=== PATIENT | female | born 1935 | race Caucasian/White ===

== ENCOUNTER 2016-06-27 10:47 | Inpatient (IN) | payer MEDICARE, OTHER ==
[~2016-06-27] VITALS: Ht 147.3 cm; Wt 53.6 kg
[2016-06-27] VITALS (207 sets, daily range): BP systolic 101–147; BP diastolic 58–84; PULSE 78–90; TEMP 97.9–100.4; O2SAT 94–100
[~2016-06-27 10:47] MED LIST: 00186-0370-20 IH; 00186-0372-20 IH; ALBUTEROL SULFAT3 M3 IH; ALBUTEROL0.83 MG/ML IH; ALDACTONE 25MG25 M1 PO; AMBIEN 10MG10 MG PO; AMBIEN 5MG TABLE5 MG PO; AMOXICILLIN 50500 MG PO; ASMANEX TW0.22 MG/A1 IH; AVELOX 400MG T400 MG PO; BACTRIM DS 8001 TAB PO; CALCIUM + D 6001 TA1 PO; CEFTIN 250250 MG/TAB PO; CEFTIN500 MG PO; CELEBREX 200MG200 MG PO; CEPHALEXIN500 M1 PO; CETIRIZINE PO; CLEOCIN HCL300 MG PO; CLINDAMYCIN300 MG PO; CORDARONE200 MG/TAB PO; COZAAR 25MG25 MG/TAB PO; DEXILANT PO; DIFLUCAN100 MG PO; DIFLUCAN150 MG PO; DILTIAZEM30 MG PO; DIOVAN160 M1 PO; DIOVAN80 M1 PO; DORYX100 PO; DOXYCYCLINE 10100 MG PO; DULCOLAX S10 MG/SUPP RC; FORTAMET500 MG PO; FOSAMAX 70MG TA70 MG PO; FUROSEMIDE40 MG PO; GLIPIZIDE5 MG PO; GLUCOPHAGE1000 MG PO; GLUCOPHAGE500 MG/TAB PO; GLUCOTROL 5M5 MG/TAB PO; GLUCOTROL10 MG PO; HCTZ; HCTZ 25MG TAB25 MG PO; HCTZ 25MG25 MG PO; ISORDIL 5MG TABL5 MG PO; JANUVIA 100MG100 MG PO; JANUVIA50 MG PO; K-TAB20; K-TAB20 PO; KAPIDEX60 MG PO; KEPPRA 500MG500 MG PO; KLONOPIN 0.5MG0.5 MG PO; KLOR-CON M2020 MEQ PO; LASIX 20MG TABL20 MG PO; LASIX 40MG TABL40 MG PO; LEVAQUIN 750MG750 M1 PO; LEVOTHYROXINE0.05 M1 PO; LIPITOR 10MG10 MG PO; LORTAB 2.5/5001 TAB PO; LORTAB 5/500 501 TAB PO; MACRODANTIN100 PO; MELATONIN3 M1; METFORMIN500 MG PO; MICRO-K 1010 MEQ PO; MIRALAX 17GM PK1 PKT PO; MIRALAX PA17 GM/Dose PO; MIRALAX119G PO; MIRALAX17 GM/DOSE PO; MIRAPEX 1MG PO; MIRAPEX PO; MIRAPEX1 MG PO; MORPHINE10 MG PO; MULTAQ400 MG PO; MULTIPLE VITAMI1 TAB PO; MVI; NITROSTAT0.4 MG/TAB SL; NYSTATIN CREAM15 GM TP; OMNICEF 300MG300 MG PO; PACERONE100 MG PO; PACERONE200 MG PO; PEPCID 20MG TAB20 MG PO; PLAVIX 75MG TAB75 MG PO; POTASSIUM CHLO10 ME2 PO; PREDNISONE10 MG PO; PREDNISONE20 MG PO; PREMARIN 0.60.625 M1 VG; PROTONIX 40MG T40 MG PO; PROTONIX20 MG PO; PROVENTIL0.09 MG/A1 IH; RT ADVAIR 228 DISKUS IH; RT ALBUTER2.5 MG/0.5 IH; SIMVASTATIN20 MG PO; SINEMET 10/101 UDTAB PO; SINGULAIR 110 MG/TAB PO; SINGULAIR10 MG PO; STALEVO; STALEVO 100 251 TAB PO; STALEVO PO; STOOL SOFTENER100 MG PO; SYNTHROID0.05 MG PO; SYNTHROID0.075 MG PO; SYNTHROID0.075 MG/T PO; TEMAZEPAM15 MG PO; TESSALON P100 MG/CAP PO; VENTOLIN0.09 MG IH; ZITHROMAX 250M250 MG PO; ZITHROMAX TRI-500 MG PO; ZOCOR 20MG20 MG PO; ZOCOR 40MG40 MG PO; ZOCOR20 MG PO; ZOFRAN 4MG T4 MG/TAB PO; ZOFRAN ODT8 MG PO; ZOFRAN4 M1 PO; ZOLPIDEM10 MG PO; ZYRTEC 10MG10 MG PO; ZYRTEC10 MG PO; [UNRECOGNIZED DRUG - OTHER] PO; eye drops
[2016-06-27] MEDS ORDERED: RT ADVAIR 228 DISKUS IH (12:02)
[2016-06-27 14:01] LABS: BASO # 0.1 (0.0-0.2); BASO % 0.7 % (0.0-2.0); EOS # 4.2 (0.0-0.7); GRAN # 9.8 (1.4-6.5); GRAN % 58.1 % (42.2-75.2); LYMPH # 1.8 (1.2-3.4); LYMPH % 10.8 % (20.0-51.0); MEAN CELL VOLUME 92 fl (80.0-100.0); MEAN CORPUSCULAR HGB CONC 32 g/dl (33.0-37.0); MEAN PLATELET VOLUME 10.2 fl (7.4-10.4); MONO # 0.9 (0.1-0.6); MONO % 5.3 % (1.7-9.3); PLATELET COUNT 158 K/mm3 (130-400); RED BLOOD COUNT 3.97 M/mm3 (4.10-5.30); REDCELL DISTRIBUTION WIDTH-CV 14.6 % (11.5-14.5); WHITE BLOOD COUNT 16.9 K/mm3 (4.8-10.8)
[2016-06-27 14:11] LABS: EOS % 24.9 % (0-4.0); HEMATOCRIT 36.5 % (37.0-47.0); HEMOGLOBIN 11.8 g/dl (12.5-16.0); MEAN CORPUSCULAR HEMOGLOBIN 30 pg (27.0-31.0)
[2016-06-27 14:21] LABS: ADJUSTED CALCIUM 9.6 mg/dL (8.4-10.2); ALBUMIN 4.1 gm/dL (3.5-5.0); BILIRUBIN,TOTAL 0.9 mg/dL (0.0-1.0); CALCIUM 9.7 mg/dL (8.4-10.2); CREATININE, serum 0.64 mg/dL (0.52-1.25); POTASSIUM 3.7 mmol/L (3.4-5.0); TOTAL PROTEIN 8.2 gm/dL (6.4-8.2)
[2016-06-27 15:11] LABS: ALLEN TEST NO; ARTERIAL BLD GAS O2 SATURATION 94.1 % (92-100); ARTERIAL BLD GAS TCO2 CT 36.9; ARTERIAL BLOOD GAS BASE EXCESS 7.4 (-2-2); ARTERIAL BLOOD GAS PHT 7.36 C (7.35-7.45); ARTERIAL BLOOD GAS PO2 74.6 mmHg (80-100); ARTERIAL BLOOD GAS PO2T 74.6 (80-100); ARTERIAL BLOOD GAS pH 7.36 (7.35-7.45); ATS? YES; OXYHEMOGLOBIN 93.3 %
[2016-06-28] VITALS (296 sets, daily range): BP systolic 104–137; BP diastolic 56–81; PULSE 73–91; TEMP 97.7–99.3; O2SAT 88–100
[2016-06-28 05:59] LABS: MEAN CELL VOLUME 92 fl (80.0-100.0); MEAN CORPUSCULAR HGB CONC 33 g/dl (33.0-37.0); MEAN PLATELET VOLUME 10.3 fl (7.4-10.4); PLATELET COUNT 150 K/mm3 (130-400); REDCELL DISTRIBUTION WIDTH-CV 14.5 % (11.5-14.5); WHITE BLOOD COUNT 9.7 K/mm3 (4.8-10.8)
[2016-06-28 06:13] LABS: ADD PATHOLOGY DIFF REVIEW NO; HEMATOCRIT 32.2 % (37.0-47.0); HEMOGLOBIN 10.5 g/dl (12.5-16.0); MEAN CORPUSCULAR HEMOGLOBIN 30 pg (27.0-31.0)
[2016-06-28 06:24] LABS: ADJUSTED CALCIUM 9.6 mg/dL (8.4-10.2); ALBUMIN 3.6 gm/dL (3.5-5.0); BILIRUBIN,TOTAL 0.5 mg/dL (0.0-1.0); CALCIUM 9.3 mg/dL (8.4-10.2); CREATININE, serum 0.71 mg/dL (0.52-1.25); POTASSIUM 3.9 mmol/L (3.4-5.0); TOTAL PROTEIN 7.3 gm/dL (6.4-8.2)
[2016-06-28 12:00] LABS: BAND 7 % (0-10); NEUTROPHILS 82 % (42.0-75.2); PLATELET ESTIMATE NORMAL (NORMAL); TOTAL CELLS COUNTED 100
[2016-06-29 01:04] VITALS: BP 128/78; PULSE 95; TEMP 98.3
[2016-06-29 04:30] VITALS: BP 110/57; PULSE 78; TEMP 97.5
[2016-06-29 08:20] VITALS: BP 134/71; PULSE 88; TEMP 98.4
[2016-06-29 12:05] VITALS: BP 138/69; PULSE 99; TEMP 98
[2016-06-29 12:41] LABS: ARTERIAL BLD GAS O2 SATURATION 93.7 % (92-100); ARTERIAL BLD GAS TCO2 CT 33.2; ARTERIAL BLOOD GAS BASE EXCESS 6.4 (-2-2); ARTERIAL BLOOD GAS HCO3 31.7 meq/L (22-26); ARTERIAL BLOOD GAS PHT 7.43 C (7.35-7.45); ARTERIAL BLOOD GAS PO2 71.6 mmHg (80-100); ARTERIAL BLOOD GAS PO2T 71.6 (80-100); ARTERIAL BLOOD GAS pH 7.43 (7.35-7.45); OXYHEMOGLOBIN 92.8 %
[2016-06-29 12:43] LABS: ALLEN TEST NO; ATS? YES
[2016-06-29 13:17] LABS: BASO % 0.1 % (0.0-2.0); GRAN # 9.9 (1.4-6.5); GRAN % 94.2 % (42.2-75.2); LYMPH # 0.4 (1.2-3.4); LYMPH % 3.5 % (20.0-51.0); MEAN CELL VOLUME 94 fl (80.0-100.0); MEAN CORPUSCULAR HGB CONC 32 g/dl (33.0-37.0); MEAN PLATELET VOLUME 10.5 fl (7.4-10.4); MONO # 0.2 (0.1-0.6); MONO % 1.6 % (1.7-9.3); PLATELET COUNT 182 K/mm3 (130-400); RED BLOOD COUNT 3.71 M/mm3 (4.10-5.30); REDCELL DISTRIBUTION WIDTH-CV 14.5 % (11.5-14.5); WHITE BLOOD COUNT 10.5 K/mm3 (4.8-10.8)
[2016-06-29 13:20] LABS: HEMATOCRIT 34.7 % (37.0-47.0); MEAN CORPUSCULAR HEMOGLOBIN 30 pg (27.0-31.0)
[2016-06-29 13:50] LABS: CALCIUM 9.7 mg/dL (8.4-10.2); CREATININE, serum 0.59 mg/dL (0.52-1.25); POTASSIUM 3.4 mmol/L (3.4-5.0)
[2016-06-29 17:07] VITALS: BP 109/55; PULSE 81; TEMP 98.2
[2016-06-29 20:23] VITALS: BP 113/64; PULSE 78; TEMP 97.6
[2016-06-30] VITALS (11 sets, daily range): BP systolic 112–152; BP diastolic 55–78; PULSE 70–81; TEMP 97.4–98.1
[2016-07-01 04:06] VITALS: BP 123/73; PULSE 73; TEMP 79.6
[2016-07-01 07:23] LABS: HEMATOCRIT 32.8 % (37.0-47.0); HEMOGLOBIN 10.3 g/dl (12.5-16.0); MEAN CELL VOLUME 94 fl (80.0-100.0); MEAN CORPUSCULAR HEMOGLOBIN 29 pg (27.0-31.0); MEAN CORPUSCULAR HGB CONC 31 g/dl (33.0-37.0); MEAN PLATELET VOLUME 10.5 fl (7.4-10.4); PLATELET COUNT 176 K/mm3 (130-400); REDCELL DISTRIBUTION WIDTH-CV 14.5 % (11.5-14.5); WHITE BLOOD COUNT 5.8 K/mm3 (4.8-10.8)
[2016-07-01 07:40] LABS: ADJUSTED CALCIUM 9.9 mg/dL (8.4-10.2); ALBUMIN 3.2 gm/dL (3.5-5.0); BILIRUBIN,TOTAL 0.4 mg/dL (0.0-1.0); CALCIUM 9.3 mg/dL (8.4-10.2); CREATININE, serum 0.59 mg/dL (0.52-1.25); POTASSIUM 4.4 mmol/L (3.4-5.0); TOTAL PROTEIN 6.5 gm/dL (6.4-8.2)
[2016-07-01 07:42] VITALS: BP 138/69; PULSE 78; TEMP 97.9
[2016-07-01 12:00] VITALS: BP 137/65; PULSE 86; TEMP 97.4
[2016-07-01 16:54] VITALS: BP 135/65; PULSE 85; TEMP 97.3
[2016-07-01 19:39] VITALS: BP 140/70; PULSE 82; TEMP 98
[2016-07-01 23:02] VITALS: BP 123/63; PULSE 77; TEMP 97.7
[2016-07-02 03:34] VITALS: BP 122/67; PULSE 73; TEMP 98.7
[2016-07-02 07:23] LABS: MEAN CELL VOLUME 93 fl (80.0-100.0); MEAN CORPUSCULAR HGB CONC 32 g/dl (33.0-37.0); MEAN PLATELET VOLUME 10.4 fl (7.4-10.4); PLATELET COUNT 189 K/mm3 (130-400); RED BLOOD COUNT 3.47 M/mm3 (4.10-5.30); REDCELL DISTRIBUTION WIDTH-CV 14.4 % (11.5-14.5); WHITE BLOOD COUNT 6.4 K/mm3 (4.8-10.8)
[2016-07-02 07:29] LABS: HEMATOCRIT 32.4 % (37.0-47.0); HEMOGLOBIN 10.3 g/dl (12.5-16.0); MEAN CORPUSCULAR HEMOGLOBIN 30 pg (27.0-31.0)
[2016-07-02 07:30] LABS: ADD PATHOLOGY DIFF REVIEW NO
[2016-07-02 07:49] LABS: ADJUSTED CALCIUM 9.7 mg/dL (8.4-10.2); ALBUMIN 3.1 gm/dL (3.5-5.0); BILIRUBIN,TOTAL 0.5 mg/dL (0.0-1.0); CREATININE, serum 0.52 mg/dL (0.52-1.25); POTASSIUM 3.9 mmol/L (3.4-5.0); TOTAL PROTEIN 6.4 gm/dL (6.4-8.2)
[2016-07-02 08:00] VITALS: BP 161/84; PULSE 86; TEMP 97.9
[2016-07-02 08:44] LABS: BAND 2 % (0-10); MYELOCYTE 1 % (0-0); NEUTROPHILS 75 % (42.0-75.2); TOTAL CELLS COUNTED 100
[2016-07-02 11:22] VITALS: BP 140/59; PULSE 86
[2016-07-02] MEDS ORDERED: LEVAQUIN 5500 MG/TA1 PO (13:36)
[2016-07-02] MEDS ORDERED: PREDNISONE20 MG PO (13:39)
[2016-07-02] MEDS ORDERED: PULMICORT R1 MG/2 ML IH ×2 (13:53→14:07)
== END 2016-07-02 17:33 | disposition home health service (06) | DRG 871 ==
LOC: MEDICAL 10:47 → IMCU 16:42 → MEDICAL 06-28 18:30
PROVIDERS: Internal Medicine; Internal Medicine Pulmonary Disease; Nurse Practitioner Family
PROC: 0BC78ZZ Extirpation of Matter from Left Main Bronchus, Via Natural or Artificial Opening Endoscopic (ICD-10-PCS; 2016-06-30)
PROC: 0BC38ZZ Extirpation of Matter from Right Main Bronchus, Via Natural or Artificial Opening Endoscopic (ICD-10-PCS; principal; 2016-06-30 09:00)
DX: A41.9 Sepsis, unspecified organism (principal); J15.6 Pneumonia due to other Gram-negative bacteria; J96.22 Acute and chronic respiratory failure with hypercapnia; J96.21 Acute and chronic respiratory failure with hypoxia; J44.1 Chronic obstructive pulmonary disease with (acute) exacerbation; I50.30 Unspecified diastolic (congestive) heart failure; T17.590A Other foreign object in bronchus causing asphyxiation, initial encounter; G47.33 Obstructive sleep apnea (adult) (pediatric); I48.0 Paroxysmal atrial fibrillation; G20 Parkinson's disease; E03.9 Hypothyroidism, unspecified; G40.909 Epilepsy, unspecified, not intractable, without status epilepticus; K22.2 Esophageal obstruction; Z95.5 Presence of coronary angioplasty implant and graft; Z95.0 Presence of cardiac pacemaker; I11.0 Hypertensive heart disease with heart failure; E11.65 Type 2 diabetes mellitus with hyperglycemia; Z79.84 Long term (current) use of oral hypoglycemic drugs; Z77.22 Contact with and (suspected) exposure to environmental tobacco smoke (acute) (chronic)
CPT/HCPCS: 99223-AI; 99232-AI; 99233-AI; 99239; J0456; J0696; J1650; J1815; J2185; J2405; J2704; J2920; J2930; J7050; J7512; Q9967

== ENCOUNTER 2016-07-08 13:58 | Emergency (ER) | payer MEDICARE, OTHER ==
[2008-08-13 20:09] VITALS: BP 122/80
[~2016-07-08] VITALS: Ht 144.8 cm; Wt 54.5 kg
[~2016-07-08 13:58] MED LIST changes: +LEVAQUIN 5500 MG/TA1 PO; +PULMICORT R1 MG/2 ML IH
[2016-07-08 14:01] VITALS: TEMP 97.4
[2016-07-08] MEDS ORDERED: NORCO 325 MG-51 TAB PO (16:25)
[2016-07-08 17:58] VITALS: BP 153/95; PULSE 89
== END 2016-07-08 18:00 | disposition home or self-care (01) ==
LOC: COL.ER 13:58
DX: S30.0XXA Contusion of lower back and pelvis, initial encounter (principal); W01.198A Fall on same level from slipping, tripping and stumbling with subsequent striking against other object, initial encounter; Y92.239 Unspecified place in hospital as the place of occurrence of the external cause; I10 Essential (primary) hypertension; J44.9 Chronic obstructive pulmonary disease, unspecified

== ENCOUNTER → 2016-11-07 | Outpatient (CLI) | payer MEDICARE, OTHER ==
[~2016-11-07] MED LIST changes: +ALMACONE 360 M360 ML PO; +GLUCOPHAGE850 MG/TAB PO; +IMODIUM 2MG CAPS2 MG PO; +LASIX 80MG TABL80 MG PO; +MILK OF MA400 MG/52; +NORCO 325 MG-51 TAB PO; +PROAIR HFA0.09 MG/AC IH; +RT ADVAIR HFA 2312 G IH; +SINEMET 25/101 UDTAB PO; +TYLENOL 325MG325 MG PO; +TYLENOL SU650 MG/SUP RC
== END ==
LOC: MC.RAD 10:31
DX: D24.2 Benign neoplasm of left breast (principal); Z90.11 Acquired absence of right breast and nipple; Z85.3 Personal history of malignant neoplasm of breast

== ENCOUNTER 2016-11-21 20:28 | Inpatient (IN) | payer MEDICARE, OTHER ==
[2016-11-21] VITALS (17 sets, daily range): BP systolic 147; BP diastolic 81; PULSE 78; TEMP 98.5; O2SAT 95–97
[~2016-11-21] VITALS: Ht 144.8 cm; Wt 58.1 kg
[~2016-11-21 20:28] MED LIST changes: -ALMACONE 360 M360 ML PO; -GLUCOPHAGE850 MG/TAB PO; -IMODIUM 2MG CAPS2 MG PO; -LASIX 80MG TABL80 MG PO; -MILK OF MA400 MG/52; -PROAIR HFA0.09 MG/AC IH; -RT ADVAIR HFA 2312 G IH; -SINEMET 25/101 UDTAB PO; -TYLENOL 325MG325 MG PO; -TYLENOL SU650 MG/SUP RC
[2016-11-21 21:09] LABS: HEMATOCRIT 37.8 % (37.0-47.0); HEMOGLOBIN 12.5 g/dl (12.5-16.0); MEAN CELL VOLUME 92 fl (80.0-100.0); MEAN CORPUSCULAR HEMOGLOBIN 30 pg (27.0-31.0); MEAN CORPUSCULAR HGB CONC 33 g/dl (33.0-37.0); PLATELET COUNT 179 K/mm3 (130-400); RED BLOOD COUNT 4.13 M/mm3 (4.10-5.30); REDCELL DISTRIBUTION WIDTH-CV 13.5 % (11.5-14.5); WHITE BLOOD COUNT 18.7 K/mm3 (4.8-10.8)
[2016-11-21 21:12] LABS: ADD PATHOLOGY DIFF REVIEW NO
[2016-11-21 21:15] LABS: PROTHROMBIN TIME 11.3 SECONDS (9.7-12.8)
[2016-11-21 21:22] LABS: ADJUSTED CALCIUM 8.9 mg/dL (8.4-10.2); ALBUMIN 4.3 gm/dL (3.5-5.0); BILIRUBIN,TOTAL 0.6 mg/dL (0.0-1.0); C-REACTIVE PROTEIN 2.6 mg/dL (0.0-0.9); CALCIUM 9.1 mg/dL (8.4-10.2); CREATININE, serum 0.95 mg/dL (0.52-1.25); POTASSIUM 3.1 mmol/L (3.4-5.0); TOTAL PROTEIN 8.3 gm/dL (6.4-8.2)
[2016-11-21 21:23] LABS: BAND 7 % (0-10); BASOPHIL 1 % (0-2); EOSINOPHIL 46 % (0-4); NEUTROPHILS 32 % (42.0-75.2); TOTAL CELLS COUNTED 100
[2016-11-21 21:24] LABS: PLATELET ESTIMATE NORMAL (NORMAL)
[2016-11-21 21:32] LABS: TROPONIN-I 0.517 ng/mL (0.000-0.034)
[2016-11-21 22:23] LABS: PH 5 (5-8); SQUAMOUS EPITHELIAL None Seen /hpf; URINE APPEARANCE Clear; URINE BACTERIA None Seen /hpf; URINE BILIRUBIN Negative (NEGATIVE); URINE BLOOD Negative (NEGATIVE); URINE COLOR Yellow; URINE GLUCOSE Negative (NEGATIVE); URINE KETONE Negative (NEGATIVE); URINE RBC 0-2 /hpf; URINE UROBILINOGEN Negative (NEGATIVE); URINE WBC 0-2 /hpf
[2016-11-21] MEDS ORDERED: GLUCOPHAGE850 MG/TAB PO (22:49)
[2016-11-21] MEDS ORDERED: STALEVO PO (22:51)
[2016-11-21] MEDS ORDERED: PACERONE100 MG PO (22:54)
[2016-11-21] MEDS ORDERED: ZOCOR 40MG40 MG PO (22:55)
[2016-11-21] MEDS ORDERED: PROAIR HFA0.09 MG/AC IH (22:58)
[2016-11-21] MEDS ORDERED: ALBUTEROL0.83 MG/ML IH (23:48)
[2016-11-22] VITALS (623 sets, daily range): BP systolic 110–127; BP diastolic 59–73; PULSE 67–83; TEMP 97.5–98.2; O2SAT 92–100
[2016-11-22] MEDS ORDERED: LASIX 40MG TABL40 MG PO (00:27)
[2016-11-22 00:52] LABS: MAGNESIUM 1.1 mg/dL (1.6-2.3)
[2016-11-22 04:05] LABS: BASO # 0.1 (0.0-0.2); BASO % 0.7 % (0.0-2.0); EOS # 0.6 (0.0-0.7); EOS % 7.8 % (0-4.0); GRAN # 6.2 (1.4-6.5); GRAN % 81.7 % (42.2-75.2); HEMATOCRIT 33.5 % (37.0-47.0); HEMOGLOBIN 11.3 g/dl (12.5-16.0); LYMPH # 0.6 (1.2-3.4); LYMPH % 8.2 % (20.0-51.0); MEAN CELL VOLUME 90 fl (80.0-100.0); MEAN CORPUSCULAR HEMOGLOBIN 30 pg (27.0-31.0); MEAN CORPUSCULAR HGB CONC 34 g/dl (33.0-37.0); MONO # 0.1 (0.1-0.6); MONO % 1.1 % (1.7-9.3); PLATELET COUNT 158 K/mm3 (130-400); RED BLOOD COUNT 3.72 M/mm3 (4.10-5.30); REDCELL DISTRIBUTION WIDTH-CV 13.2 % (11.5-14.5); WHITE BLOOD COUNT 7.6 K/mm3 (4.8-10.8)
[2016-11-22 04:09] LABS: CALCIUM 8.1 mg/dL (8.4-10.2); CREATININE, serum 0.72 mg/dL (0.52-1.25); POTASSIUM 3.6 mmol/L (3.4-5.0)
[2016-11-23 00:27] VITALS: BP 106/53; PULSE 82; TEMP 97.1
[2016-11-23 04:59] VITALS: BP 133/69; PULSE 87; TEMP 97.3
[2016-11-23 07:46] VITALS: BP 111/49; PULSE 87; TEMP 97.3
[2016-11-23 12:10] VITALS: BP 109/48; PULSE 82; TEMP 98.4
[2016-11-23 15:32] VITALS: BP 125/72; PULSE 92; TEMP 98.5
[2016-11-23 21:45] VITALS: BP 122/62; PULSE 83; TEMP 97.8
[2016-11-24] VITALS (7 sets, daily range): BP systolic 116–151; BP diastolic 61–86; PULSE 76–88; TEMP 97.5–98.5
[2016-11-24 10:16] LABS: BASO % 0.1 % (0.0-2.0); EOS # 0.2 (0.0-0.7); EOS % 1.8 % (0-4.0); GRAN # 8.5 (1.4-6.5); GRAN % 81.4 % (42.2-75.2); HEMATOCRIT 33.1 % (37.0-47.0); HEMOGLOBIN 10.9 g/dl (12.5-16.0); LYMPH # 1.2 (1.2-3.4); LYMPH % 11.3 % (20.0-51.0); MEAN CELL VOLUME 91 fl (80.0-100.0); MEAN CORPUSCULAR HEMOGLOBIN 30 pg (27.0-31.0); MEAN CORPUSCULAR HGB CONC 33 g/dl (33.0-37.0); MEAN PLATELET VOLUME 10.2 fl (7.4-10.4); MONO # 0.5 (0.1-0.6); MONO % 4.4 % (1.7-9.3); PLATELET COUNT 193 K/mm3 (130-400); RED BLOOD COUNT 3.65 M/mm3 (4.10-5.30); REDCELL DISTRIBUTION WIDTH-CV 13.6 % (11.5-14.5); WHITE BLOOD COUNT 10.4 K/mm3 (4.8-10.8)
[2016-11-24 10:20] LABS: CALCIUM 7.6 mg/dL (8.4-10.2); CREATININE, serum 0.87 mg/dL (0.52-1.25); POTASSIUM 3.4 mmol/L (3.4-5.0)
[2016-11-25 04:09] VITALS: BP 127/68; PULSE 73; TEMP 97.7
[2016-11-25 06:55] LABS: CALCIUM 7.6 mg/dL (8.4-10.2); CREATININE, serum 0.85 mg/dL (0.52-1.25); POTASSIUM 3.6 mmol/L (3.4-5.0)
[2016-11-25 08:35] VITALS: BP 125/68; PULSE 80; TEMP 98.7
[2016-11-25] MEDS ORDERED: LASIX 80MG TABL80 MG PO (10:11)
[2016-11-25] MEDS ORDERED: PROTONIX 40MG T40 MG PO (10:12)
== END 2016-11-25 13:23 | disposition home or self-care (01) | DRG 190 ==
LOC: COL.ER 20:28 → ICU 22:23 → MEDICAL 11-22 16:13
PROVIDERS: Emergency Medicine; Internal Medicine; Internal Medicine Cardiovascular Disease; Nurse Practitioner Family
DX: J44.1 Chronic obstructive pulmonary disease with (acute) exacerbation (principal); I21.4 Non-ST elevation (NSTEMI) myocardial infarction; I50.33 Acute on chronic diastolic (congestive) heart failure; E43 Unspecified severe protein-calorie malnutrition; I11.0 Hypertensive heart disease with heart failure; G47.33 Obstructive sleep apnea (adult) (pediatric); Z66 Do not resuscitate; J44.0 Chronic obstructive pulmonary disease with (acute) lower respiratory infection; G20 Parkinson's disease; J20.9 Acute bronchitis, unspecified; E11.65 Type 2 diabetes mellitus with hyperglycemia; I48.0 Paroxysmal atrial fibrillation; E87.6 Hypokalemia; I25.10 Atherosclerotic heart disease of native coronary artery without angina pectoris; I44.0 Atrioventricular block, first degree; K22.2 Esophageal obstruction; G40.909 Epilepsy, unspecified, not intractable, without status epilepticus; Z95.0 Presence of cardiac pacemaker; Z95.5 Presence of coronary angioplasty implant and graft; Z85.3 Personal history of malignant neoplasm of breast; Z68.26 Body mass index [BMI] 26.0-26.9, adult
CPT/HCPCS: 99223-AI; 99232-AI; 99233-AI; 99239; C9113; J1815; J1940; J2543; J2930; J3480; J7030; J7050; J7512; Q9967

== ENCOUNTER 2016-11-29 12:38 | Inpatient (IN) | payer MEDICARE, OTHER ==
[~2016-11-29] VITALS: Ht 144.8 cm; Wt 54.7 kg
[~2016-11-29 12:38] MED LIST changes: +GLUCOPHAGE850 MG/TAB PO; +LASIX 80MG TABL80 MG PO; +PROAIR HFA0.09 MG/AC IH
[2016-11-29 12:53] VITALS: BP 113/66; PULSE 84
[2016-11-29 13:10] LABS: BASO # 0.1 (0.0-0.2); BASO % 0.4 % (0.0-2.0); EOS # 1.6 (0.0-0.7); GRAN # 11.5 (1.4-6.5); GRAN % 72.8 % (42.2-75.2); HEMATOCRIT 38.2 % (37.0-47.0); HEMOGLOBIN 12.6 g/dl (12.5-16.0); LYMPH # 1.5 (1.2-3.4); LYMPH % 9.6 % (20.0-51.0); MEAN CELL VOLUME 90 fl (80.0-100.0); MEAN CORPUSCULAR HEMOGLOBIN 30 pg (27.0-31.0); MEAN CORPUSCULAR HGB CONC 33 g/dl (33.0-37.0); MEAN PLATELET VOLUME 9.8 fl (7.4-10.4); MONO % 6.6 % (1.7-9.3); PLATELET COUNT 195 K/mm3 (130-400); RED BLOOD COUNT 4.24 M/mm3 (4.10-5.30); REDCELL DISTRIBUTION WIDTH-CV 13.4 % (11.5-14.5); WHITE BLOOD COUNT 15.8 K/mm3 (4.8-10.8)
[2016-11-29 13:23] LABS: ADJUSTED CALCIUM 9.3 mg/dL (8.4-10.2); ALANINE AMINOTRANSFERASE 13 U/L (9-52); ALBUMIN 4.2 gm/dL (3.5-5.0); ALKALINE PHOSPHATASE 84 U/L (50-136); ANION GAP 10 mmol/L (7-16); BILIRUBIN,TOTAL 1.2 mg/dL (0.0-1.0); BLOOD UREA NITROGEN 36 mg/dL (7-17); CALCIUM 9.5 mg/dL (8.4-10.2); CARBON DIOXIDE 35 mmol/L (22-30); CHLORIDE 93 mmol/L (98-107); CREATINE KINASE < 20 U/L (30-135); CREATININE, serum 1.01 mg/dL (0.52-1.25); GLUCOSE 118 mg/dL (74-106); POTASSIUM 3.9 mmol/L (3.4-5.0); SODIUM 138 mmol/L (137-145); TOTAL PROTEIN 7.9 gm/dL (6.4-8.2)
[2016-11-29 13:30] LABS: PH 8 (5-8); SQUAMOUS EPITHELIAL None Seen /hpf; URINE APPEARANCE Clear; URINE BACTERIA None Seen /hpf; URINE BILIRUBIN Negative (NEGATIVE); URINE BLOOD Negative (NEGATIVE); URINE COLOR Yellow; URINE GLUCOSE Negative (NEGATIVE); URINE KETONE Negative (NEGATIVE); URINE RBC 0-2 /hpf; URINE UROBILINOGEN Negative (NEGATIVE); URINE WBC 0-2 /hpf
[2016-11-29 13:33] LABS: TROPONIN-I 0.048 ng/mL (0.000-0.034)
[2016-11-29 16:51] LABS: ERYTHROCYTE SEDIMENTATION RATE 47 mm/hr (0-30)
[2016-11-29 17:51] VITALS: BP 98/56; PULSE 80; TEMP 97.7
[2016-11-29 17:59] LABS: B-TYPE NATRIURETIC PEPTIDE 629 pg/mL (0-450)
[2016-11-29 20:32] VITALS: BP 110/54; PULSE 80; TEMP 97.9
[2016-11-30 00:38] VITALS: BP 108/51; PULSE 82; TEMP 97.6
[2016-11-30 04:35] VITALS: BP 114/51; PULSE 83; TEMP 97.6
[2016-11-30 07:22] LABS: BASO # 0.1 (0.0-0.2); BASO % 0.4 % (0.0-2.0); EOS # 2.3 (0.0-0.7); GRAN # 6.7 (1.4-6.5); GRAN % 55.6 % (42.2-75.2); LYMPH % 16.2 % (20.0-51.0); MEAN CELL VOLUME 92 fl (80.0-100.0); MEAN CORPUSCULAR HGB CONC 33 g/dl (33.0-37.0); MEAN PLATELET VOLUME 10.6 fl (7.4-10.4); MONO % 8.4 % (1.7-9.3); PLATELET COUNT 167 K/mm3 (130-400); RED BLOOD COUNT 3.59 M/mm3 (4.10-5.30); REDCELL DISTRIBUTION WIDTH-CV 13.5 % (11.5-14.5); WHITE BLOOD COUNT 12.1 K/mm3 (4.8-10.8)
[2016-11-30 07:27] VITALS: BP 115/54; PULSE 82; TEMP 97.9
[2016-11-30 07:32] LABS: HEMATOCRIT 32.9 % (37.0-47.0); HEMOGLOBIN 10.7 g/dl (12.5-16.0); MEAN CORPUSCULAR HEMOGLOBIN 30 pg (27.0-31.0)
[2016-11-30 07:39] LABS: CREATININE, serum 0.88 mg/dL (0.52-1.25); POTASSIUM 3.4 mmol/L (3.4-5.0)
[2016-11-30 11:35] VITALS: BP 110/46; PULSE 87; TEMP 98
[2016-11-30 15:29] VITALS: BP 130/53; PULSE 95; TEMP 98.5
[2016-11-30 20:21] VITALS: BP 131/62; PULSE 81; TEMP 98
[2016-12-01] VITALS (7 sets, daily range): BP systolic 104–137; BP diastolic 54–64; PULSE 72–87; TEMP 97.3–99.3
[2016-12-01] MEDS ORDERED: RT ADVAIR HFA 2312 G IH (07:42)
[2016-12-02 03:51] VITALS: BP 107/56; PULSE 82; TEMP 98.2
[2016-12-02] MEDS ORDERED: SINEMET 25/101 UDTAB PO (08:08)
[2016-12-02 08:52] VITALS: BP 118/56; PULSE 72; TEMP 98.7
[2016-12-02 09:02] LABS: BASO # 0.1 (0.0-0.2); BASO % 0.6 % (0.0-2.0); EOS # 2.4 (0.0-0.7); EOS % 19.6 % (0-4.0); GRAN # 7.1 (1.4-6.5); GRAN % 57.2 % (42.2-75.2); LYMPH # 1.9 (1.2-3.4); LYMPH % 15.4 % (20.0-51.0); MEAN CELL VOLUME 92 fl (80.0-100.0); MEAN CORPUSCULAR HGB CONC 33 g/dl (33.0-37.0); MEAN PLATELET VOLUME 10.8 fl (7.4-10.4); MONO # 0.8 (0.1-0.6); MONO % 6.6 % (1.7-9.3); PLATELET COUNT 215 K/mm3 (130-400); RED BLOOD COUNT 3.78 M/mm3 (4.10-5.30); REDCELL DISTRIBUTION WIDTH-CV 13.5 % (11.5-14.5); WHITE BLOOD COUNT 12.3 K/mm3 (4.8-10.8)
[2016-12-02 09:03] LABS: HEMATOCRIT 34.8 % (37.0-47.0); HEMOGLOBIN 11.4 g/dl (12.5-16.0); MEAN CORPUSCULAR HEMOGLOBIN 30 pg (27.0-31.0)
[2016-12-02 10:52] LABS: ANION GAP 10 mmol/L (7-16); BLOOD UREA NITROGEN 25 mg/dL (7-17); CALCIUM 9.2 mg/dL (8.4-10.2); CARBON DIOXIDE 32 mmol/L (22-30); CHLORIDE 93 mmol/L (98-107); CREATININE, serum 0.78 mg/dL (0.52-1.25); GLUCOSE 148 mg/dL (74-106); POTASSIUM 3.7 mmol/L (3.4-5.0); SODIUM 135 mmol/L (137-145); TROPONIN-I < 0.012 ng/mL (0.000-0.034)
[2016-12-02 11:30] VITALS: BP 128/70; PULSE 88; TEMP 97.3
[2016-12-02] MEDS ORDERED: KLONOPIN 0.5MG0.5 MG PO (14:20)
[2016-12-02 15:04] VITALS: BP 128/70; PULSE 88; TEMP 97.3
== END 2016-12-02 15:35 | DRG 57 ==
LOC: COL.ER 12:38 → MEDICAL 16:01
PROVIDERS: Emergency Medicine; Nurse Practitioner Family
DX: G20 Parkinson's disease (principal); I50.32 Chronic diastolic (congestive) heart failure; Z66 Do not resuscitate; I25.10 Atherosclerotic heart disease of native coronary artery without angina pectoris; Z95.5 Presence of coronary angioplasty implant and graft; I11.0 Hypertensive heart disease with heart failure; E11.42 Type 2 diabetes mellitus with diabetic polyneuropathy; I48.0 Paroxysmal atrial fibrillation; Z95.0 Presence of cardiac pacemaker; J44.9 Chronic obstructive pulmonary disease, unspecified; Z85.3 Personal history of malignant neoplasm of breast; R56.9 Unspecified convulsions; I08.3 Combined rheumatic disorders of mitral, aortic and tricuspid valves
CPT/HCPCS: OP; 99223-AI; 99233-AI; 99239; J1650; J7030; Q9967

== ENCOUNTER 2017-01-15 18:28 | Emergency (ER) | payer MEDICARE, OTHER ==
[2008-08-13 20:09] VITALS: BP 122/80
[~2017-01-15] VITALS: Ht 144.8 cm; Wt 56.8 kg
[~2017-01-15 18:28] MED LIST changes: +RT ADVAIR HFA 2312 G IH; +SINEMET 25/101 UDTAB PO
[2017-01-15 18:31] VITALS: BP 170/95; TEMP 98
[2017-01-15] MEDS ORDERED: MILK OF MA400 MG/52 (19:31)
[2017-01-15] MEDS ORDERED: ALMACONE 360 M360 ML PO (19:31)
[2017-01-15] MEDS ORDERED: TYLENOL SU650 MG/SUP RC (19:32)
[2017-01-15] MEDS ORDERED: DULCOLAX S10 MG/SUPP RC (19:32)
[2017-01-15] MEDS ORDERED: TYLENOL 325MG325 MG PO (19:33)
[2017-01-15] MEDS ORDERED: IMODIUM 2MG CAPS2 MG PO (19:33)
[2017-01-15] MEDS ORDERED: MIRAPEX 1MG PO (19:34)
[2017-01-15 19:47] LABS: MEAN CELL VOLUME 90 fl (80.0-100.0); MEAN CORPUSCULAR HGB CONC 33 g/dl (33.0-37.0); MEAN PLATELET VOLUME 10.5 fl (7.4-10.4); PLATELET COUNT 165 K/mm3 (130-400); RED BLOOD COUNT 3.85 M/mm3 (4.10-5.30); REDCELL DISTRIBUTION WIDTH-CV 14.6 % (11.5-14.5); WHITE BLOOD COUNT 12.8 K/mm3 (4.8-10.8)
[2017-01-15 19:56] LABS: ANION GAP 14 mmol/L (7-16); BLOOD UREA NITROGEN 27 mg/dL (7-17); CALCIUM 9.6 mg/dL (8.4-10.2); CARBON DIOXIDE 26 mmol/L (22-30); CHLORIDE 99 mmol/L (98-107); CREATININE, serum 1.11 mg/dL (0.52-1.25); GLUCOSE 116 mg/dL (74-106); HEMATOCRIT 34.7 % (37.0-47.0); HEMOGLOBIN 11.4 g/dl (12.5-16.0); MEAN CORPUSCULAR HEMOGLOBIN 30 pg (27.0-31.0); POTASSIUM 4.2 mmol/L (3.4-5.0); SODIUM 139 mmol/L (137-145)
[2017-01-15 19:57] LABS: ADD PATHOLOGY DIFF REVIEW NO
[2017-01-15 20:08] LABS: B-TYPE NATRIURETIC PEPTIDE 369 pg/mL (0-450)
[2017-01-15 20:09] LABS: TROPONIN-I < 0.012 ng/mL (0.000-0.034)
[2017-01-15] MEDS ORDERED: LEVAQUIN 750MG750 M1 PO (20:58)
[2017-01-15] MEDS ORDERED: PREDNISONE20 MG PO (20:58)
[2017-01-15 21:12] VITALS: PULSE 88
[2017-01-15 21:24] LABS: BAND 4 % (0-10); BASOPHIL 2 % (0-2); EOSINOPHIL 32 % (0-4); NEUTROPHILS 49 % (42.0-75.2); PLATELET ESTIMATE NORMAL (NORMAL); TOTAL CELLS COUNTED 100
== END 2017-01-15 21:12 | disposition home or self-care (01) ==
LOC: COL.ER 18:28
PROVIDERS: Emergency Medicine
DX: J44.1 Chronic obstructive pulmonary disease with (acute) exacerbation (principal); E11.9 Type 2 diabetes mellitus without complications; I11.0 Hypertensive heart disease with heart failure; I50.9 Heart failure, unspecified; Z79.02 Long term (current) use of antithrombotics/antiplatelets; G20 Parkinson's disease; Z79.84 Long term (current) use of oral hypoglycemic drugs; Z95.0 Presence of cardiac pacemaker; Z98.51 Tubal ligation status; Z90.89 Acquired absence of other organs
CPT/HCPCS: J7512

== ENCOUNTER 2017-01-20 18:16 | Observation (INO) | payer MEDICARE, OTHER ==
[~2017-01-20] VITALS: Ht 144.8 cm; Wt 56.6 kg
[~2017-01-20 18:16] MED LIST changes: +ALMACONE 360 M360 ML PO; +IMODIUM 2MG CAPS2 MG PO; +MILK OF MA400 MG/52; +TYLENOL 325MG325 MG PO; +TYLENOL SU650 MG/SUP RC
[2017-01-20 18:55] LABS: BASO # 0.1 (0.0-0.2); BASO % 0.8 % (0.0-2.0); EOS # 0.6 (0.0-0.7); EOS % 6.1 % (0-4.0); GRAN # 5.2 (1.4-6.5); GRAN % 58.3 % (42.2-75.2); HEMOGLOBIN 12.3 g/dl (12.5-16.0); LYMPH # 2.4 (1.2-3.4); LYMPH % 26.2 % (20.0-51.0); MEAN CELL VOLUME 89 fl (80.0-100.0); MEAN CORPUSCULAR HEMOGLOBIN 30 pg (27.0-31.0); MEAN CORPUSCULAR HGB CONC 33 g/dl (33.0-37.0); MEAN PLATELET VOLUME 10.3 fl (7.4-10.4); MONO # 0.7 (0.1-0.6); MONO % 8.2 % (1.7-9.3); PLATELET COUNT 212 K/mm3 (130-400); RED BLOOD COUNT 4.14 M/mm3 (4.10-5.30); REDCELL DISTRIBUTION WIDTH-CV 14.6 % (11.5-14.5)
[2017-01-20 19:05] LABS: ALANINE AMINOTRANSFERASE 22 U/L (9-52); ALBUMIN 4.5 gm/dL (3.5-5.0); ALKALINE PHOSPHATASE 95 U/L (50-136); ANION GAP 16 mmol/L (7-16); BILIRUBIN,TOTAL 0.7 mg/dL (0.0-1.0); BLOOD UREA NITROGEN 49 mg/dL (7-17); CALCIUM 9.4 mg/dL (8.4-10.2); CARBON DIOXIDE 32 mmol/L (22-30); CHLORIDE 94 mmol/L (98-107); CREATININE, serum 1.42 mg/dL (0.52-1.25); GLUCOSE 141 mg/dL (74-106); INR 1.1 (0.8-3.0); PROTHROMBIN TIME 12.7 SECONDS (9.7-12.8); SODIUM 142 mmol/L (137-145); TOTAL PROTEIN 8.4 gm/dL (6.4-8.2)
[2017-01-20 19:07] LABS: PARTIAL THROMBOPLASTIN TIME 26.2 SECONDS (26.0-37.0)
[2017-01-20 19:17] LABS: B-TYPE NATRIURETIC PEPTIDE 411 pg/mL (0-450)
[2017-01-20 19:18] LABS: TROPONIN-I < 0.012 ng/mL (0.000-0.034)
[2017-01-20] MEDS ORDERED: TYLENOL SU650 MG/SUP RC (20:22)
[2017-01-20 20:23] LABS: ARTERIAL BLD GAS O2 SATURATION 93.7 % (92-100); ARTERIAL BLD GAS TCO2 CT 32.7; ARTERIAL BLOOD GAS BASE EXCESS 7.3 (-2-2); ARTERIAL BLOOD GAS HCO3 31.4 meq/L (22-26); ARTERIAL BLOOD GAS PO2 67.7 mmHg (80-100); ARTERIAL BLOOD GAS pH 7.49 (7.35-7.45); OXYHEMOGLOBIN 92.8 %
[2017-01-20 20:24] LABS: ALLEN TEST YES; ALLENS TEST RESULT PASS; ATS? YES
[2017-01-20 21:39] VITALS: BP 113/81; PULSE 84; TEMP 98.6
[2017-01-20 23:19] VITALS: BP 115/58; PULSE 79; TEMP 97.6
[2017-01-21 02:09] LABS: PH 5 (5-8); SQUAMOUS EPITHELIAL None Seen /hpf; URINE APPEARANCE Clear; URINE BACTERIA None Seen /hpf; URINE BILIRUBIN Negative (NEGATIVE); URINE BLOOD Negative (NEGATIVE); URINE COLOR Yellow; URINE GLUCOSE Negative (NEGATIVE); URINE KETONE Negative (NEGATIVE); URINE RBC 0-2 /hpf; URINE UROBILINOGEN Negative (NEGATIVE); URINE WBC 0-2 /hpf
[2017-01-21 02:22] LABS: INFLUENZA B NEGATIVE
[2017-01-21 03:23] VITALS: BP 100/55; PULSE 80; TEMP 97.4
[2017-01-21 07:45] VITALS: BP 98/52; PULSE 85; TEMP 97.3
[2017-01-21 09:13] LABS: MEAN CELL VOLUME 90 fl (80.0-100.0); MEAN CORPUSCULAR HGB CONC 33 g/dl (33.0-37.0); MEAN PLATELET VOLUME 10.5 fl (7.4-10.4); PLATELET COUNT 188 K/mm3 (130-400); RED BLOOD COUNT 3.57 M/mm3 (4.10-5.30); REDCELL DISTRIBUTION WIDTH-CV 14.7 % (11.5-14.5); WHITE BLOOD COUNT 4.9 K/mm3 (4.8-10.8)
[2017-01-21 09:15] LABS: ADD PATHOLOGY DIFF REVIEW NO; HEMOGLOBIN 10.6 g/dl (12.5-16.0); MEAN CORPUSCULAR HEMOGLOBIN 30 pg (27.0-31.0)
[2017-01-21 09:17] LABS: ADJUSTED CALCIUM 8.5 mg/dL (8.4-10.2); ALBUMIN 3.7 gm/dL (3.5-5.0); BILIRUBIN,TOTAL 0.6 mg/dL (0.0-1.0); CALCIUM 8.3 mg/dL (8.4-10.2); CREATININE, serum 1.11 mg/dL (0.52-1.25); TOTAL PROTEIN 6.9 gm/dL (6.4-8.2)
[2017-01-21 10:24] LABS: BAND 12 % (0-10); EOSINOPHIL 1 % (0-4); NEUTROPHILS 82 % (42.0-75.2); PLATELET ESTIMATE NORMAL (NORMAL); TOTAL CELLS COUNTED 100
[2017-01-21 11:06] VITALS: BP 127/67; PULSE 82; TEMP 97.5
[2017-01-21 17:17] VITALS: BP 128/60; PULSE 88; TEMP 97.7
[2017-01-21 19:12] VITALS: BP 116/59; PULSE 94; TEMP 97.9
[2017-01-21 23:17] VITALS: BP 147/109; PULSE 88; TEMP 97.8
[2017-01-22 03:43] VITALS: BP 120/60; PULSE 88; TEMP 97.9
[2017-01-22 07:15] VITALS: BP 128/69; PULSE 85; TEMP 98
[2017-01-22 09:24] LABS: MEAN CELL VOLUME 91 fl (80.0-100.0); MEAN CORPUSCULAR HGB CONC 33 g/dl (33.0-37.0); MEAN PLATELET VOLUME 10.8 fl (7.4-10.4); PLATELET COUNT 216 K/mm3 (130-400); RED BLOOD COUNT 3.75 M/mm3 (4.10-5.30); REDCELL DISTRIBUTION WIDTH-CV 14.7 % (11.5-14.5); WHITE BLOOD COUNT 9.9 K/mm3 (4.8-10.8)
[2017-01-22 09:25] LABS: ADD PATHOLOGY DIFF REVIEW NO; HEMATOCRIT 34.1 % (37.0-47.0); HEMOGLOBIN 11.1 g/dl (12.5-16.0); MEAN CORPUSCULAR HEMOGLOBIN 30 pg (27.0-31.0)
[2017-01-22 09:39] LABS: CALCIUM 8.8 mg/dL (8.4-10.2); CREATININE, serum 1.07 mg/dL (0.52-1.25); POTASSIUM 3.3 mmol/L (3.4-5.0)
[2017-01-22 09:47] LABS: BAND 11 % (0-10); NEUTROPHILS 86 % (42.0-75.2); PLATELET ESTIMATE NORMAL (NORMAL); TOTAL CELLS COUNTED 100
[2017-01-22 11:15] VITALS: BP 119/68; PULSE 84; TEMP 97.9
[2017-01-22] MEDS ORDERED: ZITHROMAX500 M2 PO (13:09)
[2017-01-22] MEDS ORDERED: DOXYCYCLINE 10100 MG PO (13:10)
[2017-01-22] MEDS ORDERED: ALDACTONE50 MG PO (13:12)
[2017-01-22] MEDS ORDERED: MUCINEX1200 MG PO (13:13)
[2017-01-22] MEDS ORDERED: PREDNISONE10 MG PO (13:22)
[2017-01-23] MEDS ORDERED: SOLU-MEDRO125 MG/21 IV (03:25)
[2017-01-23] MEDS ORDERED: K LYTE 25 MEQ25 MEQ PO (03:41)
[2017-01-23] MEDS ORDERED: ZITHROMAX500 MG/VIA IV (03:49)
[2017-01-23] MEDS ORDERED: NOVOLOG 100U100 U/M1 SQ (03:55)
[2017-01-23] MEDS ORDERED: HEPARIN SOD5000 U/ML SQ (03:58)
[2017-01-23] MEDS ORDERED: IPRATROPIUM BROM3 M1 IH (04:17)
== END 2017-01-22 15:30 ==
LOC: COL.ER 18:16 → MEDICAL 20:07
PROVIDERS: Emergency Medicine; Internal Medicine; Nurse Practitioner; Physician Assistant
DX: I25.10 Atherosclerotic heart disease of native coronary artery without angina pectoris (principal); I11.0 Hypertensive heart disease with heart failure; I50.9 Heart failure, unspecified; G20 Parkinson's disease; E03.9 Hypothyroidism, unspecified; E11.9 Type 2 diabetes mellitus without complications; I48.0 Paroxysmal atrial fibrillation; J44.9 Chronic obstructive pulmonary disease, unspecified; R56.9 Unspecified convulsions; G47.33 Obstructive sleep apnea (adult) (pediatric); Z85.3 Personal history of malignant neoplasm of breast; E44.0 Moderate protein-calorie malnutrition; E87.6 Hypokalemia; E87.8 Other disorders of electrolyte and fluid balance, not elsewhere classified; Z95.0 Presence of cardiac pacemaker; Z79.84 Long term (current) use of oral hypoglycemic drugs; Z90.11 Acquired absence of right breast and nipple; Z79.01 Long term (current) use of anticoagulants; Z82.49 Family history of ischemic heart disease and other diseases of the circulatory system; Z80.42 Family history of malignant neoplasm of prostate; Z80.3 Family history of malignant neoplasm of breast; Z80.1 Family history of malignant neoplasm of trachea, bronchus and lung; Z82.5 Family history of asthma and other chronic lower respiratory diseases
CPT/HCPCS: G0378; G8978-GP; G8979-GP; G8987-GO; G8988-GO; J0456; J0696; J1644; J1815; J2543; J2930; J3370; J7030; J7040; J7050; J7512

== ENCOUNTER 2017-01-22 15:03 | Inpatient (IN) | payer MEDICARE, OTHER ==
[~2017-01-22] VITALS: Ht 144.8 cm; Wt 55.7 kg
[~2017-01-22 15:03] MED LIST changes: +ALDACTONE50 MG PO; +MUCINEX1200 MG PO; +ZITHROMAX500 M2 PO
[2017-01-22 15:29] VITALS: BP 127/64; PULSE 92; TEMP 98
[2017-01-23] MEDS ORDERED: SOLU-MEDRO125 MG/21 IV (03:25)
[2017-01-23] MEDS ORDERED: K LYTE 25 MEQ25 MEQ PO (03:41)
[2017-01-23] MEDS ORDERED: ZITHROMAX500 MG/VIA IV (03:49)
[2017-01-23 03:50] VITALS: BP 117/62; PULSE 83; TEMP 98.2
[2017-01-23] MEDS ORDERED: NOVOLOG 100U100 U/M1 SQ (03:55)
[2017-01-23] MEDS ORDERED: HEPARIN SOD5000 U/ML SQ (03:58)
[2017-01-23] MEDS ORDERED: IPRATROPIUM BROM3 M1 IH (04:17)
[2017-01-23 06:34] VITALS: BP 117/62; PULSE 83; TEMP 98.2
[2017-01-23 17:24] VITALS: BP 103/56; PULSE 89; TEMP 97.4
[2017-01-23 17:49] VITALS: BP 117/80
[2017-01-24 06:13] VITALS: BP 137/70; PULSE 95; TEMP 97.8
[2017-01-24 10:19] LABS: MAGNESIUM 1.1 mg/dL (1.6-2.3); POTASSIUM 4.4 mmol/L (3.4-5.0)
[2017-01-24 18:14] VITALS: BP 133/69; PULSE 101; TEMP 98.6
[2017-01-25 07:05] VITALS: BP 136/69; PULSE 83; TEMP 98.4
[2017-01-25 17:09] VITALS: BP 119/77; PULSE 90; TEMP 98.4
[2017-01-26 06:04] VITALS: BP 127/75; PULSE 79; TEMP 98.2
[2017-01-26 15:55] VITALS: BP 116/74; PULSE 100; TEMP 97.6
[2017-01-27 05:47] VITALS: BP 116/69; PULSE 87; TEMP 98.1
[2017-01-27 18:31] VITALS: BP 121/7; PULSE 97; TEMP 97.5
[2017-01-28 04:19] VITALS: BP 125/66; PULSE 88; TEMP 97.5
[2017-01-28 16:10] VITALS: BP 131/73; PULSE 97; TEMP 97.6
[2017-01-29 06:24] VITALS: BP 117/67; PULSE 70; TEMP 97.6
[2017-01-29 08:41] LABS: CALCIUM 9.6 mg/dL (8.4-10.2); CREATININE, serum 0.99 mg/dL (0.52-1.25); MAGNESIUM 1.2 mg/dL (1.6-2.3); POTASSIUM 4.6 mmol/L (3.4-5.0)
[2017-01-29 16:46] VITALS: BP 141/73; PULSE 90; TEMP 97.3
[2017-01-30 06:40] VITALS: BP 138/72; PULSE 82; TEMP 97.7
[2017-01-30 17:39] VITALS: BP 109/61; PULSE 92; TEMP 98
[2017-01-31 06:28] LABS: CALCIUM 9.5 mg/dL (8.4-10.2); CREATININE, serum 0.95 mg/dL (0.52-1.25); MAGNESIUM 1.5 mg/dL (1.6-2.3); POTASSIUM 4.4 mmol/L (3.4-5.0)
[2017-01-31 06:50] VITALS: BP 116/62; PULSE 92; TEMP 98.1
[2017-01-31] MEDS ORDERED: K-TAB20 PO (11:07)
[2017-01-31] MEDS ORDERED: MAG-OX 400400 MG/TAB PO (11:34)
[2017-01-31] MEDS ORDERED: ZOFRAN 4MG T4 MG/TAB PO (11:34)
[2017-01-31 15:18] VITALS: BP 91/67; PULSE 100; TEMP 97.8
[2017-02-01 05:10] VITALS: BP 104/53; PULSE 94; TEMP 98.3
== END 2017-02-01 12:50 | disposition home health service (06) | DRG 948 ==
PROVIDERS: Internal Medicine
DX: R53.81 Other malaise (principal); J44.1 Chronic obstructive pulmonary disease with (acute) exacerbation; N17.9 Acute kidney failure, unspecified; I50.32 Chronic diastolic (congestive) heart failure; E44.0 Moderate protein-calorie malnutrition; E87.6 Hypokalemia; G20 Parkinson's disease; I48.0 Paroxysmal atrial fibrillation; E11.9 Type 2 diabetes mellitus without complications; I11.0 Hypertensive heart disease with heart failure; E83.42 Hypomagnesemia
CPT/HCPCS: 99222-AI; 99232-AI; 99233-AI; 99239; J1650; J1815; J3475; J7512

== ENCOUNTER 2017-04-20 13:35 | Inpatient (IN) | payer MEDICARE ==
[~2017-04-20] VITALS: Ht 144.8 cm; Wt 54.2 kg
[~2017-04-20 13:35] MED LIST changes: +HEPARIN SOD5000 U/ML SQ; +IPRATROPIUM BROM3 M1 IH; +K LYTE 25 MEQ25 MEQ PO; +MAG-OX 400400 MG/TAB PO; +NOVOLOG 100U100 U/M1 SQ; +SOLU-MEDRO125 MG/21 IV; +ZITHROMAX500 MG/VIA IV
[2017-04-20 14:29] LABS: BASO # 0.1 (0.0-0.2); BASO % 0.6 % (0.0-2.0); EOS % 0.2 % (0-4.0); LYMPH % 5.8 % (20.0-51.0); MEAN CELL VOLUME 94 fl (80.0-100.0); MEAN CORPUSCULAR HGB CONC 33 g/dl (33.0-37.0); MEAN PLATELET VOLUME 10.2 fl (7.4-10.4); MONO # 0.7 (0.1-0.6); MONO % 3.9 % (1.7-9.3); PLATELET COUNT 223 K/mm3 (130-400); RED BLOOD COUNT 3.63 M/mm3 (4.10-5.30); REDCELL DISTRIBUTION WIDTH-CV 14.2 % (11.5-14.5)
[2017-04-20 14:32] LABS: HEMATOCRIT 34.1 % (37.0-47.0); HEMOGLOBIN 11.1 g/dl (12.5-16.0); MEAN CORPUSCULAR HEMOGLOBIN 31 pg (27.0-31.0)
[2017-04-20 14:45] LABS: ALANINE AMINOTRANSFERASE 18 U/L (9-52); ALBUMIN 4.6 gm/dL (3.5-5.0); ALKALINE PHOSPHATASE 92 U/L (50-136); ANION GAP 10 mmol/L (7-16); AST,SGOT 43 U/L (15-37); BILIRUBIN,TOTAL 0.7 mg/dL (0.0-1.0); BLOOD UREA NITROGEN 43 mg/dL (7-17); C-REACTIVE PROTEIN 4.6 mg/dL (0.0-0.9); CALCIUM 10.2 mg/dL (8.4-10.2); CARBON DIOXIDE 28 mmol/L (22-30); CHLORIDE 97 mmol/L (98-107); CREATININE, serum 1.49 mg/dL (0.52-1.25); GLUCOSE 144 mg/dL (74-106); POTASSIUM 4.2 mmol/L (3.4-5.0); SODIUM 135 mmol/L (137-145)
[2017-04-20] MEDS ORDERED: BRILINTA60 MG PO (14:50)
[2017-04-20 14:54] LABS: TROPONIN-I < 0.012 ng/mL (0.000-0.034)
[2017-04-20 14:55] LABS: INR 1.1 (0.8-3.0); PROTHROMBIN TIME 12.3 SECONDS (9.7-12.8)
[2017-04-20 14:58] LABS: PARTIAL THROMBOPLASTIN TIME 28.1 SECONDS (26.0-37.0)
[2017-04-20 15:06] LABS: COLLECTION METHOD CATHETER
[2017-04-20 15:13] LABS: MUCOUS Present /lpf; PH 7 (5-8); SQUAMOUS EPITHELIAL 0-2 /hpf; URINE APPEARANCE Clear; URINE BACTERIA None Seen /hpf; URINE BILIRUBIN Negative (NEGATIVE); URINE BLOOD Negative (NEGATIVE); URINE COLOR Amber; URINE GLUCOSE Negative (NEGATIVE); URINE KETONE Trace (NEGATIVE); URINE LEUKOCYTE ESTERASE 2+ (NEGATIVE); URINE NITRATE Negative (NEGATIVE); URINE PROTEIN(semi-quant) Negative (NEGATIVE); URINE RBC 0-2 /hpf; URINE UROBILINOGEN Negative (NEGATIVE)
[2017-04-20 17:00] VITALS: BP 103/58; PULSE 73; TEMP 97
[2017-04-20 17:16] LABS: ARTERIAL BLD GAS O2 SATURATION 94.9 % (92-100); ARTERIAL BLD GAS TCO2 CT 29.1; ARTERIAL BLOOD GAS BASE EXCESS 3.9 (-2-2); ARTERIAL BLOOD GAS HCO3 27.9 meq/L (22-26); ARTERIAL BLOOD GAS PCO2 39.6 mmHg (35-45); ARTERIAL BLOOD GAS PO2 78.2 mmHg (80-100); ARTERIAL BLOOD GAS pH 7.47 (7.35-7.45)
[2017-04-20 20:06] VITALS: BP 94/53; PULSE 67; TEMP 98.4
[2017-04-20 20:50] VITALS: BP 81/41; PULSE 90
[2017-04-20 20:55] VITALS: BP 81/51; PULSE 76
[2017-04-20 21:59] VITALS: BP 154/62; PULSE 75
[2017-04-20 23:59] VITALS: O2SAT 96
[2017-04-21] VITALS (1144 sets, daily range): BP systolic 108–155; BP diastolic 55–72; PULSE 67–86; TEMP 96.4–99; O2SAT 92–100
[2017-04-21 05:20] LABS: ARTERIAL BLD GAS O2 SATURATION 96.7 % (92-100); ARTERIAL BLD GAS TCO2 CT 24.3; ARTERIAL BLOOD GAS BASE EXCESS -1.3 (-2-2); ARTERIAL BLOOD GAS HCO3 23.1 meq/L (22-26); ARTERIAL BLOOD GAS PCO2 37.4 mmHg (35-45); ARTERIAL BLOOD GAS PO2 95.8 mmHg (80-100); ARTERIAL BLOOD GAS pH 7.41 (7.35-7.45)
[2017-04-21 05:55] LABS: BASO % 0.2 % (0.0-2.0); EOS % 0.1 % (0-4.0); GRAN # 13.9 (1.4-6.5); GRAN % 92.5 % (42.2-75.2); LYMPH # 0.8 (1.2-3.4); MEAN CELL VOLUME 95 fl (80.0-100.0); MEAN CORPUSCULAR HGB CONC 32 g/dl (33.0-37.0); MEAN PLATELET VOLUME 10.2 fl (7.4-10.4); MONO # 0.3 (0.1-0.6); MONO % 1.7 % (1.7-9.3); PLATELET COUNT 206 K/mm3 (130-400); RED BLOOD COUNT 3.03 M/mm3 (4.10-5.30); REDCELL DISTRIBUTION WIDTH-CV 14.5 % (11.5-14.5)
[2017-04-21 06:03] LABS: INR 1.1 (0.8-3.0); PROTHROMBIN TIME 12.4 SECONDS (9.7-12.8)
[2017-04-21 06:09] LABS: ALBUMIN 3.5 gm/dL (3.5-5.0); BILIRUBIN,TOTAL 0.5 mg/dL (0.0-1.0); CALCIUM 8.5 mg/dL (8.4-10.2); CREATININE, serum 0.94 mg/dL (0.52-1.25); MAGNESIUM 2.2 mg/dL (1.6-2.3); POTASSIUM 3.2 mmol/L (3.4-5.0); TOTAL PROTEIN 6.7 gm/dL (6.4-8.2)
[2017-04-21 06:13] LABS: HEMATOCRIT 28.8 % (37.0-47.0); HEMOGLOBIN 9.3 g/dl (12.5-16.0); MEAN CORPUSCULAR HEMOGLOBIN 31 pg (27.0-31.0)
[2017-04-21 07:11] LABS: TSH w REFLEX 1.99 uIU/mL (0.465-4.680)
[2017-04-22] VITALS (565 sets, daily range): BP systolic 108–142; BP diastolic 58–68; PULSE 65–75; TEMP 97–98.4; O2SAT 92–100
[2017-04-22 06:09] LABS: BASO % 0.1 % (0.0-2.0); EOS % 0.2 % (0-4.0); GRAN # 7.2 (1.4-6.5); GRAN % 87.6 % (42.2-75.2); LYMPH # 0.6 (1.2-3.4); LYMPH % 7.3 % (20.0-51.0); MEAN CELL VOLUME 95 fl (80.0-100.0); MEAN CORPUSCULAR HGB CONC 32 g/dl (33.0-37.0); MEAN PLATELET VOLUME 10.5 fl (7.4-10.4); MONO # 0.3 (0.1-0.6); MONO % 4.2 % (1.7-9.3); PLATELET COUNT 150 K/mm3 (130-400); RED BLOOD COUNT 2.53 M/mm3 (4.10-5.30); REDCELL DISTRIBUTION WIDTH-CV 14.5 % (11.5-14.5)
[2017-04-22 06:16] LABS: HEMATOCRIT 24.1 % (37.0-47.0); HEMOGLOBIN 7.7 g/dl (12.5-16.0); INR 1.1 (0.8-3.0); MEAN CORPUSCULAR HEMOGLOBIN 30 pg (27.0-31.0); PROTHROMBIN TIME 12.5 SECONDS (9.7-12.8)
[2017-04-22 06:23] LABS: BILIRUBIN,TOTAL 0.4 mg/dL (0.0-1.0); CALCIUM 8.8 mg/dL (8.4-10.2); CREATININE, serum 0.82 mg/dL (0.52-1.25); POTASSIUM 3.8 mmol/L (3.4-5.0); TOTAL PROTEIN 5.9 gm/dL (6.4-8.2)
[2017-04-22 06:29] LABS: PHOSPHOROUS 1.9 mg/dL (2.5-4.5)
[2017-04-23 00:13] VITALS: BP 108/50; PULSE 71; TEMP 97.8
[2017-04-23 03:42] VITALS: BP 116/55; PULSE 73; TEMP 98.1
[2017-04-23 07:19] LABS: GRAN # 5.9 (1.4-6.5); GRAN % 83.8 % (42.2-75.2); LYMPH # 0.7 (1.2-3.4); LYMPH % 10.3 % (20.0-51.0); MEAN CELL VOLUME 93 fl (80.0-100.0); MEAN CORPUSCULAR HGB CONC 33 g/dl (33.0-37.0); MEAN PLATELET VOLUME 10.8 fl (7.4-10.4); MONO # 0.3 (0.1-0.6); MONO % 4.9 % (1.7-9.3); PLATELET COUNT 184 K/mm3 (130-400); RED BLOOD COUNT 2.74 M/mm3 (4.10-5.30); REDCELL DISTRIBUTION WIDTH-CV 14.6 % (11.5-14.5)
[2017-04-23 07:22] LABS: INR 1.1 (0.8-3.0)
[2017-04-23 07:23] LABS: HEMATOCRIT 25.6 % (37.0-47.0); HEMOGLOBIN 8.4 g/dl (12.5-16.0); MEAN CORPUSCULAR HEMOGLOBIN 31 pg (27.0-31.0)
[2017-04-23 07:36] LABS: ALBUMIN 3.2 gm/dL (3.5-5.0); BILIRUBIN,TOTAL 0.4 mg/dL (0.0-1.0); CALCIUM 8.7 mg/dL (8.4-10.2); CREATININE, serum 0.83 mg/dL (0.52-1.25); MAGNESIUM 1.8 mg/dL (1.6-2.3); PHOSPHOROUS 3.4 mg/dL (2.5-4.5); TOTAL PROTEIN 6.1 gm/dL (6.4-8.2)
[2017-04-23 07:37] VITALS: BP 120/55; PULSE 80; TEMP 97.6
[2017-04-23 07:48] LABS: POTASSIUM 2.5 mmol/L (3.4-5.0)
[2017-04-23 11:28] VITALS: BP 124/68; PULSE 79; TEMP 97.6
[2017-04-23 16:27] VITALS: BP 141/72; PULSE 78; TEMP 97.6
[2017-04-23 20:45] VITALS: BP 116/75; PULSE 74; TEMP 98
[2017-04-24 00:08] VITALS: BP 121/80; PULSE 98; TEMP 97.9
[2017-04-24 05:01] VITALS: BP 136/74; PULSE 74; TEMP 97.6
[2017-04-24 07:28] LABS: BASO % 0.4 % (0.0-2.0); GRAN % 80.3 % (42.2-75.2); LYMPH # 0.6 (1.2-3.4); LYMPH % 11.3 % (20.0-51.0); MEAN CELL VOLUME 93 fl (80.0-100.0); MEAN CORPUSCULAR HGB CONC 33 g/dl (33.0-37.0); MEAN PLATELET VOLUME 10.5 fl (7.4-10.4); MONO # 0.3 (0.1-0.6); MONO % 6.6 % (1.7-9.3); PLATELET COUNT 212 K/mm3 (130-400); RED BLOOD COUNT 2.94 M/mm3 (4.10-5.30); REDCELL DISTRIBUTION WIDTH-CV 14.6 % (11.5-14.5)
[2017-04-24 07:39] LABS: CALCIUM 8.8 mg/dL (8.4-10.2); CREATININE, serum 0.8 mg/dL (0.52-1.25); MAGNESIUM 1.9 mg/dL (1.6-2.3)
[2017-04-24 07:48] LABS: HEMATOCRIT 27.3 % (37.0-47.0); MEAN CORPUSCULAR HEMOGLOBIN 31 pg (27.0-31.0)
[2017-04-24 07:56] LABS: POTASSIUM 2.8 mmol/L (3.4-5.0)
[2017-04-24 08:24] VITALS: BP 110/55; PULSE 77; TEMP 97.6
[2017-04-24 11:55] VITALS: BP 125/58; PULSE 74; TEMP 97.6
[2017-04-24 16:07] VITALS: BP 136/63; PULSE 88; TEMP 98
[2017-04-24 20:24] VITALS: BP 136/65; PULSE 89; TEMP 98.4
[2017-04-25 00:18] VITALS: BP 102/49; PULSE 82; TEMP 98.3
[2017-04-25 04:15] VITALS: BP 103/51; PULSE 75; TEMP 97.6
[2017-04-25 06:52] LABS: CALCIUM 8.7 mg/dL (8.4-10.2); CREATININE, serum 1.04 mg/dL (0.52-1.25); MAGNESIUM 2.1 mg/dL (1.6-2.3)
[2017-04-25 08:14] VITALS: BP 103/51; PULSE 74; TEMP 97.8
[2017-04-25 11:23] VITALS: BP 100/53; PULSE 84; TEMP 97.6
[2017-04-25] MEDS ORDERED: BACTRIM DS 8001 TAB PO (11:40)
[2017-04-25] MEDS ORDERED: LASIX 80MG TABL80 MG PO (11:41)
== END 2017-04-25 15:26 | disposition home health service (06) | DRG 871 ==
LOC: COL.ER 13:35 → ICU 15:47 → MEDICAL 04-22 12:35
PROVIDERS: Emergency Medicine; Internal Medicine; Physician Assistant
DX: A41.89 Other specified sepsis (principal); R65.21 Severe sepsis with septic shock; N17.9 Acute kidney failure, unspecified; N39.0 Urinary tract infection, site not specified; I50.32 Chronic diastolic (congestive) heart failure; Z66 Do not resuscitate; E87.1 Hypo-osmolality and hyponatremia; J98.11 Atelectasis; I11.0 Hypertensive heart disease with heart failure; J44.9 Chronic obstructive pulmonary disease, unspecified; I48.0 Paroxysmal atrial fibrillation; G20 Parkinson's disease; E11.9 Type 2 diabetes mellitus without complications; Z95.0 Presence of cardiac pacemaker; Z85.3 Personal history of malignant neoplasm of breast; I25.10 Atherosclerotic heart disease of native coronary artery without angina pectoris; B96.89 Other specified bacterial agents as the cause of diseases classified elsewhere; E87.6 Hypokalemia
CPT/HCPCS: 99223; 99231-AI; 99232-AI; 99233-AI; 99239; A4315; A9284; C1751; J0696; J1644; J1720; J1815; J1940; J2543; J3475; J3480; J7030; J7050; J7060

== ENCOUNTER 2017-06-27 08:07 | Emergency (ER) | payer MEDICARE, OTHER ==
[2008-08-13 20:09] VITALS: BP 122/80
[~2017-06-27] VITALS: Ht 144.8 cm; Wt 59.1 kg
[~2017-06-27 08:07] MED LIST changes: +BRILINTA60 MG PO
[2017-06-27 08:08] VITALS: TEMP 97.7
[2017-06-27 08:48] LABS: BASO # 0.1 (0.0-0.2); BASO % 1.4 % (0.0-2.0); EOS # 1.3 (0.0-0.7); EOS % 18.6 % (0-4.0); GRAN # 3.9 (1.4-6.5); GRAN % 53.6 % (42.2-75.2); LYMPH # 1.4 (1.2-3.4); LYMPH % 19.6 % (20.0-51.0); MEAN CELL VOLUME 97 fl (80.0-100.0); MEAN CORPUSCULAR HGB CONC 32 g/dl (33.0-37.0); MEAN PLATELET VOLUME 10.5 fl (7.4-10.4); MONO # 0.5 (0.1-0.6); MONO % 6.7 % (1.7-9.3); PLATELET COUNT 200 K/mm3 (130-400); RED BLOOD COUNT 3.01 M/mm3 (4.10-5.30); REDCELL DISTRIBUTION WIDTH-CV 14.1 % (11.5-14.5)
[2017-06-27 08:55] LABS: ALBUMIN 4.2 gm/dL (3.5-5.0); BILIRUBIN,TOTAL 0.3 mg/dL (0.0-1.0); CALCIUM 9.2 mg/dL (8.4-10.2); CREATININE, serum 0.96 mg/dL (0.52-1.25); HEMATOCRIT 29.1 % (37.0-47.0); HEMOGLOBIN 9.4 g/dl (12.5-16.0); MEAN CORPUSCULAR HEMOGLOBIN 31 pg (27.0-31.0); POTASSIUM 3.9 mmol/L (3.4-5.0); TOTAL PROTEIN 7.4 gm/dL (6.4-8.2)
[2017-06-27 08:55] LABS: COLLECTION METHOD CATHETER
[2017-06-27 09:04] LABS: PH 7 (5-8); SQUAMOUS EPITHELIAL 0-2 /hpf; URINE APPEARANCE Clear; URINE BACTERIA None Seen /hpf; URINE BILIRUBIN Negative (NEGATIVE); URINE BLOOD Negative (NEGATIVE); URINE COLOR Amber; URINE GLUCOSE Negative (NEGATIVE); URINE KETONE Trace (NEGATIVE); URINE LEUKOCYTE ESTERASE Negative (NEGATIVE); URINE NITRATE Negative (NEGATIVE); URINE PROTEIN(semi-quant) 1+ (NEGATIVE); URINE RBC 0-2 /hpf; URINE UROBILINOGEN Negative (NEGATIVE)
[2017-06-27 09:31] VITALS: BP 117/66; PULSE 71
== END 2017-06-27 09:32 | disposition home or self-care (01) ==
LOC: COL.ER 08:07
PROVIDERS: Physician Assistant
DX: S40.011A Contusion of right shoulder, initial encounter (principal); I25.10 Atherosclerotic heart disease of native coronary artery without angina pectoris; E11.9 Type 2 diabetes mellitus without complications; J44.9 Chronic obstructive pulmonary disease, unspecified; E03.9 Hypothyroidism, unspecified; G20 Parkinson's disease; Z79.02 Long term (current) use of antithrombotics/antiplatelets; Z79.51 Long term (current) use of inhaled steroids; Z79.84 Long term (current) use of oral hypoglycemic drugs; W01.0XXA Fall on same level from slipping, tripping and stumbling without subsequent striking against object, initial encounter; Y92.009 Unspecified place in unspecified non-institutional (private) residence as the place of occurrence of the external cause

== ENCOUNTER 2017-08-22 09:34 | Day surgery (SDC) | payer MEDICARE, OTHER ==
[2008-08-13 20:09] VITALS: BP 122/80
[~2017-08-22] VITALS: Ht 144.8 cm; Wt 53.6 kg
[~2017-08-22 09:34] MED LIST changes: +FERROUSAL325 MG PO
[2017-08-22 11:01] VITALS: BP 115/59; PULSE 60
[2017-08-22 12:10] VITALS: BP 122/73; PULSE 61; TEMP 96.9
[2017-08-22 12:25] VITALS: BP 108/62; PULSE 67
[2017-08-22 12:40] VITALS: BP 132/77; PULSE 62
== END 2017-08-22 12:57 | disposition home or self-care (01) ==
LOC: SDCO 09:34
DX: Z86.010 Personal history of colon polyps (principal); K63.5 Polyp of colon; K22.2 Esophageal obstruction; K22.0 Achalasia of cardia; K44.9 Diaphragmatic hernia without obstruction or gangrene; R13.10 Dysphagia, unspecified; K21.9 Gastro-esophageal reflux disease without esophagitis; Z88.8 Allergy status to other drugs, medicaments and biological substances; Z79.84 Long term (current) use of oral hypoglycemic drugs; E11.9 Type 2 diabetes mellitus without complications; I10 Essential (primary) hypertension; Z85.3 Personal history of malignant neoplasm of breast; Z90.11 Acquired absence of right breast and nipple
CPT/HCPCS: C1726; J0585; J2250; J3010; J7030

== ENCOUNTER 2017-09-01 08:49 | Observation (INO) | payer MEDICARE, OTHER ==
[2017-09-01] VITALS (605 sets, daily range): BP systolic 114–130; BP diastolic 62–72; PULSE 65–94; TEMP 97.5–97.8; O2SAT 55–100
[~2017-09-01] VITALS: Ht 144.8 cm; Wt 55.8 kg
[2017-09-01] MEDS ORDERED: LASIX 40MG TABL40 MG PO (09:13)
[2017-09-01 09:52] LABS: BASO # 0.1 (0.0-0.2); BASO % 1.5 % (0.0-2.0); EOS # 0.6 (0.0-0.7); EOS % 9.6 % (0-4.0); GRAN # 3.5 (1.4-6.5); GRAN % 57.6 % (42.2-75.2); LYMPH # 1.4 (1.2-3.4); LYMPH % 23.4 % (20.0-51.0); MEAN CELL VOLUME 96 fl (80.0-100.0); MEAN CORPUSCULAR HGB CONC 33 g/dl (33.0-37.0); MEAN PLATELET VOLUME 9.6 fl (7.4-10.4); MONO # 0.5 (0.1-0.6); MONO % 7.7 % (1.7-9.3); PLATELET COUNT 189 K/mm3 (130-400); RED BLOOD COUNT 3.07 M/mm3 (4.10-5.30)
[2017-09-01 09:53] LABS: HEMATOCRIT 29.5 % (37.0-47.0); HEMOGLOBIN 9.7 g/dl (12.5-16.0); MEAN CORPUSCULAR HEMOGLOBIN 32 pg (27.0-31.0)
[2017-09-01 10:06] LABS: ALANINE AMINOTRANSFERASE 14 U/L (9-52); ALBUMIN 4.1 gm/dL (3.5-5.0); ALKALINE PHOSPHATASE 79 U/L (50-136); ANION GAP 11 mmol/L (7-16); AST,SGOT 43 U/L (15-37); BILIRUBIN,TOTAL 0.3 mg/dL (0.0-1.0); BLOOD UREA NITROGEN 26 mg/dL (7-17); CALCIUM 10.1 mg/dL (8.4-10.2); CARBON DIOXIDE 31 mmol/L (22-30); CHLORIDE 101 mmol/L (98-107); CREATININE, serum 0.91 mg/dL (0.52-1.25); GLUCOSE 100 mg/dL (74-106); POTASSIUM 3.8 mmol/L (3.4-5.0); SODIUM 143 mmol/L (137-145); TOTAL PROTEIN 8.2 gm/dL (6.4-8.2)
[2017-09-01 10:07] LABS: C-REACTIVE PROTEIN < 0.5 mg/dL (0.0-0.9)
[2017-09-01 10:15] LABS: TROPONIN-I < 0.012 ng/mL (0.000-0.034)
[2017-09-01 11:13] LABS: COLLECTION METHOD CATHETER
[2017-09-01 11:23] LABS: PH 7 (5-8); SQUAMOUS EPITHELIAL None Seen /hpf; URINE APPEARANCE Clear; URINE BACTERIA None Seen /hpf; URINE BILIRUBIN Negative (NEGATIVE); URINE BLOOD Negative (NEGATIVE); URINE COLOR Yellow; URINE GLUCOSE Negative (NEGATIVE); URINE KETONE Negative (NEGATIVE); URINE LEUKOCYTE ESTERASE Negative (NEGATIVE); URINE NITRATE Negative (NEGATIVE); URINE PROTEIN(semi-quant) Negative (NEGATIVE); URINE RBC 0-2 /hpf; URINE UROBILINOGEN Negative (NEGATIVE)
[2017-09-02] VITALS (985 sets, daily range): BP systolic 106–133; BP diastolic 57–84; PULSE 65–84; TEMP 97.5–98; O2SAT 81–100
[2017-09-02 06:00] LABS: BASO # 0.1 (0.0-0.2); BASO % 0.9 % (0.0-2.0); EOS # 0.7 (0.0-0.7); EOS % 13.7 % (0-4.0); GRAN # 2.4 (1.4-6.5); LYMPH # 1.6 (1.2-3.4); LYMPH % 29.9 % (20.0-51.0); MEAN CELL VOLUME 96 fl (80.0-100.0); MEAN CORPUSCULAR HGB CONC 32 g/dl (33.0-37.0); MEAN PLATELET VOLUME 10.1 fl (7.4-10.4); MONO # 0.6 (0.1-0.6); MONO % 10.3 % (1.7-9.3); PLATELET COUNT 164 K/mm3 (130-400); RED BLOOD COUNT 2.67 M/mm3 (4.10-5.30); REDCELL DISTRIBUTION WIDTH-CV 14.1 % (11.5-14.5)
[2017-09-02 06:07] LABS: HEMATOCRIT 25.6 % (37.0-47.0); HEMOGLOBIN 8.3 g/dl (12.5-16.0); MEAN CORPUSCULAR HEMOGLOBIN 31 pg (27.0-31.0)
[2017-09-02 06:20] LABS: CALCIUM 8.2 mg/dL (8.4-10.2); CREATININE, serum 0.89 mg/dL (0.52-1.25); POTASSIUM 3.7 mmol/L (3.4-5.0)
[2017-09-02 16:31] LABS: FOLATE (FOLIC ACID) 11.7 ng/mL (7.0-31.4)
[2017-09-03 00:09] VITALS: BP 104/48; PULSE 63; TEMP 97.6
[2017-09-03 04:12] VITALS: BP 104/56; PULSE 73; TEMP 98
[2017-09-03 06:40] LABS: BASO # 0.1 (0.0-0.2); BASO % 1.2 % (0.0-2.0); EOS # 0.7 (0.0-0.7); EOS % 12.4 % (0-4.0); GRAN # 2.6 (1.4-6.5); GRAN % 46.2 % (42.2-75.2); LYMPH # 1.8 (1.2-3.4); LYMPH % 31.3 % (20.0-51.0); MEAN CELL VOLUME 93 fl (80.0-100.0); MEAN CORPUSCULAR HGB CONC 34 g/dl (33.0-37.0); MEAN PLATELET VOLUME 10.3 fl (7.4-10.4); MONO # 0.5 (0.1-0.6); MONO % 8.7 % (1.7-9.3); PLATELET COUNT 161 K/mm3 (130-400); RED BLOOD COUNT 2.72 M/mm3 (4.10-5.30); REDCELL DISTRIBUTION WIDTH-CV 13.9 % (11.5-14.5)
[2017-09-03 06:42] LABS: HEMATOCRIT 25.4 % (37.0-47.0); HEMOGLOBIN 8.5 g/dl (12.5-16.0); MEAN CORPUSCULAR HEMOGLOBIN 31 pg (27.0-31.0)
[2017-09-03 06:47] LABS: CALCIUM 8.6 mg/dL (8.4-10.2); CREATININE, serum 0.7 mg/dL (0.52-1.25); POTASSIUM 3.7 mmol/L (3.4-5.0)
[2017-09-03 07:25] VITALS: BP 137/62; PULSE 73; TEMP 97.6
[2017-09-03 12:48] VITALS: BP 119/48; PULSE 81; TEMP 98
[2017-09-03] MEDS ORDERED: B-121000 MCG PO (13:02)
== END 2017-09-03 14:20 | disposition home health service (06) ==
LOC: COL.ER 08:49 → ICU 11:49 → MEDICAL 11:49 → ICU 11:49 → MEDICAL 09-02 18:33
PROVIDERS: Emergency Medicine; Internal Medicine
DX: R53.1 Weakness (principal); E87.2 Acidosis; E11.9 Type 2 diabetes mellitus without complications; J44.9 Chronic obstructive pulmonary disease, unspecified; I11.0 Hypertensive heart disease with heart failure; I50.9 Heart failure, unspecified; D64.9 Anemia, unspecified; I25.10 Atherosclerotic heart disease of native coronary artery without angina pectoris; I48.91 Unspecified atrial fibrillation; G20 Parkinson's disease; E03.9 Hypothyroidism, unspecified; G47.33 Obstructive sleep apnea (adult) (pediatric); G61.0 Guillain-Barre syndrome; Z79.84 Long term (current) use of oral hypoglycemic drugs; Z79.02 Long term (current) use of antithrombotics/antiplatelets; Z95.5 Presence of coronary angioplasty implant and graft; Z95.0 Presence of cardiac pacemaker; Z90.11 Acquired absence of right breast and nipple; Z85.3 Personal history of malignant neoplasm of breast; Z82.49 Family history of ischemic heart disease and other diseases of the circulatory system; Z80.3 Family history of malignant neoplasm of breast; Z80.1 Family history of malignant neoplasm of trachea, bronchus and lung; Z80.42 Family history of malignant neoplasm of prostate
CPT/HCPCS: 99223-AI; 99232-AI; G0378; G8978-GP; G8979-GP; G8987-GO; G8988-GO; J1650; J1956; J2543; J7030

== ENCOUNTER 2017-10-20 00:36 | Inpatient (IN) | payer MEDICARE, OTHER ==
[2017-10-20] VITALS (10 sets, daily range): BP systolic 94–126; BP diastolic 43–72; PULSE 75–88; TEMP 97.4–98.6
[~2017-10-20] VITALS: Ht 144.8 cm; Wt 53.1 kg
[~2017-10-20 00:36] MED LIST changes: +B-121000 MCG PO; +PROTONIX40 MG/Pack PO; +VITAMIND3 5000 PO
[2017-10-20 01:22] LABS: BASO % 0.5 % (0.0-2.0); EOS # 0.1 (0.0-0.7); EOS % 1.9 % (0-4.0); GRAN # 4.4 (1.4-6.5); GRAN % 67.9 % (42.2-75.2); HEMATOCRIT 23.8 % (37.0-47.0); HEMOGLOBIN 7.9 g/dl (12.5-16.0); LYMPH # 1.4 (1.2-3.4); LYMPH % 21.6 % (20.0-51.0); MEAN CELL VOLUME 93 fl (80.0-100.0); MEAN CORPUSCULAR HEMOGLOBIN 31 pg (27.0-31.0); MEAN CORPUSCULAR HGB CONC 33 g/dl (33.0-37.0); MEAN PLATELET VOLUME 9.4 fl (7.4-10.4); MONO # 0.5 (0.1-0.6); MONO % 7.9 % (1.7-9.3); PLATELET COUNT 225 K/mm3 (130-400); RED BLOOD COUNT 2.57 M/mm3 (4.10-5.30); REDCELL DISTRIBUTION WIDTH-CV 15.7 % (11.5-14.5)
[2017-10-20 01:33] LABS: ALANINE AMINOTRANSFERASE 13 U/L (9-52); ALBUMIN 3.4 gm/dL (3.5-5.0); ALKALINE PHOSPHATASE 95 U/L (50-136); ANION GAP 11 mmol/L (7-16); AST,SGOT 38 U/L (15-37); BILIRUBIN,TOTAL 0.3 mg/dL (0.0-1.0); BLOOD UREA NITROGEN 26 mg/dL (7-17); CALCIUM 9.5 mg/dL (8.4-10.2); CARBON DIOXIDE 30 mmol/L (22-30); CHLORIDE 87 mmol/L (98-107); GLUCOSE 70 mg/dL (74-106); POTASSIUM 4.1 mmol/L (3.4-5.0); SODIUM 128 mmol/L (137-145); TOTAL PROTEIN 6.8 gm/dL (6.4-8.2)
[2017-10-20 01:44] LABS: TROPONIN-I < 0.012 ng/mL (0.000-0.034)
[2017-10-20] MEDS ORDERED: LASIX 40MG TABL40 MG PO (02:26)
[2017-10-20] MEDS ORDERED: K-TAB20 PO (02:29)
[2017-10-20] MEDS ORDERED: SYSTANE BALANCE10 M1 OU (02:38)
[2017-10-20] MEDS ORDERED: MELAT3MGTAB PO (02:42)
[2017-10-20] MEDS ORDERED: FERROUS SU220 MG/5 M PO (02:43)
[2017-10-20] MEDS ORDERED: CORDARONE200 MG/TAB PO (02:44)
[2017-10-20] MEDS ORDERED: TYLENOL SU650 MG/SUP RC (05:32)
[2017-10-20] MEDS ORDERED: DULCOLAX S10 MG/SUPP RC (05:37)
[2017-10-20] MEDS ORDERED: GLUCOPHAGE500 MG/TAB PO (05:49)
[2017-10-20] MEDS ORDERED: PROTONIX 40MG T40 MG PO (05:52)
[2017-10-20] MEDS ORDERED: KLOR-CON20 MEQ PO (05:54)
[2017-10-20] MEDS ORDERED: STALEVO PO (05:59)
[2017-10-20] MEDS ORDERED: TYLENOL 325MG325 MG PO (06:02)
[2017-10-20] MEDS ORDERED: ZOFRAN ODT4 MG PO (06:03)
[2017-10-20] MEDS ORDERED: IMODIUM A-D2 MG PO (06:04)
[2017-10-20] MEDS ORDERED: ALMACONE 360 M360 ML PO (06:05)
[2017-10-20 07:12] LABS: BASO % 0.3 % (0.0-2.0); EOS # 0.1 (0.0-0.7); EOS % 2.2 % (0-4.0); GRAN # 4.6 (1.4-6.5); LYMPH # 1.3 (1.2-3.4); LYMPH % 19.8 % (20.0-51.0); MEAN CELL VOLUME 95 fl (80.0-100.0); MEAN CORPUSCULAR HGB CONC 33 g/dl (33.0-37.0); MEAN PLATELET VOLUME 9.4 fl (7.4-10.4); MONO # 0.4 (0.1-0.6); MONO % 6.2 % (1.7-9.3); PLATELET COUNT 205 K/mm3 (130-400); RED BLOOD COUNT 2.32 M/mm3 (4.10-5.30); REDCELL DISTRIBUTION WIDTH-CV 15.9 % (11.5-14.5)
[2017-10-20 07:20] LABS: BILIRUBIN,TOTAL 0.4 mg/dL (0.0-1.0); CALCIUM 8.5 mg/dL (8.4-10.2); CREATININE, serum 0.73 mg/dL (0.52-1.25); POTASSIUM 3.8 mmol/L (3.4-5.0); TOTAL PROTEIN 6.2 gm/dL (6.4-8.2)
[2017-10-20 07:26] LABS: HEMOGLOBIN 7.2 g/dl (12.5-16.0); MEAN CORPUSCULAR HEMOGLOBIN 31 pg (27.0-31.0)
[2017-10-20 11:26] LABS: COLLECTION METHOD CATHETER
[2017-10-20 11:33] LABS: PH 6 (5-8); SQUAMOUS EPITHELIAL 0-2 /hpf; URINE APPEARANCE Clear; URINE BACTERIA Rare /hpf; URINE BILIRUBIN Negative (NEGATIVE); URINE BLOOD Negative (NEGATIVE); URINE COLOR Yellow; URINE GLUCOSE Negative (NEGATIVE); URINE KETONE Negative (NEGATIVE); URINE LEUKOCYTE ESTERASE Negative (NEGATIVE); URINE NITRATE Negative (NEGATIVE); URINE PROTEIN(semi-quant) Negative (NEGATIVE); URINE RBC 0-2 /hpf; URINE UROBILINOGEN Negative (NEGATIVE)
[2017-10-20 19:29] LABS: CALCIUM 8.8 mg/dL (8.4-10.2); CREATININE, serum 0.64 mg/dL (0.52-1.25)
[2017-10-21] VITALS (11 sets, daily range): BP systolic 113–137; BP diastolic 54–84; PULSE 75–83; TEMP 98.2–98.8
[2017-10-21 10:12] LABS: BASO % 0.6 % (0.0-2.0); EOS # 0.1 (0.0-0.7); EOS % 2.2 % (0-4.0); GRAN # 3.8 (1.4-6.5); GRAN % 70.2 % (42.2-75.2); LYMPH % 18.9 % (20.0-51.0); MEAN CORPUSCULAR HGB CONC 33 g/dl (33.0-37.0); MEAN PLATELET VOLUME 9.3 fl (7.4-10.4); MONO # 0.4 (0.1-0.6); MONO % 7.5 % (1.7-9.3); PLATELET COUNT 219 K/mm3 (130-400); RED BLOOD COUNT 3.64 M/mm3 (4.10-5.30); REDCELL DISTRIBUTION WIDTH-CV 17.2 % (11.5-14.5)
[2017-10-21 10:18] LABS: HEMATOCRIT 32.7 % (37.0-47.0); HEMOGLOBIN 10.9 g/dl (12.5-16.0); MEAN CELL VOLUME 90 fl (80.0-100.0); MEAN CORPUSCULAR HEMOGLOBIN 30 pg (27.0-31.0)
[2017-10-21 10:23] LABS: CALCIUM 9.3 mg/dL (8.4-10.2); CREATININE, serum 0.62 mg/dL (0.52-1.25); MAGNESIUM 1.6 mg/dL (1.6-2.3); PHOSPHOROUS 2.9 mg/dL (2.5-4.5); POTASSIUM 3.9 mmol/L (3.4-5.0)
== END 2017-10-21 15:53 | DRG 641 ==
LOC: COL.ER 00:36 → MEDICAL 04:06
PROVIDERS: Emergency Medicine; Nurse Practitioner Family
DX: E87.1 Hypo-osmolality and hyponatremia (principal); I50.32 Chronic diastolic (congestive) heart failure; Z66 Do not resuscitate; D64.9 Anemia, unspecified; E87.8 Other disorders of electrolyte and fluid balance, not elsewhere classified; I48.0 Paroxysmal atrial fibrillation; I25.10 Atherosclerotic heart disease of native coronary artery without angina pectoris; E11.9 Type 2 diabetes mellitus without complications; J44.9 Chronic obstructive pulmonary disease, unspecified
CPT/HCPCS: 99223-AI; 99239; J1644; J7030; P9016

== ENCOUNTER → 2017-10-29 | Outpatient (REF) ==
[~2017-10-29] MED LIST changes: +FERROUS SU220 MG/5 M PO; +IMODIUM A-D2 MG PO; +KLOR-CON20 MEQ PO; +MELAT3MGTAB PO; +SYSTANE BALANCE10 M1 OU; +ZOFRAN ODT4 MG PO
[2017-10-29 13:27] LABS: MUCOUS Present /lpf; PH 7 (5-8); SQUAMOUS EPITHELIAL None Seen /hpf; URINE APPEARANCE Clear; URINE BACTERIA Rare /hpf; URINE BILIRUBIN Negative (NEGATIVE); URINE BLOOD Negative (NEGATIVE); URINE COLOR Yellow; URINE GLUCOSE Negative (NEGATIVE); URINE KETONE Negative (NEGATIVE); URINE LEUKOCYTE ESTERASE Negative (NEGATIVE); URINE NITRATE Negative (NEGATIVE); URINE PROTEIN(semi-quant) Negative (NEGATIVE); URINE RBC 0-2 /hpf; URINE UROBILINOGEN Negative (NEGATIVE)
[2017-10-29 14:39] LABS: COLLECTION METHOD CLEAN CATCH
== END ==
LOC: ZCOL.LAB 13:17
PROVIDERS: Family Medicine
DX: R35.0 Frequency of micturition (principal)

== ENCOUNTER 2017-12-10 12:37 | Day surgery (SDC) | payer MEDICARE ==
[2008-08-13 20:09] VITALS: BP 122/80
[~2017-12-10] VITALS: Ht 144.8 cm; Wt 48.4 kg
[2017-12-10 14:00] VITALS: BP 145/81; PULSE 62; TEMP 97.2
[2017-12-10] MEDS ORDERED: KEPPRA 500MG500 MG PO (14:10)
[2017-12-10] MEDS ORDERED: PEPCID 20MG TAB20 MG PO (14:12)
[2017-12-10 15:24] VITALS: BP 119/73; PULSE 60; TEMP 97
[2017-12-10 15:40] VITALS: BP 119/71; PULSE 60
[2017-12-10 15:55] VITALS: BP 153/79; PULSE 62
[2017-12-10 19:07] VITALS: BP 129/74; PULSE 60
== END 2017-12-10 16:20 | disposition home or self-care (01) ==
LOC: SDCO 12:37
DX: K22.0 Achalasia of cardia (principal); R13.10 Dysphagia, unspecified; Z90.11 Acquired absence of right breast and nipple; I25.2 Old myocardial infarction; Z95.0 Presence of cardiac pacemaker; I25.10 Atherosclerotic heart disease of native coronary artery without angina pectoris; I13.0 Hypertensive heart and chronic kidney disease with heart failure and stage 1 through stage 4 chronic kidney disease, or unspecified chronic kidney disease; E11.22 Type 2 diabetes mellitus with diabetic chronic kidney disease; N18.9 Chronic kidney disease, unspecified; I50.9 Heart failure, unspecified; J44.9 Chronic obstructive pulmonary disease, unspecified; G47.33 Obstructive sleep apnea (adult) (pediatric); K21.9 Gastro-esophageal reflux disease without esophagitis; M19.90 Unspecified osteoarthritis, unspecified site; D64.9 Anemia, unspecified; Z85.3 Personal history of malignant neoplasm of breast
CPT/HCPCS: J0690; J2704; J7030

== ENCOUNTER 2018-02-04 05:08 | Emergency (ER) | payer MEDICARE ==
[2008-08-13 20:09] VITALS: BP 122/80
[~2018-02-04] VITALS: Ht 144.8 cm; Wt 54.5 kg
[2018-02-04 05:21] VITALS: BP 114/57; TEMP 97.4
[2018-02-04 06:29] LABS: PH 8 (5-8); URINE APPEARANCE Clear; URINE BACTERIA None Seen /hpf; URINE BILIRUBIN Negative (NEGATIVE); URINE BLOOD Negative (NEGATIVE); URINE COLOR Amber; URINE GLUCOSE Negative (NEGATIVE); URINE KETONE Trace (NEGATIVE); URINE LEUKOCYTE ESTERASE 3+ (NEGATIVE); URINE NITRATE Negative (NEGATIVE); URINE PROTEIN(semi-quant) 1+ (NEGATIVE); URINE UROBILINOGEN Negative (NEGATIVE)
[2018-02-04] MEDS ORDERED: CIPRO 500MG TA500 MG PO (06:54)
[2018-02-04 07:15] VITALS: PULSE 71
[2018-02-04 09:30] LABS: COLLECTION METHOD CLEAN CATCH
== END 2018-02-04 07:16 | disposition home or self-care (01) ==
LOC: COL.ER 05:08
PROVIDERS: Emergency Medicine
DX: N39.0 Urinary tract infection, site not specified (principal); J44.9 Chronic obstructive pulmonary disease, unspecified; E11.9 Type 2 diabetes mellitus without complications; I50.9 Heart failure, unspecified; I48.91 Unspecified atrial fibrillation; I25.10 Atherosclerotic heart disease of native coronary artery without angina pectoris; Z90.710 Acquired absence of both cervix and uterus; Z90.49 Acquired absence of other specified parts of digestive tract; Z90.89 Acquired absence of other organs; Z98.51 Tubal ligation status; Z79.02 Long term (current) use of antithrombotics/antiplatelets

== ENCOUNTER 2018-04-07 10:18 | Inpatient (IN) | payer MEDICARE, OTHER ==
[~2018-04-07] VITALS: Ht 144.8 cm; Wt 54.7 kg
[~2018-04-07 10:18] MED LIST changes: +CIPRO 500MG TA500 MG PO
[2018-04-07 11:18] LABS: BASO # 0.1 (0.0-0.2); BASO % 1.3 % (0.0-2.0); EOS # 0.7 (0.0-0.7); EOS % 8.9 % (0-4.0); GRAN # 4.9 (1.4-6.5); GRAN % 62.1 % (42.2-75.2); HEMOGLOBIN 11.7 g/dl (12.5-16.0); LYMPH # 1.4 (1.2-3.4); LYMPH % 17.8 % (20.0-51.0); MEAN CELL VOLUME 105 fl (80.0-100.0); MEAN CORPUSCULAR HEMOGLOBIN 35 pg (27.0-31.0); MEAN CORPUSCULAR HGB CONC 34 g/dl (33.0-37.0); MEAN PLATELET VOLUME 10.2 fl (7.4-10.4); MONO # 0.8 (0.1-0.6); MONO % 9.6 % (1.7-9.3); PLATELET COUNT 175 K/mm3 (130-400); RED BLOOD COUNT 3.33 M/mm3 (4.10-5.30)
[2018-04-07 11:19] LABS: HEMATOCRIT 34.9 % (37.0-47.0)
[2018-04-07 11:25] LABS: INR 1.1 (0.8-3.0); PROTHROMBIN TIME 12.6 SECONDS (9.7-12.8)
[2018-04-07 11:27] LABS: ALANINE AMINOTRANSFERASE 26 U/L (9-52); ALBUMIN 4.1 gm/dL (3.5-5.0); ALKALINE PHOSPHATASE 72 U/L (50-136); ANION GAP 3 mmol/L (7-16); AST,SGOT 56 U/L (15-37); BILIRUBIN,TOTAL 0.5 mg/dL (0.0-1.0); BLOOD UREA NITROGEN 41 mg/dL (7-17); CALCIUM 9.8 mg/dL (8.4-10.2); CARBON DIOXIDE 35 mmol/L (22-30); CHLORIDE 106 mmol/L (98-107); CREATININE, serum 1.03 mg/dL (0.52-1.25); GLUCOSE 98 mg/dL (74-106); POTASSIUM 3.8 mmol/L (3.4-5.0); SODIUM 144 mmol/L (137-145); TOTAL PROTEIN 7.6 gm/dL (6.4-8.2)
[2018-04-07 11:39] LABS: TROPONIN-I < 0.012 ng/mL (0.000-0.034)
[2018-04-07 12:49] LABS: COLLECTION METHOD CATHETER
[2018-04-07 13:07] LABS: MUCOUS Present /lpf; PH 7 (5-8); URINE APPEARANCE Cloudy; URINE BACTERIA Occasional /hpf; URINE BILIRUBIN Negative (NEGATIVE); URINE BLOOD 2+ (NEGATIVE); URINE COLOR Yellow; URINE GLUCOSE Negative (NEGATIVE); URINE KETONE Negative (NEGATIVE); URINE LEUKOCYTE ESTERASE 3+ (NEGATIVE); URINE NITRATE Negative (NEGATIVE); URINE PROTEIN(semi-quant) Negative (NEGATIVE); URINE UROBILINOGEN Negative (NEGATIVE); URINE WBC 20-50 /hpf
[2018-04-07 15:57] VITALS: BP 121/65; PULSE 81; TEMP 98
[2018-04-07 21:13] VITALS: BP 116/49; PULSE 71; TEMP 97.6
[2018-04-08 00:17] VITALS: BP 122/53; PULSE 65; TEMP 98.1
[2018-04-08 03:13] VITALS: BP 129/60; PULSE 65; TEMP 98.2
[2018-04-08 07:31] VITALS: BP 141/66; PULSE 65; TEMP 98
[2018-04-08 11:19] VITALS: BP 127/61; PULSE 66; TEMP 97.3
[2018-04-08 14:39] LABS: BASO # 0.1 (0.0-0.2); BASO % 1.3 % (0.0-2.0); EOS # 0.7 (0.0-0.7); EOS % 9.1 % (0-4.0); GRAN # 4.7 (1.4-6.5); GRAN % 63.1 % (42.2-75.2); HEMOGLOBIN 11.8 g/dl (12.5-16.0); LYMPH # 1.4 (1.2-3.4); LYMPH % 18.6 % (20.0-51.0); MEAN CELL VOLUME 102 fl (80.0-100.0); MEAN CORPUSCULAR HEMOGLOBIN 35 pg (27.0-31.0); MEAN CORPUSCULAR HGB CONC 35 g/dl (33.0-37.0); MEAN PLATELET VOLUME 10.5 fl (7.4-10.4); MONO # 0.6 (0.1-0.6); MONO % 7.6 % (1.7-9.3); PLATELET COUNT 191 K/mm3 (130-400); RED BLOOD COUNT 3.34 M/mm3 (4.10-5.30)
[2018-04-08 14:42] LABS: HEMATOCRIT 34.1 % (37.0-47.0)
[2018-04-08 14:52] LABS: CALCIUM 9.4 mg/dL (8.4-10.2); CREATININE, serum 0.81 mg/dL (0.52-1.25); POTASSIUM 3.4 mmol/L (3.4-5.0)
[2018-04-08 15:22] VITALS: BP 129/55; PULSE 78; TEMP 98.4
[2018-04-08 21:34] VITALS: BP 112/52; PULSE 73; TEMP 97.9
[2018-04-09] VITALS (7 sets, daily range): BP systolic 99–168; BP diastolic 58–88; PULSE 72–94; TEMP 97.3–98.1
[2018-04-09 03:29] LABS: COLLECTION METHOD CATHETER
[2018-04-09 03:34] LABS: PH 6 (5-8); SQUAMOUS EPITHELIAL None Seen /hpf; URINE APPEARANCE Clear; URINE BACTERIA None Seen /hpf; URINE BILIRUBIN Negative (NEGATIVE); URINE BLOOD Negative (NEGATIVE); URINE COLOR Yellow; URINE GLUCOSE Negative (NEGATIVE); URINE KETONE Negative (NEGATIVE); URINE LEUKOCYTE ESTERASE Negative (NEGATIVE); URINE NITRATE Negative (NEGATIVE); URINE PROTEIN(semi-quant) Negative (NEGATIVE); URINE RBC 0-2 /hpf; URINE UROBILINOGEN Negative (NEGATIVE)
[2018-04-09 03:36] LABS: MUCOUS Present /lpf
[2018-04-09 08:20] LABS: BASO # 0.1 (0.0-0.2); BASO % 1.1 % (0.0-2.0); EOS # 0.8 (0.0-0.7); EOS % 9.9 % (0-4.0); GRAN % 61.6 % (42.2-75.2); HEMOGLOBIN 12.1 g/dl (12.5-16.0); LYMPH # 1.6 (1.2-3.4); LYMPH % 19.3 % (20.0-51.0); MEAN CELL VOLUME 100 fl (80.0-100.0); MEAN CORPUSCULAR HEMOGLOBIN 35 pg (27.0-31.0); MEAN CORPUSCULAR HGB CONC 35 g/dl (33.0-37.0); MEAN PLATELET VOLUME 10.3 fl (7.4-10.4); MONO # 0.7 (0.1-0.6); MONO % 7.9 % (1.7-9.3); PLATELET COUNT 172 K/mm3 (130-400); RED BLOOD COUNT 3.49 M/mm3 (4.10-5.30); REDCELL DISTRIBUTION WIDTH-CV 11.7 % (11.5-14.5)
[2018-04-09 08:25] LABS: HEMATOCRIT 34.8 % (37.0-47.0)
[2018-04-09 08:30] LABS: CALCIUM 9.5 mg/dL (8.4-10.2); CREATININE, serum 0.77 mg/dL (0.52-1.25); POTASSIUM 3.6 mmol/L (3.4-5.0)
[2018-04-09 16:16] LABS: ALBUMIN 4.3 gm/dL (3.5-5.0); BILIRUBIN,TOTAL 0.5 mg/dL (0.0-1.0); CALCIUM 9.7 mg/dL (8.4-10.2); CREATININE, serum 0.88 mg/dL (0.52-1.25); MAGNESIUM 2.1 mg/dL (1.6-2.3); PHOSPHOROUS 3.6 mg/dL (2.5-4.5); POTASSIUM 3.7 mmol/L (3.4-5.0); TOTAL PROTEIN 8.1 gm/dL (6.4-8.2)
[2018-04-09 16:23] LABS: PRE ALBUMIN 31.3 mg/dL (17.6-36.0)
[2018-04-09 23:49] LABS: ARTERIAL BLD GAS O2 SATURATION 94.7 % (92-100); ARTERIAL BLD GAS TCO2 CT 29.1; ARTERIAL BLOOD GAS BASE EXCESS 4.5 (-2-2); ARTERIAL BLOOD GAS HCO3 27.9 meq/L (22-26); ARTERIAL BLOOD GAS PCO2 37.5 mmHg (35-45); ARTERIAL BLOOD GAS pH 7.49 (7.35-7.45)
[2018-04-10 03:53] VITALS: BP 118/60; PULSE 91
[2018-04-10 07:54] LABS: BASO # 0.1 (0.0-0.2); BASO % 0.8 % (0.0-2.0); EOS # 0.7 (0.0-0.7); EOS % 9.8 % (0-4.0); GRAN # 4.1 (1.4-6.5); GRAN % 56.8 % (42.2-75.2); LYMPH # 1.7 (1.2-3.4); LYMPH % 24.1 % (20.0-51.0); MEAN CELL VOLUME 101 fl (80.0-100.0); MEAN CORPUSCULAR HGB CONC 35 g/dl (33.0-37.0); MEAN PLATELET VOLUME 10.2 fl (7.4-10.4); MONO # 0.6 (0.1-0.6); MONO % 8.2 % (1.7-9.3); PLATELET COUNT 148 K/mm3 (130-400); RED BLOOD COUNT 2.87 M/mm3 (4.10-5.30); REDCELL DISTRIBUTION WIDTH-CV 11.8 % (11.5-14.5)
[2018-04-10 07:56] LABS: HEMATOCRIT 28.9 % (37.0-47.0); MEAN CORPUSCULAR HEMOGLOBIN 35 pg (27.0-31.0)
[2018-04-10 08:11] LABS: CALCIUM 7.8 mg/dL (8.4-10.2); CREATININE, serum 0.68 mg/dL (0.52-1.25); POTASSIUM 3.1 mmol/L (3.4-5.0)
[2018-04-10 08:35] VITALS: BP 154/75; PULSE 92; TEMP 97.5
[2018-04-10 12:38] VITALS: BP 114/63; PULSE 85; TEMP 97.8
[2018-04-10 17:21] VITALS: BP 124/72; PULSE 91; TEMP 97.4
[2018-04-10 19:30] VITALS: BP 156/86; PULSE 96; TEMP 99
[2018-04-10 23:51] VITALS: BP 147/72; PULSE 96; TEMP 100
[2018-04-11 00:40] LABS: FOLATE (FOLIC ACID) 15.1 ng/mL (7.0-31.4)
[2018-04-11 04:25] VITALS: BP 138/87; PULSE 87; TEMP 98.1
[2018-04-11 08:08] LABS: THYROID STIMULATING HORMONE 7.51 uIU/mL (0.465-4.680)
[2018-04-11 08:11] VITALS: BP 161/82; PULSE 92; TEMP 97
[2018-04-11 10:41] LABS: CALCIUM 9.6 mg/dL (8.4-10.2); CREATININE, serum 0.78 mg/dL (0.52-1.25); POTASSIUM 4.1 mmol/L (3.4-5.0)
[2018-04-11 12:07] VITALS: BP 123/72; PULSE 93; TEMP 97.8
[2018-04-11 15:31] LABS: HOMOCYSTEINE 11.5 umol/L (4.0-14.0)
[2018-04-11 15:58] VITALS: BP 137/75; PULSE 88; TEMP 97.7
[2018-04-11 20:28] VITALS: BP 154/80; PULSE 95; TEMP 88.6
[2018-04-12] VITALS (8 sets, daily range): BP systolic 101–158; BP diastolic 50–74; PULSE 85–106; TEMP 97.1–98.5
[2018-04-12 08:12] LABS: CALCIUM 9.4 mg/dL (8.4-10.2); CREATININE, serum 0.72 mg/dL (0.52-1.25); POTASSIUM 3.5 mmol/L (3.4-5.0)
[2018-04-13 03:18] VITALS: BP 137/72; PULSE 75; TEMP 97.7
[2018-04-13 05:29] VITALS: BP 101/53; PULSE 88
[2018-04-13 06:13] LABS: ALBUMIN 3.8 gm/dL (3.5-5.0); BILIRUBIN,TOTAL 0.8 mg/dL (0.0-1.0); CALCIUM 9.3 mg/dL (8.4-10.2); CREATININE, serum 1.1 mg/dL (0.52-1.25); MAGNESIUM 2.6 mg/dL (1.6-2.3); PHOSPHOROUS 4.6 mg/dL (2.5-4.5); TOTAL PROTEIN 7.2 gm/dL (6.4-8.2)
[2018-04-13 06:21] LABS: PRE ALBUMIN 21.9 mg/dL (17.6-36.0)
[2018-04-13 08:19] VITALS: BP 89/52; PULSE 89; TEMP 98.1
[2018-04-13 11:44] VITALS: BP 108/59; PULSE 85; TEMP 98.3
[2018-04-13 15:19] VITALS: BP 124/78; PULSE 86; TEMP 98.2
[2018-04-13 21:07] VITALS: BP 105/50; PULSE 80; TEMP 97.8
[2018-04-14 00:28] VITALS: BP 138/76; PULSE 89; TEMP 97.5
[2018-04-14 04:39] VITALS: BP 122/61; PULSE 73; TEMP 97.5
[2018-04-14 06:10] LABS: BASO # 0.1 (0.0-0.2); BASO % 0.6 % (0.0-2.0); EOS # 0.8 (0.0-0.7); EOS % 10.2 % (0-4.0); GRAN # 4.7 (1.4-6.5); GRAN % 58.4 % (42.2-75.2); HEMOGLOBIN 12.1 g/dl (12.5-16.0); LYMPH # 1.7 (1.2-3.4); LYMPH % 20.9 % (20.0-51.0); MEAN CELL VOLUME 101 fl (80.0-100.0); MEAN CORPUSCULAR HEMOGLOBIN 35 pg (27.0-31.0); MEAN CORPUSCULAR HGB CONC 35 g/dl (33.0-37.0); MONO # 0.8 (0.1-0.6); MONO % 9.7 % (1.7-9.3); PLATELET COUNT 171 K/mm3 (130-400); RED BLOOD COUNT 3.47 M/mm3 (4.10-5.30); REDCELL DISTRIBUTION WIDTH-CV 11.8 % (11.5-14.5)
[2018-04-14 06:13] LABS: HEMATOCRIT 35.1 % (37.0-47.0)
[2018-04-14 06:23] LABS: CALCIUM 9.3 mg/dL (8.4-10.2); CREATININE, serum 0.92 mg/dL (0.52-1.25); POTASSIUM 3.6 mmol/L (3.4-5.0)
[2018-04-14 08:02] VITALS: BP 113/53; PULSE 76; TEMP 97.5
[2018-04-14 12:43] VITALS: BP 101/54; PULSE 83; TEMP 98.2
[2018-04-14] MEDS ORDERED: KEPPRA 500MG500 MG PO (14:09)
[2018-04-14] MEDS ORDERED: STALEVO PO (14:14)
[2018-04-14] MEDS ORDERED: THIAMINE 1100 MG/TAB PO (14:16)
[2018-04-14] MEDS ORDERED: NYSTATIN CREAM15 GM TP (14:16)
[2018-04-14] MEDS ORDERED: SEROQUEL 2525 MG/TAB PO (14:16)
[2018-04-14 14:53] VITALS: BP 101/54; PULSE 83; TEMP 98.2
[2018-04-15 18:38] LABS: VITAMIN E 14.5 mg/L (())
== END 2018-04-14 15:36 | DRG 917 ==
LOC: COL.ER 10:18 → MEDICAL 13:49
PROVIDERS: Emergency Medicine; Nurse Practitioner Family; Physician Assistant; Psychiatry & Neurology Neurology; Student in an Organized Health Care Education/Training Program
DX: T42.8X1A Poisoning by antiparkinsonism drugs and other central muscle-tone depressants, accidental (unintentional), initial encounter (principal); G92 Toxic encephalopathy; N13.6 Pyonephrosis; I50.32 Chronic diastolic (congestive) heart failure; E87.3 Alkalosis; R44.1 Visual hallucinations; B95.4 Other streptococcus as the cause of diseases classified elsewhere; G20 Parkinson's disease; I48.0 Paroxysmal atrial fibrillation; E11.9 Type 2 diabetes mellitus without complications; J44.9 Chronic obstructive pulmonary disease, unspecified; W18.30XA Fall on same level, unspecified, initial encounter; I25.10 Atherosclerotic heart disease of native coronary artery without angina pectoris; Z95.0 Presence of cardiac pacemaker; E87.6 Hypokalemia; E83.41 Hypermagnesemia; D64.9 Anemia, unspecified; K22.2 Esophageal obstruction; G40.909 Epilepsy, unspecified, not intractable, without status epilepticus
CPT/HCPCS: 99223-AI; 99232-AI; 99233-AI; A4216; A9284; G0378; G8978-GP; G8979-GP; G8987-GO; G8988-GO; J0696; J1630; J1650; J1815; J3411; J7030; Q9967

== ENCOUNTER → 2018-04-20 | Outpatient (REF) ==
[~2018-04-20] MED LIST changes: +SEROQUEL 2525 MG/TAB PO; +THIAMINE 1100 MG/TAB PO
== END ==
LOC: ZCOL.LAB 09:14
DX: Z01.89 Encounter for other specified special examinations (principal)

== ENCOUNTER → 2018-05-18 | Outpatient (CLI) | payer MEDICARE, OTHER | LOC: COL.RAD 09:50 | DX: R33.8 Other retention of urine (principal) ==

== ENCOUNTER 2018-06-03 12:37 | Day surgery (SDC) | payer MEDICARE, OTHER ==
[2008-08-13 20:09] VITALS: BP 122/80
[~2018-06-03] VITALS: Ht 144.8 cm; Wt 53.8 kg
[2018-06-03 13:03] VITALS: BP 141/76; PULSE 72; TEMP 96.9
[2018-06-03] MEDS ORDERED: BACTRIM 400 MG-1 TAB PO (13:40)
[2018-06-03] MEDS ORDERED: SEROQUEL 2525 MG/TAB PO (14:00)
[2018-06-03] MEDS ORDERED: GLUCOPHAGE XR500 M1 PO (14:01)
[2018-06-03] MEDS ORDERED: NATURE'S BLEND100 M2 PO (14:01)
[2018-06-03] MEDS ORDERED: JEVITY 1.5 CAL237 ML PO (14:03)
[2018-06-03] MEDS ORDERED: PROLIA60 MG/ML SQ (14:03)
[2018-06-03 15:10] VITALS: BP 120/68; PULSE 65; TEMP 96.9
[2018-06-03 15:31] VITALS: BP 143/74; PULSE 65; TEMP 95.9
[2018-06-03 15:40] VITALS: BP 133/68; PULSE 64; TEMP 96.8
--- NOTE | 2018-06-03 16:00 | NUR ---
Pt VSS and Ax0x3 post PEG tuber reinsertion. site is c/d/i with gauze present around opening. Discharge instructions reviewed and signed. Pt assisted with getting clothing back on and back into wheelchair. Caregiver Roxie safely wheeled her out.
[2018-06-03 18:45] VITALS: BP 101/53; PULSE 61
== END 2018-06-03 16:00 | disposition home or self-care (01) ==
LOC: SDCO 12:37
DX: K22.0 Achalasia of cardia (principal); T18.2XXA Foreign body in stomach, initial encounter; E78.00 Pure hypercholesterolemia, unspecified; K21.9 Gastro-esophageal reflux disease without esophagitis; I25.10 Atherosclerotic heart disease of native coronary artery without angina pectoris; I25.2 Old myocardial infarction; J44.9 Chronic obstructive pulmonary disease, unspecified; I48.91 Unspecified atrial fibrillation; M19.90 Unspecified osteoarthritis, unspecified site; G20 Parkinson's disease; I08.0 Rheumatic disorders of both mitral and aortic valves; I13.0 Hypertensive heart and chronic kidney disease with heart failure and stage 1 through stage 4 chronic kidney disease, or unspecified chronic kidney disease; E11.22 Type 2 diabetes mellitus with diabetic chronic kidney disease; N18.9 Chronic kidney disease, unspecified; I50.9 Heart failure, unspecified; Z79.82 Long term (current) use of aspirin; Z79.02 Long term (current) use of antithrombotics/antiplatelets; Z79.84 Long term (current) use of oral hypoglycemic drugs; Z85.3 Personal history of malignant neoplasm of breast; Z90.11 Acquired absence of right breast and nipple; Z95.0 Presence of cardiac pacemaker; Z86.73 Personal history of transient ischemic attack (TIA), and cerebral infarction without residual deficits; Z99.81 Dependence on supplemental oxygen
CPT/HCPCS: OP; B4081; J2704; J7030

== ENCOUNTER 2018-09-25 10:06 | Emergency (ER) | payer MEDICARE, OTHER ==
[2008-08-13 20:09] VITALS: BP 122/80
[~2018-09-25] VITALS: Ht 147.3 cm; Wt 58.2 kg
[~2018-09-25 10:06] MED LIST changes: +BACTRIM 400 MG-1 TAB PO; +GLUCOPHAGE XR500 M1 PO; +JEVITY 1.5 CAL237 ML PO; +NATURE'S BLEND100 M2 PO; +PROLIA60 MG/ML SQ
[2018-09-25 10:13] VITALS: BP 129/91; TEMP 96.2
[2018-09-25 10:40] LABS: BASO # 0.1 (0.0-0.2); BASO % 0.7 % (0.0-2.0); EOS # 0.1 (0.0-0.7); GRAN # 4.3 (1.4-6.5); GRAN % 60.4 % (42.2-75.2); MEAN CELL VOLUME 100 fl (80.0-100.0); MEAN CORPUSCULAR HEMOGLOBIN 34 pg (27.0-31.0); MEAN CORPUSCULAR HGB CONC 34 g/dl (33.0-37.0); MEAN PLATELET VOLUME 10.2 fl (7.4-10.4); MONO # 0.6 (0.1-0.6); MONO % 8.5 % (1.7-9.3); PLATELET COUNT 192 K/mm3 (130-400); RED BLOOD COUNT 3.28 M/mm3 (4.10-5.30); REDCELL DISTRIBUTION WIDTH-CV 12.2 % (11.5-14.5)
[2018-09-25 10:44] LABS: HEMATOCRIT 32.7 % (37.0-47.0)
[2018-09-25 10:55] LABS: ALANINE AMINOTRANSFERASE < 6 U/L (9-52); ALBUMIN 3.9 gm/dL (3.5-5.0); ALKALINE PHOSPHATASE 143 U/L (50-136); ANION GAP 9 mmol/L (7-16); AST,SGOT 46 U/L (15-37); BILIRUBIN,TOTAL 0.6 mg/dL (0.0-1.0); BLOOD UREA NITROGEN 33 mg/dL (7-17); C-REACTIVE PROTEIN < 0.5 mg/dL (0.0-0.9); CALCIUM 9.9 mg/dL (8.4-10.2); CARBON DIOXIDE 29 mmol/L (22-30); CHLORIDE 98 mmol/L (98-107); CREATININE, serum 0.91 (0.52-1.25); GLUCOSE 236 mg/dL (74-106); POTASSIUM 3.7 mmol/L (3.4-5.0); SODIUM 135 mmol/L (137-145); TOTAL PROTEIN 7.4 gm/dL (6.4-8.2)
[2018-09-25 11:31] LABS: COLLECTION METHOD CLEAN CATCH
[2018-09-25 11:44] LABS: PH 7 (5-8); SQUAMOUS EPITHELIAL None Seen /hpf; URINE APPEARANCE Clear; URINE BACTERIA Rare /hpf; URINE BILIRUBIN Negative (NEGATIVE); URINE BLOOD Negative (NEGATIVE); URINE COLOR Yellow; URINE GLUCOSE Negative (NEGATIVE); URINE KETONE Negative (NEGATIVE); URINE LEUKOCYTE ESTERASE Negative (NEGATIVE); URINE NITRATE Negative (NEGATIVE); URINE PROTEIN(semi-quant) Negative (NEGATIVE); URINE RBC None Seen /hpf; URINE UROBILINOGEN Negative (NEGATIVE)
[2018-09-25 12:14] LABS: ARTERIAL BLD GAS O2 SATURATION 95.9 % (92-100); ARTERIAL BLD GAS TCO2 CT 29.3; ARTERIAL BLOOD GAS BASE EXCESS 5.7 (-2-2); ARTERIAL BLOOD GAS HCO3 28.3 meq/L (22-26); ARTERIAL BLOOD GAS PCO2 34.2 mmHg (35-45); ARTERIAL BLOOD GAS PO2 80.1 mmHg (80-100); ARTERIAL BLOOD GAS pH 7.54 (7.35-7.45)
[2018-09-25 14:13] VITALS: PULSE 66
== END 2018-09-25 14:13 | disposition home or self-care (01) ==
LOC: COL.ER 10:06
PROVIDERS: Family Medicine
DX: K59.00 Constipation, unspecified (principal); I48.91 Unspecified atrial fibrillation; Z93.1 Gastrostomy status; Z86.79 Personal history of other diseases of the circulatory system; Z79.02 Long term (current) use of antithrombotics/antiplatelets; Z79.84 Long term (current) use of oral hypoglycemic drugs
CPT/HCPCS: J7030

== ENCOUNTER 2018-10-25 12:17 | Emergency (ER) | payer MEDICARE, OTHER ==
[2008-08-13 20:09] VITALS: BP 122/80
[~2018-10-25] VITALS: Ht 144.8 cm; Wt 59.1 kg
[2018-10-25 12:22] VITALS: TEMP 97.1
[2018-10-25 13:15] LABS: BASO # 0.1 (0.0-0.2); BASO % 1.2 % (0.0-2.0); EOS # 0.7 (0.0-0.7); EOS % 10.2 % (0-4.0); GRAN # 3.6 (1.4-6.5); GRAN % 54.8 % (42.2-75.2); HEMOGLOBIN 10.1 g/dl (12.5-16.0); LYMPH # 1.6 (1.2-3.4); LYMPH % 24.8 % (20.0-51.0); MEAN CELL VOLUME 100 fl (80.0-100.0); MEAN CORPUSCULAR HEMOGLOBIN 34 pg (27.0-31.0); MEAN CORPUSCULAR HGB CONC 34 g/dl (33.0-37.0); MEAN PLATELET VOLUME 10.1 fl (7.4-10.4); MONO # 0.6 (0.1-0.6); MONO % 8.8 % (1.7-9.3); PLATELET COUNT 159 K/mm3 (130-400); RED BLOOD COUNT 2.99 M/mm3 (4.10-5.30); REDCELL DISTRIBUTION WIDTH-CV 13.1 % (11.5-14.5)
[2018-10-25 13:21] LABS: ALANINE AMINOTRANSFERASE < 6 U/L (9-52); ALBUMIN 3.9 gm/dL (3.5-5.0); ALKALINE PHOSPHATASE 127 U/L (50-136); ANION GAP 8 mmol/L (7-16); AST,SGOT 43 U/L (15-37); BILIRUBIN,TOTAL 0.6 mg/dL (0.0-1.0); BLOOD UREA NITROGEN 29 mg/dL (7-17); CALCIUM 9.8 mg/dL (8.4-10.2); CARBON DIOXIDE 29 mmol/L (22-30); CHLORIDE 105 mmol/L (98-107); CREATININE, serum 0.91 (0.52-1.25); GLUCOSE 93 mg/dL (74-106); LIPASE 36 U/L (23-300); POTASSIUM 3.9 mmol/L (3.4-5.0); SODIUM 142 mmol/L (137-145); TOTAL PROTEIN 7.5 gm/dL (6.4-8.2)
[2018-10-25 13:30] LABS: INR 0.9 (0.8-3.0)
[2018-10-25 13:32] LABS: C-REACTIVE PROTEIN < 0.5 mg/dL (0.0-0.9); TROPONIN-I < 0.012 ng/mL (0.000-0.035)
[2018-10-25 13:33] LABS: PARTIAL THROMBOPLASTIN TIME 33.9 SECONDS (26.0-37.0)
[2018-10-25 13:59] LABS: ERYTHROCYTE SEDIMENTATION RATE 71 mm/hr (0-30)
[2018-10-25 14:40] LABS: COLLECTION METHOD CLEAN CATCH
[2018-10-25 14:51] LABS: PH 7 (5-8); SQUAMOUS EPITHELIAL 0-2 /hpf; URINE APPEARANCE Clear; URINE BACTERIA Many /hpf; URINE BILIRUBIN Negative (NEGATIVE); URINE BLOOD Negative (NEGATIVE); URINE COLOR Yellow; URINE GLUCOSE Negative (NEGATIVE); URINE KETONE Negative (NEGATIVE); URINE LEUKOCYTE ESTERASE Negative (NEGATIVE); URINE NITRATE Negative (NEGATIVE); URINE PROTEIN(semi-quant) Negative (NEGATIVE); URINE RBC 0-2 /hpf; URINE UROBILINOGEN Negative (NEGATIVE)
[2018-10-25 16:55] VITALS: BP 134/83; PULSE 79
== END 2018-10-25 17:00 | disposition home or self-care (01) ==
LOC: COL.ER 12:17
PROVIDERS: Emergency Medicine
DX: N39.0 Urinary tract infection, site not specified (principal); I48.91 Unspecified atrial fibrillation; J44.9 Chronic obstructive pulmonary disease, unspecified; I50.9 Heart failure, unspecified; I25.10 Atherosclerotic heart disease of native coronary artery without angina pectoris; G20 Parkinson's disease; Z79.02 Long term (current) use of antithrombotics/antiplatelets; Z79.84 Long term (current) use of oral hypoglycemic drugs; Z95.0 Presence of cardiac pacemaker

== ENCOUNTER 2018-11-02 19:03 | Emergency (ER) | payer MEDICARE, OTHER ==
[2008-08-13 20:09] VITALS: BP 122/80
[~2018-11-02] VITALS: Ht 144.8 cm; Wt 59.1 kg
[~2018-11-02 19:03] MED LIST changes: +MACROBID 1100 MG/CAP PO
[2018-11-02 19:15] VITALS: TEMP 98.7
[2018-11-02 19:56] LABS: MEAN CELL VOLUME 102 fl (80.0-100.0); MEAN CORPUSCULAR HGB CONC 33 g/dl (33.0-37.0); MEAN PLATELET VOLUME 10.4 fl (7.4-10.4); PLATELET COUNT 182 K/mm3 (130-400); RED BLOOD COUNT 2.92 M/mm3 (4.10-5.30); REDCELL DISTRIBUTION WIDTH-CV 13.2 % (11.5-14.5)
[2018-11-02 20:01] LABS: HEMATOCRIT 29.7 % (37.0-47.0); HEMOGLOBIN 9.7 g/dl (12.5-16.0); MEAN CORPUSCULAR HEMOGLOBIN 33 pg (27.0-31.0)
[2018-11-02 20:10] LABS: ALANINE AMINOTRANSFERASE 12 U/L (9-52); ALBUMIN 3.8 gm/dL (3.5-5.0); ALKALINE PHOSPHATASE 112 U/L (50-136); ANION GAP 7 mmol/L (7-16); AST,SGOT 55 U/L (15-37); BILIRUBIN,TOTAL 0.5 mg/dL (0.0-1.0); BLOOD UREA NITROGEN 31 mg/dL (7-17); C-REACTIVE PROTEIN 1.7 mg/dL (0.0-0.9); CALCIUM 9.5 mg/dL (8.4-10.2); CARBON DIOXIDE 34 mmol/L (22-30); CHLORIDE 100 mmol/L (98-107); CREATININE, serum 1.04 (0.52-1.25); GLUCOSE 194 mg/dL (74-106); LIPASE 23 U/L (23-300); POTASSIUM 3.9 mmol/L (3.4-5.0); SODIUM 141 mmol/L (137-145); TOTAL PROTEIN 7.3 gm/dL (6.4-8.2)
[2018-11-02 20:20] LABS: TROPONIN-I < 0.012 ng/mL (0.000-0.035)
[2018-11-02 21:42] LABS: COLLECTION METHOD CLEAN CATCH
[2018-11-02 21:59] LABS: BAND 32 % (0-10); LYMPHOCYTE 3 % (20.0-51.0); NEUTROPHILS 64 % (42.0-75.2); PLATELET ESTIMATE NORMAL (NORMAL)
[2018-11-02 22:10] LABS: MUCOUS Present /lpf; PH 6 (5-8); URINE APPEARANCE Cloudy; URINE BACTERIA Rare /hpf; URINE BILIRUBIN Negative (NEGATIVE); URINE BLOOD 1+ (NEGATIVE); URINE COLOR Amber; URINE GLUCOSE Negative (NEGATIVE); URINE KETONE Trace (NEGATIVE); URINE LEUKOCYTE ESTERASE 2+ (NEGATIVE); URINE NITRATE Negative (NEGATIVE); URINE PROTEIN(semi-quant) Negative (NEGATIVE); URINE UROBILINOGEN Negative (NEGATIVE)
[2018-11-03 02:15] VITALS: BP 100/54; PULSE 77
== END 2018-11-03 02:30 | disposition short-term general hospital (02) ==
LOC: COL.ER 19:03
PROVIDERS: Emergency Medicine
DX: A41.9 Sepsis, unspecified organism (principal); N39.0 Urinary tract infection, site not specified; J18.9 Pneumonia, unspecified organism; I48.91 Unspecified atrial fibrillation; I25.10 Atherosclerotic heart disease of native coronary artery without angina pectoris; I50.9 Heart failure, unspecified; E11.9 Type 2 diabetes mellitus without complications; K21.9 Gastro-esophageal reflux disease without esophagitis; G20 Parkinson's disease; Z79.82 Long term (current) use of aspirin; Z79.02 Long term (current) use of antithrombotics/antiplatelets
CPT/HCPCS: A4216; J0456; J0696; J2405; J2543; J7030; J7050; J7060

== ENCOUNTER 2018-11-30 10:51 | Emergency (ER) | payer MEDICARE, OTHER ==
[2008-08-13 20:09] VITALS: BP 122/80
[~2018-11-30] VITALS: Ht 144.8 cm; Wt 59.1 kg
[2018-11-30 10:58] VITALS: TEMP 97
[2018-11-30 11:36] LABS: BASO # 0.1 (0.0-0.2); BASO % 0.7 % (0.0-2.0); EOS # 0.4 (0.0-0.7); EOS % 6.1 % (0-4.0); GRAN # 3.9 (1.4-6.5); GRAN % 54.9 % (42.2-75.2); HEMATOCRIT 33.6 % (37.0-47.0); HEMOGLOBIN 11.2 g/dl (12.5-16.0); LYMPH # 2.1 (1.2-3.4); LYMPH % 29.4 % (20.0-51.0); MEAN CELL VOLUME 99 fl (80.0-100.0); MEAN CORPUSCULAR HEMOGLOBIN 33 pg (27.0-31.0); MEAN CORPUSCULAR HGB CONC 33 g/dl (33.0-37.0); MEAN PLATELET VOLUME 9.7 fl (7.4-10.4); MONO # 0.6 (0.1-0.6); MONO % 8.5 % (1.7-9.3); PLATELET COUNT 211 K/mm3 (130-400); REDCELL DISTRIBUTION WIDTH-CV 12.6 % (11.5-14.5)
[2018-11-30 11:42] LABS: ALANINE AMINOTRANSFERASE < 6 U/L (9-52); ALBUMIN 4.6 gm/dL (3.5-5.0); ALKALINE PHOSPHATASE 221 U/L (50-136); ANION GAP 12 mmol/L (7-16); AST,SGOT 23 U/L (15-37); BILIRUBIN,TOTAL 0.5 mg/dL (0.0-1.0); BLOOD UREA NITROGEN 21 mg/dL (7-17); C-REACTIVE PROTEIN 1.4 mg/dL (0.0-0.9); CALCIUM 10.1 mg/dL (8.4-10.2); CARBON DIOXIDE 31 mmol/L (22-30); CHLORIDE 98 mmol/L (98-107); CREATININE, serum 0.85 (0.52-1.25); GLUCOSE 132 mg/dL (74-106); POTASSIUM 3.9 mmol/L (3.4-5.0); SODIUM 141 mmol/L (137-145); TOTAL PROTEIN 8.8 gm/dL (6.4-8.2)
[2018-11-30 12:01] LABS: COLLECTION METHOD CLEAN CATCH
[2018-11-30 12:07] LABS: PH 7 (5-8); SQUAMOUS EPITHELIAL 0-2 /hpf; URINE APPEARANCE Clear; URINE BACTERIA None Seen /hpf; URINE BILIRUBIN Negative (NEGATIVE); URINE BLOOD Negative (NEGATIVE); URINE COLOR Yellow; URINE GLUCOSE Negative (NEGATIVE); URINE KETONE Negative (NEGATIVE); URINE LEUKOCYTE ESTERASE Negative (NEGATIVE); URINE NITRATE Negative (NEGATIVE); URINE PROTEIN(semi-quant) Negative (NEGATIVE); URINE RBC 0-2 /hpf; URINE UROBILINOGEN Negative (NEGATIVE)
[2018-11-30 12:48] VITALS: BP 135/71; PULSE 65
== END 2018-11-30 12:50 | disposition home or self-care (01) ==
LOC: COL.ER 10:51
PROVIDERS: Family Medicine
DX: N39.0 Urinary tract infection, site not specified (principal); F41.9 Anxiety disorder, unspecified; G20 Parkinson's disease; E11.9 Type 2 diabetes mellitus without complications; I25.10 Atherosclerotic heart disease of native coronary artery without angina pectoris; J44.9 Chronic obstructive pulmonary disease, unspecified; Z79.02 Long term (current) use of antithrombotics/antiplatelets; Z79.84 Long term (current) use of oral hypoglycemic drugs
CPT/HCPCS: A4216; J0696; J2060; J2405; J7030

== ENCOUNTER 2018-12-10 13:43 | Emergency (ER) | payer MEDICARE, OTHER ==
[2008-08-13 20:09] VITALS: BP 122/80
[~2018-12-10] VITALS: Ht 144.8 cm; Wt 60.0 kg
[~2018-12-10 13:43] MED LIST changes: +K-DUR20 MEQ PO; -KLOR-CON20 MEQ PO
[2018-12-10 13:48] VITALS: BP 138/66; TEMP 97.4
[2018-12-10 15:41] LABS: BASO # 0.1 (0.0-0.2); BASO % 0.7 % (0.0-2.0); EOS # 0.4 (0.0-0.7); EOS % 5.8 % (0-4.0); GRAN # 4.9 (1.4-6.5); GRAN % 63.5 % (42.2-75.2); HEMOGLOBIN 10.5 g/dl (12.5-16.0); LYMPH # 1.7 (1.2-3.4); LYMPH % 22.5 % (20.0-51.0); MEAN CELL VOLUME 99 fl (80.0-100.0); MEAN CORPUSCULAR HEMOGLOBIN 34 pg (27.0-31.0); MEAN CORPUSCULAR HGB CONC 34 g/dl (33.0-37.0); MEAN PLATELET VOLUME 9.7 fl (7.4-10.4); MONO # 0.6 (0.1-0.6); MONO % 7.2 % (1.7-9.3); PLATELET COUNT 182 K/mm3 (130-400); RED BLOOD COUNT 3.13 M/mm3 (4.10-5.30); REDCELL DISTRIBUTION WIDTH-CV 12.8 % (11.5-14.5)
[2018-12-10 15:46] LABS: HEMATOCRIT 31.1 % (37.0-47.0)
[2018-12-10 15:54] LABS: COLLECTION METHOD CLEAN CATCH
[2018-12-10 15:56] LABS: ALANINE AMINOTRANSFERASE < 6 U/L (9-52); ALKALINE PHOSPHATASE 184 U/L (50-136); ANION GAP 11 mmol/L (7-16); AST,SGOT 11 U/L (15-37); BILIRUBIN,TOTAL 0.5 mg/dL (0.0-1.0); BLOOD UREA NITROGEN 24 mg/dL (7-17); C-REACTIVE PROTEIN 1.1 mg/dL (0.0-0.9); CALCIUM 9.6 mg/dL (8.4-10.2); CARBON DIOXIDE 28 mmol/L (22-30); CHLORIDE 99 mmol/L (98-107); CREATININE, serum 1.04 (0.52-1.25); GLUCOSE 128 mg/dL (74-106); LIPASE 42 U/L (23-300); POTASSIUM 3.5 mmol/L (3.4-5.0); SODIUM 138 mmol/L (137-145); TOTAL PROTEIN 7.7 gm/dL (6.4-8.2)
[2018-12-10 16:00] LABS: PH 6 (5-8); SQUAMOUS EPITHELIAL 0-2 /hpf; URINE APPEARANCE Clear; URINE BACTERIA Rare /hpf; URINE BILIRUBIN Negative (NEGATIVE); URINE BLOOD 1+ (NEGATIVE); URINE COLOR Yellow; URINE GLUCOSE Negative (NEGATIVE); URINE KETONE Negative (NEGATIVE); URINE LEUKOCYTE ESTERASE Negative (NEGATIVE); URINE NITRATE Negative (NEGATIVE); URINE PROTEIN(semi-quant) Negative (NEGATIVE); URINE UROBILINOGEN Negative (NEGATIVE)
[2018-12-10 16:39] VITALS: PULSE 68
[2018-12-11] MEDS ORDERED: IPRATROPIUM BROM3 M1 IH (13:46)
[2018-12-11] MEDS ORDERED: STALEVO PO (13:48)
[2018-12-11] MEDS ORDERED: UREX1 GM PO (14:04)
[2018-12-11] MEDS ORDERED: BREO IH (14:05)
[2018-12-11] MEDS ORDERED: PEPCID 20MG TAB20 MG PO (14:05)
[2018-12-11] MEDS ORDERED: RT ADVAIR 528 DISKUS IH (14:06)
[2018-12-11] MEDS ORDERED: NATURAL MAGNES200 MG PO (14:08)
[2018-12-11] MEDS ORDERED: MASON NATURAL325 MG PO (14:10)
[2018-12-11] MEDS ORDERED: B-12 500 MCG PO (14:11)
== END 2018-12-10 16:45 | disposition home or self-care (01) ==
LOC: COL.ER 13:43
PROVIDERS: Family Medicine
DX: K59.00 Constipation, unspecified (principal); I48.91 Unspecified atrial fibrillation; I25.10 Atherosclerotic heart disease of native coronary artery without angina pectoris; J44.9 Chronic obstructive pulmonary disease, unspecified; E11.9 Type 2 diabetes mellitus without complications; Z90.89 Acquired absence of other organs; Z79.02 Long term (current) use of antithrombotics/antiplatelets; Z79.84 Long term (current) use of oral hypoglycemic drugs
CPT/HCPCS: J2550; J7030

== ENCOUNTER 2018-12-11 12:59 | Day surgery (SDC) | payer MEDICARE, OTHER ==
[2008-08-13 20:09] VITALS: BP 122/80
[~2018-12-11] VITALS: Ht 144.8 cm; Wt 60.6 kg
[2018-12-11] MEDS ORDERED: IPRATROPIUM BROM3 M1 IH (13:46)
[2018-12-11] MEDS ORDERED: STALEVO PO (13:48)
[2018-12-11] MEDS ORDERED: UREX1 GM PO (14:04)
[2018-12-11] MEDS ORDERED: BREO IH (14:05)
[2018-12-11] MEDS ORDERED: PEPCID 20MG TAB20 MG PO (14:05)
[2018-12-11] MEDS ORDERED: RT ADVAIR 528 DISKUS IH (14:06)
[2018-12-11] MEDS ORDERED: NATURAL MAGNES200 MG PO (14:08)
[2018-12-11] MEDS ORDERED: MASON NATURAL325 MG PO (14:10)
[2018-12-11] MEDS ORDERED: B-12 500 MCG PO (14:11)
[2018-12-11 15:05] VITALS: BP 151/71; PULSE 62
--- NOTE | 2018-12-11 15:05 | NUR ---
Patient brought back to bay 3 via cart. Patient to remain on cart, weak on feet. Alert and oriented. Vital signs stable. Denies any pain or nausea. Patient states she would like a water pudding and crackers. Tolerating well. biomedical specialist at bedside. Call newsome within reach, will continue to monitor.
[2018-12-11 15:20] VITALS: BP 156/68; PULSE 64
--- NOTE | 2018-12-11 15:20 | NUR ---
Patient tolerated food and drink without difficulty. Denies any nausea. Vital signs stable. States that she needs to use restroom. Voided without difficulty. Will continue to monitor.
[2018-12-11 15:35] VITALS: BP 152/70; PULSE 68
--- NOTE | 2018-12-11 15:35 | NUR ---
Patient states she is ready to go home at this time. Vital signs stable. All safety maintained. Will continue to monitor.
--- NOTE | 2018-12-11 15:40 | NUR ---
Discharge instructions reviewed with patient and caregiver. All questions answered. Patient brought down via wheel chair. To be driven home by caregiver
[2018-12-11 15:58] VITALS: BP 154/71; PULSE 68; TEMP 97.3
== END 2018-12-11 15:45 | disposition home or self-care (01) ==
LOC: SDCO 12:59
DX: K94.23 Gastrostomy malfunction (principal); K22.0 Achalasia of cardia; K59.00 Constipation, unspecified; E78.00 Pure hypercholesterolemia, unspecified; I25.2 Old myocardial infarction; I25.10 Atherosclerotic heart disease of native coronary artery without angina pectoris; I13.0 Hypertensive heart and chronic kidney disease with heart failure and stage 1 through stage 4 chronic kidney disease, or unspecified chronic kidney disease; E11.22 Type 2 diabetes mellitus with diabetic chronic kidney disease; N18.9 Chronic kidney disease, unspecified; I50.9 Heart failure, unspecified; J44.9 Chronic obstructive pulmonary disease, unspecified; G47.33 Obstructive sleep apnea (adult) (pediatric); D64.9 Anemia, unspecified; G20 Parkinson's disease; M19.90 Unspecified osteoarthritis, unspecified site; K21.9 Gastro-esophageal reflux disease without esophagitis; Z79.82 Long term (current) use of aspirin; Z79.84 Long term (current) use of oral hypoglycemic drugs; Z79.02 Long term (current) use of antithrombotics/antiplatelets; Z85.3 Personal history of malignant neoplasm of breast; Z86.010 Personal history of colon polyps; Z90.11 Acquired absence of right breast and nipple; Z95.0 Presence of cardiac pacemaker; Z86.73 Personal history of transient ischemic attack (TIA), and cerebral infarction without residual deficits
CPT/HCPCS: J2704; J7030

== ENCOUNTER 2018-12-30 08:55 | Outpatient (CLI) | payer MEDICARE, OTHER ==
[2008-08-13 20:09] VITALS: BP 122/80
[~2018-12-30] VITALS: Ht 144.8 cm; Wt 62.1 kg
[~2018-12-30 08:55] MED LIST changes: +B-12 500 MCG PO; +BREO IH; +MASON NATURAL325 MG PO; +NATURAL MAGNES200 MG PO; +RT ADVAIR 528 DISKUS IH; +UREX1 GM PO
[2018-12-30 09:18] VITALS: BP 114/55; PULSE 68; TEMP 97.6
[2018-12-30] MEDS ORDERED: KEPPRA 500MG500 MG PO (09:58)
[2018-12-30] MEDS ORDERED: MIRALAX PA17 GM/Dose PO (10:08)
== END 2018-12-30 10:11 | disposition home or self-care (01) ==
LOC: EUO 08:55
DX: M81.0 Age-related osteoporosis without current pathological fracture (principal); Z79.899 Other long term (current) drug therapy
CPT/HCPCS: J0897

== ENCOUNTER 2019-01-09 16:47 | Inpatient (IN) | payer MEDICARE, OTHER ==
[~2019-01-09] VITALS: Ht 144.8 cm; Wt 61.0 kg
[2019-01-09 18:03] LABS: BASO # 0.1 (0.0-0.2); BASO % 0.5 % (0.0-2.0); EOS # 0.3 (0.0-0.7); EOS % 2.8 % (0-4.0); GRAN # 7.4 (1.4-6.5); GRAN % 79.2 % (42.2-75.2); LYMPH # 0.9 (1.2-3.4); LYMPH % 9.5 % (20.0-51.0); MEAN CELL VOLUME 98 fl (80.0-100.0); MEAN CORPUSCULAR HGB CONC 33 g/dl (33.0-37.0); MEAN PLATELET VOLUME 9.6 fl (7.4-10.4); MONO # 0.7 (0.1-0.6); MONO % 7.1 % (1.7-9.3); PLATELET COUNT 188 K/mm3 (130-400); RED BLOOD COUNT 3.09 M/mm3 (4.10-5.30); REDCELL DISTRIBUTION WIDTH-CV 12.7 % (11.5-14.5)
[2019-01-09 18:08] LABS: PROTHROMBIN TIME 11.4 SECONDS (9.7-12.8)
[2019-01-09 18:20] LABS: HEMATOCRIT 30.4 % (37.0-47.0); HEMOGLOBIN 9.9 g/dl (12.5-16.0); MEAN CORPUSCULAR HEMOGLOBIN 32 pg (27.0-31.0)
[2019-01-09 18:29] LABS: ALANINE AMINOTRANSFERASE < 6 U/L (9-52); ALBUMIN 4.1 gm/dL (3.5-5.0); ALKALINE PHOSPHATASE 166 U/L (50-136); ANION GAP 5 mmol/L (7-16); AST,SGOT 32 U/L (15-37); BILIRUBIN,TOTAL 0.7 mg/dL (0.0-1.0); BLOOD UREA NITROGEN 43 mg/dL (7-17); CALCIUM 9.7 mg/dL (8.4-10.2); CARBON DIOXIDE 32 mmol/L (22-30); CHLORIDE 107 mmol/L (98-107); CREATININE, serum 0.95 (0.52-1.25); GLUCOSE 126 mg/dL (74-106); POTASSIUM 4.1 mmol/L (3.4-5.0); SODIUM 144 mmol/L (137-145); TOTAL PROTEIN 8.1 gm/dL (6.4-8.2)
[2019-01-09] MEDS ORDERED: NATURE'S BLEND100 M2 PO (21:31)
[2019-01-09] MEDS ORDERED: NYSTATIN CREAM15 GM TP (21:34)
[2019-01-09] MEDS ORDERED: VITAMIND3 5000 PO (21:35)
[2019-01-09] MEDS ORDERED: MIRAPEX 1MG PO (21:37)
[2019-01-09] MEDS ORDERED: MAG-OX 400400 MG/TAB PO (21:37)
[2019-01-09] MEDS ORDERED: FERROUSAL325 MG PO (21:39)
--- NOTE | 2019-01-09 22:06 | NUR ---
Pt. arrived to the floor via stretcher. Pt. transfered to bed with 3 assist and slideboard. Pt. is A&OX3, assessment complete. INT to lt. forearm patent. Pt. reports pain at a 8 on pain scale at this time. Gave norco. Pt. denies further needs, call light within reach.
[2019-01-09 22:32] VITALS: BP 111/53; PULSE 79; TEMP 97.8
[2019-01-10] VITALS (7 sets, daily range): BP systolic 88–124; BP diastolic 40–59; PULSE 70–98; TEMP 97.9–98.8
[2019-01-10 04:50] LABS: COLLECTION METHOD CLEAN CATCH
[2019-01-10 04:57] LABS: MUCOUS Present /lpf; PH 5 (5-8); SQUAMOUS EPITHELIAL 0-2 /hpf; URINE APPEARANCE Clear; URINE BACTERIA None Seen /hpf; URINE BILIRUBIN Negative (NEGATIVE); URINE BLOOD Negative (NEGATIVE); URINE COLOR Yellow; URINE GLUCOSE Negative (NEGATIVE); URINE KETONE Trace (NEGATIVE); URINE LEUKOCYTE ESTERASE Negative (NEGATIVE); URINE NITRATE Negative (NEGATIVE); URINE PROTEIN(semi-quant) Negative (NEGATIVE); URINE RBC 0-2 /hpf; URINE UROBILINOGEN Negative (NEGATIVE)
--- NOTE | 2019-01-10 06:09 | NUR ---
Pt. slept well through the night. Pt. remains A&OX3. Pt. up to chair at this time. Pt. denies pain or other needs, call light within reach.
[2019-01-10 06:36] LABS: BASO # 0.1 (0.0-0.2); BASO % 0.7 % (0.0-2.0); EOS # 0.3 (0.0-0.7); EOS % 2.8 % (0-4.0); GRAN # 7.4 (1.4-6.5); GRAN % 82.4 % (42.2-75.2); LYMPH # 0.9 (1.2-3.4); LYMPH % 9.5 % (20.0-51.0); MEAN CELL VOLUME 100 fl (80.0-100.0); MEAN CORPUSCULAR HGB CONC 33 g/dl (33.0-37.0); MONO # 0.4 (0.1-0.6); MONO % 4.2 % (1.7-9.3); PLATELET COUNT 177 K/mm3 (130-400)
[2019-01-10 06:42] LABS: HEMOGLOBIN 9.1 g/dl (12.5-16.0); MEAN CORPUSCULAR HEMOGLOBIN 33 pg (27.0-31.0)
[2019-01-10 06:46] LABS: CALCIUM 8.6 mg/dL (8.4-10.2); CREATININE, serum 1.19 (0.52-1.25); POTASSIUM 4.3 mmol/L (3.4-5.0)
--- NOTE | 2019-01-10 09:00 | NUR ---
Sitting up in recliner chair. Medicated with [place] for c/o pain in hip. Ate most of breakfast. Orthopedics saw patient.
--- NOTE | 2019-01-10 10:00 | NUR ---
Requested to return to bed. Transferred with walker and two staff assist. K-pad applied to left hip for c/o discomfort.
--- NOTE | 2019-01-10 14:00 | NUR ---
Sleeping with k-pad to left hip.
--- NOTE | 2019-01-10 15:13 | NUR ---
Plan: TO return home with Son and DTR, Boubacar -Son also DPOA is care support. Assess: Patient reports that use of care givers home heatl 4 x a week. Patient reports that she see Dr. Yuan as PCP, Patient indicated that she uses [facility] for Med[facility] and has a walker and 02 that she uses 2 liters daily on Con-flow. Action: Patient has supports at home. Please follow for any additional need changes. SW educated patient community supports.
--- NOTE | 2019-01-10 18:00 | NUR ---
Voided jeffrey urine per bedside commode. Encouraged to drink lots of water. Denied pain. Transferred back to chair with two staff max assist.
[2019-01-11] VITALS (7 sets, daily range): BP systolic 96–116; BP diastolic 44–53; PULSE 69–75; TEMP 97.8–98.6
--- NOTE | 2019-01-11 05:10 | NUR ---
PT IN BED. ASSISTED TO COMMODE SEVERAL TIMES DURING THE NIGHT. PT DOES NOT SEEM TO WANT TO BEAR ANY WEIGHT, ESPECIALLY ON HER LLE.
[2019-01-11 07:28] LABS: CALCIUM 8.3 mg/dL (8.4-10.2); CREATININE, serum 1.14 (0.52-1.25); POTASSIUM 4.1 mmol/L (3.4-5.0)
--- NOTE | 2019-01-11 07:30 | NUR ---
Sitting up in chair. Requests to get back in bed. Requires assist of 1-3 staff to transfer from chair to commode, then from commode to bed. Urinates small amount of clear yellow urine. Assisted into bed. Weight obtained at this time. Patient rating pain 8/10 in left hip and lower back on left side. Describes the pain as soreness. Administered [place] one tablet by mouth per orders. Patient takes medication without difficulty. Heating pad applied to left hip area. Contacted MRI staff to remind them that the patient has a pacemaker. They will get patient for MRI at around 1445 today.
--- NOTE | 2019-01-11 11:30 | NUR ---
NATASHA attended clinical rounds with the team. The patient is to have an MRI today, 9-16. PT/OT are recommeding post acute rehabilitation. NATASHA met with the patient and presented the patient choice form to the patient. Patient[facility] choice is [facility] and second choice is [facility]. SW to fax referrals. NATASHA contacted the patient's son/DPOA-HC, Boubacar and he was in agreeance with the plan. application services manager will continue to follow to ensure a safe discharge.
--- NOTE | 2019-01-11 12:28 | NUR ---
Lying in bed, using bedpan at this time. Removed bedpan, no urine or stool in bedpan. Nisreen care provided. Patient repositioned in bed. Asked patient if she would like to sit in chair for lunch and patient declines. Patient has ordered lunch and would like to stay in bed to eat her lunch. Removed bandage on left lower leg. Small amount of blood noted. Reapplied telfa and wrapped with dennis wrap. Side rails up, call light in reach. Patient declines further needs at this time.
--- NOTE | 2019-01-11 14:58 | NUR ---
Patient explains pain is 5/10, sore and is worse with movement. Tylenol 650mg administered PO. Patient requests to use commode. Transfers x2 from chair to commode. Patient to go to the bed as MRI will be coming to get patient for exam. Patient stood but then unable to move feet to transfer to bed. Complete transfer x2 into the bed. Telemetry paused for patient to go for MRI. MRI staff in with cot to transfer from bed to their cot. Patient to MRI with MRI staff.
--- NOTE | 2019-01-11 15:07 | NUR ---
Sonya from [facility] reports they can accept the patient for a [facility] stay. volunteer services coordinator will continue to follow.
--- NOTE | 2019-01-11 20:55 | NUR ---
Pt. sitting up in bed reading at this time. Pt. is A&OX3, assessment complete. INT to lt. forearm patent. Pt. reports pain at a 5 on pain scale, gave pain meds per orders. Pt. denies further needs, call light within reach.
[2019-01-12 04:00] VITALS: BP 100/45; PULSE 76; TEMP 98.1
--- NOTE | 2019-01-12 05:23 | NUR ---
Pt. slept off and on through the night. Pt. remains A&OX3. INT to lt. forearm patent. Abd. less firm this am. Pt. reported passing a lot of gas. Pt. denies pain or other needs at this time.
[2019-01-12 08:16] VITALS: BP 121/61; PULSE 75; TEMP 99.2
--- NOTE | 2019-01-12 10:25 | NUR ---
SW attended clinical rounds. Patient continues to have a lot of pain and is not able to bear much weight. [facility] and continue to follow.
[2019-01-12 11:53] VITALS: BP 110/53; PULSE 67; TEMP 98.3
--- NOTE | 2019-01-12 15:55 | NUR ---
Patient sitting up in chair. Rates pain 3/10, describes as sore. If patient moves certain ways the pain increases in the left hip. Patient explains that she is ready for her bed bath at this time. Explained that I would let FIORELLA Chi, know that she is ready for this. Peg tube flushed with 25mL saline without difficulty. Patient tolerates well. Cleaned area around peg tube and applied new gauze dressing to site. Patient denies further needs at this time.
--- NOTE | 2019-01-12 17:24 | NUR ---
Accu check 51. Patient provided with juice and dinner ordered. Patient denies any complaints or concerns. Lying in bed. Alert, in no acute distress.
[2019-01-12 17:35] VITALS: BP 117/51; PULSE 66; TEMP 97.7
--- NOTE | 2019-01-12 19:56 | NUR ---
PT AT THIS TIME IS SLEEPING VERY SOUNDLY. DISCUSSED WITH RN. DECISION TO LET PT SLEEP AT THIS TIME. WILL GIVE TREATMENT IF/WHEN PT AWAKENS.
[2019-01-12 20:00] VITALS: BP 117/54; PULSE 65; TEMP 97.9
--- NOTE | 2019-01-12 20:15 | NUR ---
Pt. laying in bed at this time. Pt. is A&OX3, assessment complete. INT to lt. forearm patent. Dressing to lt. lower leg cdi with telfa and tegaderm. Pt denies pain or other needs at this time. Call light within reach.
[2019-01-13 00:19] VITALS: BP 92/42; PULSE 66; TEMP 98.3
[2019-01-13 03:05] VITALS: BP 113/52; PULSE 69; TEMP 98.2
[2019-01-13 07:30] LABS: BASO % 0.5 % (0.0-2.0); EOS # 0.4 (0.0-0.7); EOS % 7.1 % (0-4.0); GRAN # 3.6 (1.4-6.5); GRAN % 62.5 % (42.2-75.2); LYMPH # 1.1 (1.2-3.4); LYMPH % 18.3 % (20.0-51.0); MEAN CELL VOLUME 100 fl (80.0-100.0); MEAN CORPUSCULAR HGB CONC 33 g/dl (33.0-37.0); MEAN PLATELET VOLUME 10.3 fl (7.4-10.4); MONO # 0.6 (0.1-0.6); MONO % 11.1 % (1.7-9.3); PLATELET COUNT 163 K/mm3 (130-400); RED BLOOD COUNT 2.37 M/mm3 (4.10-5.30); REDCELL DISTRIBUTION WIDTH-CV 13.2 % (11.5-14.5)
[2019-01-13 07:41] LABS: CALCIUM 8.4 mg/dL (8.4-10.2); CREATININE, serum 1.04 (0.52-1.25); HEMATOCRIT 23.6 % (37.0-47.0); HEMOGLOBIN 7.7 g/dl (12.5-16.0); MEAN CORPUSCULAR HEMOGLOBIN 32 pg (27.0-31.0); POTASSIUM 4.4 mmol/L (3.4-5.0)
[2019-01-13 08:14] VITALS: BP 106/45; PULSE 68; TEMP 97.8
--- NOTE | 2019-01-13 08:47 | NUR ---
PATIENT ASSESSMENT COMPLETED. PATIENT IS ALERT AND ORIENTED WITH VSS. PATIENT IS HERE WITH DX OF LEFT HIP PAIN. PATIENT DENIES PAIN AT THIS TIME. PATIENT HEART AND LUNG SOUNDS NORMAL. PATIENT IN PLEASANT MOOD. PATIENT ATE 100% OF BREAKFAST THIS AM WITH ALL MORNING MEDICATIONS GIVEN. PATIENT HAS ONLY BEEN TAKING TYLENOL FOR PAIN. PATIENT CALL LIGHT WITHIN REACH, WILL CONTINUE TO MONITOR
[2019-01-13 11:52] VITALS: BP 122/55; PULSE 67; TEMP 97.6
[2019-01-13 16:00] VITALS: BP 110/50; PULSE 67; TEMP 97.9
--- NOTE | 2019-01-13 17:32 | NUR ---
PATIENT DOING WELL. PATIENT ALERT AND ORIENTED AND VSS. PEG TUBE DRESSING CHANGED. PATIENT DENIES PAIN AT THIS TIME. PATIENT RESTING IN CHAIR READING. PATIENT ATE 100% OF DINNER. PATIENT IS STILL 2 PERSON ASSIST. PATIENT DID HAVE A MEDIUM BROWN BM THIS AFTERNOON. CALL LIGHT WITHIN REACH, WILL CONTINUE TO MONITOR
--- NOTE | 2019-01-13 19:00 | NUR ---
Report received from JIMMIE Cowan. Pt in chair at side of bed resting. Denies needs, will continue to monitor.
[2019-01-13 19:53] VITALS: BP 144/74; PULSE 76; TEMP 98
--- NOTE | 2019-01-13 21:00 | NUR ---
Assessment charted. Pt in bed resting, doing well. PEG tube flushed and HOB elevated while pills digest. Pt doing well, PRN pain meds given for hip pain per request. L willis skin tear covered. INT to LFA. Tele. Pt doing well, anticipating dishcarge to [facility] tomorrow. Will continue to monitor.
[2019-01-14 00:13] VITALS: BP 100/45; PULSE 68; TEMP 97.9
[2019-01-14 04:13] VITALS: BP 110/48; PULSE 71; TEMP 98
--- NOTE | 2019-01-14 06:21 | NUR ---
Pt in bed resting, up to bedpan overnight several times, wants to get up to chair this am. Doing well, denies needs, will give bedside shift report to dayshift nurse who will resume care.
[2019-01-14 06:40] LABS: BASO % 0.8 % (0.0-2.0); EOS # 0.5 (0.0-0.7); EOS % 9.4 % (0-4.0); GRAN # 3.2 (1.4-6.5); GRAN % 60.7 % (42.2-75.2); LYMPH # 0.9 (1.2-3.4); LYMPH % 18.1 % (20.0-51.0); MEAN CELL VOLUME 99 fl (80.0-100.0); MEAN CORPUSCULAR HGB CONC 32 g/dl (33.0-37.0); MEAN PLATELET VOLUME 10.1 fl (7.4-10.4); MONO # 0.6 (0.1-0.6); MONO % 10.8 % (1.7-9.3); PLATELET COUNT 177 K/mm3 (130-400); REDCELL DISTRIBUTION WIDTH-CV 12.8 % (11.5-14.5)
[2019-01-14 06:44] LABS: HEMATOCRIT 24.7 % (37.0-47.0); MEAN CORPUSCULAR HEMOGLOBIN 32 pg (27.0-31.0)
[2019-01-14 06:52] LABS: CALCIUM 8.2 mg/dL (8.4-10.2); CREATININE, serum 0.89 (0.52-1.25); POTASSIUM 4.2 mmol/L (3.4-5.0)
--- NOTE | 2019-01-14 07:48 | NUR ---
RA SPO2 82% 2 LPM NC 93%.
[2019-01-14 08:20] VITALS: BP 114/68; PULSE 76; TEMP 97.9
--- NOTE | 2019-01-14 08:37 | NUR ---
PATIENT ASSESSMENT COMPLETED. PATIENT IS ALERT AND ORIENTED WITH VSS. PATIENT HER WITH DX OF LEFT HIP PAIN. PATIENT IS STILL C/O SOME MILD PAIN. PRN NORCO GIVEN TO PATIENT. PATIENT SITTING IN CHAIR READING. PATIENT HEART AND LUNG SOUNDS NORMAL. PATIENT TO GO TO [facility] SWING BED TODAY. PATIENT ATE 100% OF BREAKFAST. RESPIRATORY PUT PATIENT ON 2L OF O2 DUE TO OXYGEN DROPPING WHILE EATING BREAKFAST. PATIENT TOLERATING WELL. CALL LIGHT WITHIN REACH, WILL CONTINUE TO MONITOR
[2019-01-14] MEDS ORDERED: NORCO 325 MG-51 TAB PO (08:58)
[2019-01-14] MEDS ORDERED: SENOKOT S 50 MG1 TAB PO (09:01)
--- NOTE | 2019-01-14 09:34 | NUR ---
SW attended clinical rounds to discuss discharge today. Patient's caregiver Shruti was also present. Patient will discharge to [facility] for skilled rehab. NATASHA presented IM to patient. She verbalized understanding, signed, and was provided a copy. Patient's son, Boubacar, is aware of discharge per patient's caregiver. NATASHA faxed discharge orders and will arrange transportation time.
[2019-01-14 10:26] VITALS: BP 114/68; PULSE 76; TEMP 97.9
--- NOTE | 2019-01-14 11:19 | NUR ---
PATIENT DISCHARGE TO [facility]. PATIENT IV TAKEN OUT BY [facility] LOAD OUT PERSON. ALL PATIENT QUESTIONS ASKED AND ANSWERED. PATIENT WHEELED OUT BY [facility] STAFF. ALL DISCHARGE PAPERS SENT WITH PIZZA CHEF.
== END 2019-01-14 11:15 | DRG 554 ==
LOC: COL.ER 16:47 → SURG 18:51 → COL.ER 18:53 → SURG 21:04
PROVIDERS: Emergency Medicine; Nurse Practitioner Family; Physician Assistant; ADMIT Internal Medicine
DX: M17.12 Unilateral primary osteoarthritis, left knee (principal); S32.059A Unspecified fracture of fifth lumbar vertebra, initial encounter for closed fracture; I50.30 Unspecified diastolic (congestive) heart failure; S80.212A Abrasion, left knee, initial encounter; M25.552 Pain in left hip; I25.10 Atherosclerotic heart disease of native coronary artery without angina pectoris; E11.9 Type 2 diabetes mellitus without complications; I48.0 Paroxysmal atrial fibrillation; W19.XXXA Unspecified fall, initial encounter; D64.9 Anemia, unspecified; J44.9 Chronic obstructive pulmonary disease, unspecified; R53.81 Other malaise; G40.909 Epilepsy, unspecified, not intractable, without status epilepticus; K21.9 Gastro-esophageal reflux disease without esophagitis; Z66 Do not resuscitate; G20 Parkinson's disease; I95.9 Hypotension, unspecified; Z90.11 Acquired absence of right breast and nipple; Z90.89 Acquired absence of other organs; Z98.51 Tubal ligation status; I25.2 Old myocardial infarction; Z95.0 Presence of cardiac pacemaker; Z90.721 Acquired absence of ovaries, unilateral; Z87.01 Personal history of pneumonia (recurrent); Z79.84 Long term (current) use of oral hypoglycemic drugs; Z87.440 Personal history of urinary (tract) infections
CPT/HCPCS: 99232-AI; 99233-AI; 99239; G0378; J1650; J1815; J2270; J2405; J3010

== ENCOUNTER 2019-02-01 09:35 | Emergency (ER) | payer MEDICARE, OTHER ==
[2008-08-13 20:09] VITALS: BP 122/80
[~2019-02-01] VITALS: Ht 144.8 cm; Wt 59.1 kg
[~2019-02-01 09:35] MED LIST changes: -MELAT3MGTAB PO; +MELATIN 3 MG-11 TAB PO; +SENOKOT S 50 MG1 TAB PO
[2019-02-01 13:50] VITALS: BP 112/60; PULSE 62
== END 2019-02-01 13:52 | disposition home or self-care (01) ==
LOC: COL.ER 09:35
DX: K94.23 Gastrostomy malfunction (principal); I25.10 Atherosclerotic heart disease of native coronary artery without angina pectoris; J44.9 Chronic obstructive pulmonary disease, unspecified; I50.9 Heart failure, unspecified; Z79.02 Long term (current) use of antithrombotics/antiplatelets

== ENCOUNTER 2019-02-02 23:36 | Inpatient (IN) | payer MEDICARE, OTHER ==
[~2019-02-02] VITALS: Ht 144.8 cm; Wt 60.0 kg
[2019-02-03] VITALS (644 sets, daily range): BP systolic 94–124; BP diastolic 42–71; PULSE 4–77; TEMP 97.6–98; O2SAT 63–100
[2019-02-03 00:35] LABS: BASO % 0.2 % (0.0-2.0); EOS # 0.4 (0.0-0.7); EOS % 2.7 % (0-4.0); GRAN # 11.1 (1.4-6.5); GRAN % 83.8 % (42.2-75.2); LYMPH % 7.2 % (20.0-51.0); MEAN CELL VOLUME 98 fl (80.0-100.0); MEAN CORPUSCULAR HGB CONC 33 g/dl (33.0-37.0); MEAN PLATELET VOLUME 9.7 fl (7.4-10.4); MONO # 0.7 (0.1-0.6); MONO % 5.6 % (1.7-9.3); PLATELET COUNT 171 K/mm3 (130-400); RED BLOOD COUNT 1.76 M/mm3 (4.10-5.30); REDCELL DISTRIBUTION WIDTH-CV 13.7 % (11.5-14.5)
[2019-02-03 00:39] LABS: HEMATOCRIT 17.3 % (37.0-47.0); HEMOGLOBIN 5.7 g/dl (12.5-16.0); MEAN CORPUSCULAR HEMOGLOBIN 32 pg (27.0-31.0)
[2019-02-03 00:40] LABS: INR 1.1 (0.8-3.0); PROTHROMBIN TIME 12.4 SECONDS (9.7-12.8)
[2019-02-03 00:43] LABS: PARTIAL THROMBOPLASTIN TIME 30.1 SECONDS (26.0-37.0)
[2019-02-03 00:50] LABS: ALANINE AMINOTRANSFERASE < 6 U/L (9-52); ALKALINE PHOSPHATASE 190 U/L (50-136); ANION GAP 6 mmol/L (7-16); AST,SGOT 12 U/L (15-37); BILIRUBIN,TOTAL 0.3 mg/dL (0.0-1.0); BLOOD UREA NITROGEN 37 mg/dL (7-17); CARBON DIOXIDE 25 mmol/L (22-30); CHLORIDE 104 mmol/L (98-107); CREATININE, serum 0.92 (0.52-1.25); GLUCOSE 142 mg/dL (74-106); POTASSIUM 4.2 mmol/L (3.4-5.0); SODIUM 135 mmol/L (137-145)
--- NOTE | 2019-02-03 01:19 | NUR ---
RECEIVED REPORT FROM JIMMIE RUTH IN ED. AWAITING ARRIVAL OF PT TO UNIT.
--- NOTE | 2019-02-03 01:37 | NUR ---
PT ARRIVES VIA STRETCHER TO ICU 1 ON RA. NO ACUTE S/S OF DISTRESS NOTED UPON ARRIVAL. PT ASSISTED TO ICU BED AND PLACED ON BEDSIDE CONTINUOUS MONITOR. PT APPEARS PALE. ADULT BREIF REMOVED AND NOTED SMEAR OF DARK RED STOOL TO BOTTOM. PT CLEANED UP. 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
--- NOTE | 2019-02-03 02:07 | NUR ---
DISCUSSED PRBC ADMINISTRATION WITH PT AND SON AT BEDSIDE. SON IS DPOA, PT HAS SON SIGN PAPERWORK. PT VERBALIZES YES TO CONSENT TO BLOOD ADMINISTRATION. #1 PRBC STARTED.
[2019-02-03] MEDS ORDERED: VOLTAREN 75 DR75 MG PO (02:35)
[2019-02-03] MEDS ORDERED: ZTLIDO1 EACH TP (02:40)
--- NOTE | 2019-02-03 02:40 | NUR ---
HOSPITALIST AT BEDSIDE FOR ASSESSMENT, NEW ORDERS. PT INFORMED OF EGD TODAY, VERBALIZED UNDERSTANDING.
[2019-02-03] MEDS ORDERED: DULCOLAX S10 MG/SUPP RC (02:44)
[2019-02-03] MEDS ORDERED: IMODIUM 2MG CAPS2 MG PO ×2 (02:45→02:46)
[2019-02-03] MEDS ORDERED: GOOD NEIGH1200 MG/15 PO (02:47)
[2019-02-03] MEDS ORDERED: MYLANTA 150 ML150 M1 PO (02:49)
[2019-02-03] MEDS ORDERED: PACERONE100 MG PO (02:54)
[2019-02-03] MEDS ORDERED: SINEMET CR 50 M1 TER PO (02:57)
[2019-02-03] MEDS ORDERED: TYLENOL SU650 MG/SUP RC (03:04)
[2019-02-03 05:15] LABS: COLLECTION METHOD CLEAN CATCH
[2019-02-03 05:25] LABS: PH 6 (5-8); SQUAMOUS EPITHELIAL 20-50 /hpf; URINE APPEARANCE Hazy; URINE BACTERIA Occasional /hpf; URINE BILIRUBIN Negative (NEGATIVE); URINE BLOOD 2+ (NEGATIVE); URINE COLOR Yellow; URINE GLUCOSE Negative (NEGATIVE); URINE KETONE Negative (NEGATIVE); URINE LEUKOCYTE ESTERASE 1+ (NEGATIVE); URINE NITRATE Negative (NEGATIVE); URINE PROTEIN(semi-quant) Negative (NEGATIVE); URINE UROBILINOGEN Negative (NEGATIVE)
--- NOTE | 2019-02-03 05:41 | NUR ---
#2PRBC STARTED, SEE TAR VS.
--- NOTE | 2019-02-03 07:20 | NUR ---
REPORT GIVEN TO JIMMIE PEREZ.
--- NOTE | 2019-02-03 07:50 | NUR ---
REPORT GIVEN TO JIMMIE RUTH.
--- NOTE | 2019-02-03 08:00 | NUR ---
FLUSHED PT'S PEG TUBE.
[2019-02-03 10:19] LABS: BASO % 0.4 % (0.0-2.0); EOS # 0.3 (0.0-0.7); EOS % 2.9 % (0-4.0); GRAN # 8.3 (1.4-6.5); GRAN % 77.1 % (42.2-75.2); LYMPH # 1.5 (1.2-3.4); LYMPH % 14.2 % (20.0-51.0); MEAN CELL VOLUME 95 fl (80.0-100.0); MEAN CORPUSCULAR HGB CONC 34 g/dl (33.0-37.0); MONO # 0.5 (0.1-0.6); MONO % 4.7 % (1.7-9.3); PLATELET COUNT 182 K/mm3 (130-400); RED BLOOD COUNT 2.55 M/mm3 (4.10-5.30); REDCELL DISTRIBUTION WIDTH-CV 14.8 % (11.5-14.5)
[2019-02-03 10:22] LABS: HEMATOCRIT 24.2 % (37.0-47.0); MEAN CORPUSCULAR HEMOGLOBIN 32 pg (27.0-31.0)
[2019-02-03 10:23] LABS: HEMOGLOBIN 8.2 g/dl (12.5-16.0)
[2019-02-03 10:51] LABS: CALCIUM 7.4 mg/dL (8.4-10.2); CREATININE, serum 0.77 (0.52-1.25); POTASSIUM 4.2 mmol/L (3.4-5.0)
--- NOTE | 2019-02-03 11:00 | NUR ---
PEG TUBE: AREA OF INSERTION CLEANSED WITH CHLOROPREP, NEW DRAINSPONGE APPLIED AND TAPED WITH PAPER TAPE AROUND PERIMETER OF SPONGE.
--- NOTE | 2019-02-03 14:39 | NUR ---
PT A&O X4. DENIES PAIN.
--- NOTE | 2019-02-03 15:13 | NUR ---
SCHOOL RESOURCE OFFICER student met with the patient to discuss a discharge plan. The patient lives in [place] with her son(DPOA-HC) and [id number]. The patient was at [facility] for a prison stay and plans to go back to finish the course of care. SCHOOL RESOURCE OFFICER student presented the patient choice form and patient's first and only choice is [facility]. The patient has a walker and oxygen at 2L at night and reports independence with ADLs. The patient's PCP is Dr. Hoda Yuan and patient receives medications from [facility]. Patient reports her son picks up her medications. The patient has advanced directives in the EMR. SCHOOL RESOURCE OFFICER student contacted the patient's son/DPOA-HC, Boubacar to update on discharge plan. Boubacar is in agreeance with the plan to return to [facility] to finish course of care. visitor services associate will continue to follow to ensure a safe discharge.
--- NOTE | 2019-02-03 15:59 | NUR ---
WORKPLACE REHABILITATION OFFICER student faxed updates to Sonya at [facility]. protective services social worker will continue to follow.
[2019-02-03 17:08] LABS: HEMATOCRIT 21.9 % (37.0-47.0); HEMOGLOBIN 7.1 g/dl (12.5-16.0)
--- NOTE | 2019-02-03 19:30 | NUR ---
REPORT GIVEN TO JIMMIE OROURKE.
--- NOTE | 2019-02-03 20:10 | NUR ---
Patient assessment completed and charted at this time, please see documentation for details. Patient resting in bed, continuing bowel prep at this time, will continue to monitor.
[2019-02-04] VITALS (540 sets, daily range): BP systolic 113–144; BP diastolic 50–74; PULSE 65–75; TEMP 97.4–98; O2SAT 37–100
[2019-02-04 01:13] LABS: HEMATOCRIT 23.7 % (37.0-47.0)
[2019-02-04 06:17] LABS: BASO # 0.1 (0.0-0.2); BASO % 0.8 % (0.0-2.0); EOS # 0.4 (0.0-0.7); EOS % 6.6 % (0-4.0); GRAN # 3.3 (1.4-6.5); GRAN % 55.8 % (42.2-75.2); LYMPH # 1.6 (1.2-3.4); LYMPH % 26.5 % (20.0-51.0); MEAN CELL VOLUME 93 fl (80.0-100.0); MEAN CORPUSCULAR HGB CONC 33 g/dl (33.0-37.0); MEAN PLATELET VOLUME 10.1 fl (7.4-10.4); MONO # 0.6 (0.1-0.6); MONO % 9.8 % (1.7-9.3); PLATELET COUNT 131 K/mm3 (130-400); RED BLOOD COUNT 2.53 M/mm3 (4.10-5.30); REDCELL DISTRIBUTION WIDTH-CV 16.1 % (11.5-14.5)
[2019-02-04 06:23] LABS: HEMATOCRIT 23.5 % (37.0-47.0); HEMOGLOBIN 7.8 g/dl (12.5-16.0); MEAN CORPUSCULAR HEMOGLOBIN 31 pg (27.0-31.0)
[2019-02-04 06:30] LABS: CALCIUM 6.7 mg/dL (8.4-10.2); CREATININE, serum 0.69 (0.52-1.25); MAGNESIUM 2.1 mg/dL (1.6-2.3); POTASSIUM 3.5 mmol/L (3.4-5.0)
--- NOTE | 2019-02-04 07:45 | NUR ---
PT A&O X4, DENIES PAIN. PT STATES SHE DOES FEEL WEAK THIS AM AND DIDN'T SLEEP MUCH LAST NIGHT ALL DUE TO HAVING FREQUENT STOOLS FROM BOWEL PREP FOR COLOSCOPY TODAY.
--- NOTE | 2019-02-04 10:23 | NUR ---
Initial visit; Patient and her daughter thanked Cna Pct for looking in on her and offering encouragement and prayer. Patient's Machine Icer had visited earlier.
--- NOTE | 2019-02-04 10:27 | NUR ---
BOTTOM FILLER student attended clinical rounds with the team. The patient is to have a colonoscopy this day. BOTTOM FILLER student to fax updates to Sonya at [facility]. executive services administrator will continue to follow.
[2019-02-04 14:11] LABS: HEMOGLOBIN 7.7 g/dl (12.5-16.0)
--- NOTE | 2019-02-04 17:09 | NUR ---
REPORT CALLED TO MEDICAL FLOOR JIMMIE KERR. 1718: PT TO MEDICAL FLOOR RM 310 VIA WC WITH PERSONAL BELONGINGS. PT ASSISTED WITH GAIT BELT TO BED WITH TWO PERSON ASSIST - JIMMIE CHARLES AND JIMMIE KERR. PT CHART IN RACK IN MEDICAL NURSES STATION.
--- NOTE | 2019-02-04 18:37 | NUR ---
Pt arrived late this afternoon from the ICU, med rec done, settled into room.
--- NOTE | 2019-02-04 21:11 | NUR ---
Resting in bed. Assessment complete. Lungs clear. Heart sounds normal. Bowels active x4. Pulses strong throughout. PEG tube dressing CDI-patient states she flushes in AM. Denies pain at this time. Midline flushed without complications. Denies needs at this time. Call light in reach.
[2019-02-05 04:10] VITALS: BP 165/90; PULSE 72; TEMP 97.5
[2019-02-05 04:39] VITALS: BP 116/73
--- NOTE | 2019-02-05 04:41 | NUR ---
Patient up to recliner x2 assist. Denies pain. Denies needs at this time. Call light in reach.
--- NOTE | 2019-02-05 06:21 | NUR ---
Patient had uneventful night. Required x1 dose of norco for patient. Resting in recliner this AM. Denies needs. Call light in reach.
--- NOTE | 2019-02-05 07:07 | NUR ---
Report given to JIMMIE Sandoval
[2019-02-05 07:31] VITALS: BP 126/48; PULSE 97; TEMP 97.6
[2019-02-05 08:36] LABS: BASO % 0.7 % (0.0-2.0); EOS # 0.4 (0.0-0.7); EOS % 7.7 % (0-4.0); GRAN # 3.5 (1.4-6.5); GRAN % 62.1 % (42.2-75.2); LYMPH # 1.3 (1.2-3.4); LYMPH % 22.3 % (20.0-51.0); MEAN CELL VOLUME 95 fl (80.0-100.0); MEAN CORPUSCULAR HGB CONC 32 g/dl (33.0-37.0); MEAN PLATELET VOLUME 9.4 fl (7.4-10.4); MONO # 0.4 (0.1-0.6); MONO % 6.8 % (1.7-9.3); PLATELET COUNT 126 K/mm3 (130-400); RED BLOOD COUNT 2.59 M/mm3 (4.10-5.30); REDCELL DISTRIBUTION WIDTH-CV 16.5 % (11.5-14.5)
[2019-02-05 08:37] LABS: HEMATOCRIT 24.5 % (37.0-47.0); HEMOGLOBIN 7.9 g/dl (12.5-16.0); MEAN CORPUSCULAR HEMOGLOBIN 31 pg (27.0-31.0)
[2019-02-05 08:49] LABS: CALCIUM 7.2 mg/dL (8.4-10.2); CREATININE, serum 0.66 (0.52-1.25); MAGNESIUM 2.2 mg/dL (1.6-2.3); POTASSIUM 3.8 mmol/L (3.4-5.0)
--- NOTE | 2019-02-05 09:38 | NUR ---
Pt awake and alert, family in room, no C/O pain at this time, shift assessments complete, left Pt sitting in recliner, call light in reach.
[2019-02-05] MEDS ORDERED: NORCO 325 MG-51 TAB PO (10:01)
[2019-02-05] MEDS ORDERED: OS-CAL 500 + D1 TAB PO (10:05)
--- NOTE | 2019-02-05 11:16 | NUR ---
The patient is to discharge today, 02/05, back to [facility] for a skilled stay. SW notified the patient's son, via the patient's caregivers' ([employer]) speaker phone. The patient and the patient's son was in agreeance to this. Transportation was scheduled for 1300, via [facility]. NATASHA informed the patient, patient's caregiver, and nurse. They were all in agreeance to the time. No additional needs at this time.
[2019-02-05 11:38] VITALS: BP 136/72; PULSE 75; TEMP 98.3
--- NOTE | 2019-02-05 13:26 | NUR ---
Pt discharged to [facility], picked up and transported via their transportation.
== END 2019-02-05 13:27 | DRG 378 ==
LOC: COL.ER 23:36 → MEDICAL 02-03 01:13 → ICU 02-03 01:13 → MEDICAL 02-04 18:07
PROVIDERS: Emergency Medicine; Hospitalist; Internal Medicine Gastroenterology; Nurse Practitioner Family; ADMIT Internal Medicine
PROC: 0DJ08ZZ Inspection of Upper Intestinal Tract, Via Natural or Artificial Opening Endoscopic (ICD-10-PCS; 2019-02-03)
PROC: 02HV33Z Insertion of Infusion Device into Superior Vena Cava, Percutaneous Approach (ICD-10-PCS; principal; 2019-02-03 11:30)
PROC: 0DJD8ZZ Inspection of Lower Intestinal Tract, Via Natural or Artificial Opening Endoscopic (ICD-10-PCS; 2019-02-04)
DX: K57.91 Diverticulosis of intestine, part unspecified, without perforation or abscess with bleeding (principal); I50.30 Unspecified diastolic (congestive) heart failure; E87.2 Acidosis; I25.10 Atherosclerotic heart disease of native coronary artery without angina pectoris; I48.0 Paroxysmal atrial fibrillation; E11.9 Type 2 diabetes mellitus without complications; G20 Parkinson's disease; J44.9 Chronic obstructive pulmonary disease, unspecified; I95.9 Hypotension, unspecified; G40.909 Epilepsy, unspecified, not intractable, without status epilepticus; D64.9 Anemia, unspecified; K22.0 Achalasia of cardia; E83.51 Hypocalcemia; E87.6 Hypokalemia; Z95.0 Presence of cardiac pacemaker; Z93.1 Gastrostomy status; Z90.89 Acquired absence of other organs; Z95.5 Presence of coronary angioplasty implant and graft; Z90.11 Acquired absence of right breast and nipple; Z87.01 Personal history of pneumonia (recurrent); I25.2 Old myocardial infarction; Z98.51 Tubal ligation status; Z79.84 Long term (current) use of oral hypoglycemic drugs; Z87.440 Personal history of urinary (tract) infections
CPT/HCPCS: 99222-AI; 99232-AI; 99239; C1751; C1892; C9113; J1815; J2405; J2704; J3480; J7030; J7042; P9016

== ENCOUNTER → 2019-05-17 | Outpatient (CLI) | payer MEDICARE, OTHER ==
[~2019-05-17] MED LIST changes: +GOOD NEIGH1200 MG/15 PO; +MYLANTA 150 ML150 M1 PO; +OS-CAL 500 + D1 TAB PO; +VOLTAREN 75 DR75 MG PO; +ZTLIDO1 EACH TP
== END ==
LOC: COL.RAD 09:39
DX: K94.23 Gastrostomy malfunction (principal); R11.10 Vomiting, unspecified; R13.10 Dysphagia, unspecified; R63.0 Anorexia

== ENCOUNTER 2019-05-30 09:27 | Inpatient (IN) | payer MEDICARE, OTHER ==
[2019-05-30] VITALS (491 sets, daily range): BP systolic 84–166; BP diastolic 46–131; PULSE 59–65; TEMP 97.4–97.9; O2SAT 83–100
[~2019-05-30] VITALS: Ht 144.8 cm; Wt 54.4 kg
[2019-05-30 10:42] LABS: COLLECTION METHOD CATHETER
[2019-05-30 10:50] LABS: MEAN CELL VOLUME 94 fl (80.0-100.0); MEAN CORPUSCULAR HGB CONC 32 g/dl (33.0-37.0); MEAN PLATELET VOLUME 9.9 fl (7.4-10.4); PLATELET COUNT 201 K/mm3 (130-400); RED BLOOD COUNT 2.01 M/mm3 (4.10-5.30); REDCELL DISTRIBUTION WIDTH-CV 15.1 % (11.5-14.5)
[2019-05-30 10:56] LABS: HEMATOCRIT 18.9 % (37.0-47.0); HEMOGLOBIN 6.1 g/dl (12.5-16.0); MEAN CORPUSCULAR HEMOGLOBIN 30 pg (27.0-31.0)
[2019-05-30 11:03] LABS: ALBUMIN 2.6 gm/dL (3.5-5.0); BILIRUBIN,TOTAL 0.7 mg/dL (0.0-1.0); CALCIUM 7.9 mg/dL (8.4-10.2); CREATININE, serum 1.06 (0.52-1.25); TOTAL PROTEIN 5.8 gm/dL (6.4-8.2)
[2019-05-30 11:06] LABS: PH 6 (5-8); SQUAMOUS EPITHELIAL 0-2 /hpf; URINE APPEARANCE Clear; URINE BACTERIA None Seen /hpf; URINE BILIRUBIN Negative (NEGATIVE); URINE BLOOD Negative (NEGATIVE); URINE COLOR Amber; URINE GLUCOSE Negative (NEGATIVE); URINE KETONE Negative (NEGATIVE); URINE LEUKOCYTE ESTERASE Negative (NEGATIVE); URINE NITRATE Negative (NEGATIVE); URINE PROTEIN(semi-quant) Negative (NEGATIVE); URINE RBC 0-2 /hpf; URINE UROBILINOGEN Negative (NEGATIVE)
[2019-05-30 11:10] LABS: INR 1.2 (0.8-3.0); PROTHROMBIN TIME 13.6 SECONDS (9.7-12.8)
[2019-05-30 11:15] LABS: ANISOCYTOSIS 1+; BAND 15 % (0-10); HYPOCHROMIA 2+; LYMPHOCYTE 8 % (20.0-51.0); NEUTROPHILS 69 % (42.0-75.2); PLATELET ESTIMATE NORMAL (NORMAL)
[2019-05-30] MEDS ORDERED: K-TAB20 PO (14:38)
[2019-05-30] MEDS ORDERED: BRILINTA60 MG PO (14:39)
[2019-05-30] MEDS ORDERED: LASIX 40MG TABL40 MG PO (14:41)
[2019-05-30] MEDS ORDERED: SANCTURA20 MG PO (14:49)
[2019-05-30] MEDS ORDERED: CRANBERRY250 MG PO (14:57)
[2019-05-30 17:45] LABS: GASTROCCULT NEGATIVE
--- NOTE | 2019-05-30 19:20 | NUR ---
Bedside report received from JIMMIE Otto
--- NOTE | 2019-05-30 20:00 | NUR ---
Patient asleep but awakens to name and slight tactile stimuli, patient is oriented to self, location, and year. Month and reason for being in the hospital were unknown to her. No complaints of pain or signs of distress. vitals obtained and are stable. Assessment complete. Patients lungs are clear bilaterally with diminished bases. HR and rhythm are regular with a murmur. Bowel sounds active x4. Peripheral pulses are palpable. No edema noted. Patient has no further needs at this time. Will continue to monitor. Call light within reach.
[2019-05-30 23:37] LABS: HEMATOCRIT 21.7 % (37.0-47.0)
[2019-05-31] VITALS (608 sets, daily range): BP systolic 85–108; BP diastolic 44–59; PULSE 61–71; TEMP 97–98.2; O2SAT 84–100
[2019-05-31 05:38] LABS: BASO % 0.3 % (0.0-2.0); EOS % 0.3 % (0-4.0); GRAN # 4.8 (1.4-6.5); GRAN % 75.6 % (42.2-75.2); LYMPH % 15.6 % (20.0-51.0); MEAN CELL VOLUME 93 fl (80.0-100.0); MEAN CORPUSCULAR HGB CONC 33 g/dl (33.0-37.0); MONO # 0.5 (0.1-0.6); MONO % 7.6 % (1.7-9.3); PLATELET COUNT 166 K/mm3 (130-400); RED BLOOD COUNT 2.73 M/mm3 (4.10-5.30); REDCELL DISTRIBUTION WIDTH-CV 16.6 % (11.5-14.5)
[2019-05-31 05:42] LABS: HEMATOCRIT 25.4 % (37.0-47.0); HEMOGLOBIN 8.3 g/dl (12.5-16.0); MEAN CORPUSCULAR HEMOGLOBIN 30 pg (27.0-31.0)
[2019-05-31 05:49] LABS: CALCIUM 7.6 mg/dL (8.4-10.2); CREATININE, serum 0.91 (0.52-1.25); MAGNESIUM 2.3 mg/dL (1.6-2.3); POTASSIUM 3.3 mmol/L (3.4-5.0)
[2019-05-31 05:53] LABS: PROTHROMBIN TIME 11.7 SECONDS (9.7-12.8)
--- NOTE | 2019-05-31 06:00 | NUR ---
Patient has only produced 150ml of urine tonight via purewick external catheter. Bladder scan performed and almost 800ml of urine found to be in the bladder. Dr Hallman notified and orders received for urinary catheter. 18F Bernstein catheter placed. Immediate return of 725ml of jeffrey urine with sediment. Sercurement device placed on left upper thigh. Patient tolerated well. Pericare provided.
--- NOTE | 2019-05-31 07:09 | NUR ---
Bedside report given to JIMMIE Hubbard
--- NOTE | 2019-05-31 09:57 | NUR ---
ALMAZ wadsworth met with the patient (corey) and the patient's son/DPOA-HC, Boubacar. The patient lives in [place] with Boubacar and his . Boubacar reports he has been assisting the patient with ADLs for approximately the last six months. Boubacar also reports the patient cannot ambulate on her own, if she does it is very little. He does report there is a home health agency that visits the home 4x a week for 6 hours a day. The patient's PCP is Dr. Yuan and patient receives medications from [facility]. Boubacar inquired about long-term care for the patient. ALMAZ wadsworth provided Boubacar with Medicare.gov's list of nursing homes in the patient's geographical location. A pallative care consult was ordered for the patient. payroll services analyst will continue to follow to ensure a safe discharge.
--- NOTE | 2019-05-31 11:02 | NUR ---
The patient is to tranfer to surgical floor this day. VALIDATION MANAGER student informed surgical floor NATASHA.
--- NOTE | 2019-05-31 11:25 | NUR ---
REPORT CALLED TO MILE SAMUEL. ALL QUESTIONS ANSWERED. 1100 MEDS GIVEN AND BG CHECKED. SPEECH WORKING WITH PT THEN WILL TRANSFER TO 345.
--- NOTE | 2019-05-31 11:40 | NUR ---
Spoke with son on phone today to discuss goals of care. Boubacar Harrison is Ivania's DPOA-HC and has been providing care for her in the home. he is reaching a point that he feels he wants the time he spends with his mother to be quality time--not personal care like cleaning up incontinence. He states "I can do it, and I have been, but it is not something as her son that I want to keep doing--she needs 24 hour care. He is planning on returning to the hospital tomorrow around 9am. I will plan on meeting with him then to further discuss goals of care. He will also discuss with his raul. The patient herself is very weak and short of breath with minimal effort to talk. She seemed relieved when I offered to speak with her son.
--- NOTE | 2019-05-31 12:06 | NUR ---
Pt transfered to medical bed and placed on tele box. Pt transfered upstairs to room 345.
--- NOTE | 2019-05-31 12:10 | NUR ---
PATIENT ADMITED INTO ROOM 345 FROM ER WITH ANEMIA. PATIENT IS SLEEPING. VSS. NO NEEDS.
--- NOTE | 2019-05-31 12:17 | NUR ---
Patient transferred to surgical bed 345 via medical bed with no complications. Patient oriented to new room, personal belongings placed in closet, bed in lowest position, side rails up x3, and JIMMIE Power notified of patient's arrival. Call light placed within reach of patient. Patient has no complaints or concerns at this time.
--- NOTE | 2019-05-31 20:30 | NUR ---
Pt. laying in bed with eyes closed. Pt. is alert and intermittantly confused. pt. repositioned for comfort. Pill given through PEG tube witout complcations. Pt. denies further needs, call light within reach
[2019-06-01 03:38] VITALS: BP 101/48; PULSE 72; TEMP 97.8
[2019-06-01 07:29] VITALS: BP 105/50; PULSE 67; TEMP 98.8
[2019-06-01 07:50] LABS: BASO % 0.5 % (0.0-2.0); EOS % 0.7 % (0-4.0); GRAN # 4.1 (1.4-6.5); GRAN % 69.2 % (42.2-75.2); LYMPH # 1.1 (1.2-3.4); LYMPH % 19.1 % (20.0-51.0); MEAN CELL VOLUME 93 fl (80.0-100.0); MEAN CORPUSCULAR HGB CONC 32 g/dl (33.0-37.0); MEAN PLATELET VOLUME 9.8 fl (7.4-10.4); MONO # 0.6 (0.1-0.6); MONO % 9.2 % (1.7-9.3); PLATELET COUNT 174 K/mm3 (130-400); RED BLOOD COUNT 2.86 M/mm3 (4.10-5.30); REDCELL DISTRIBUTION WIDTH-CV 17.3 % (11.5-14.5)
[2019-06-01 07:51] LABS: HEMATOCRIT 26.6 % (37.0-47.0); HEMOGLOBIN 8.6 g/dl (12.5-16.0); MEAN CORPUSCULAR HEMOGLOBIN 30 pg (27.0-31.0)
--- NOTE | 2019-06-01 08:00 | NUR ---
Patient in bed resting. Alert and oriented x 3. Assessment complete. Bernstein to dependent drainage with clear jeffrey urine in bag. Patient states she feels like she needs to have a BM, assisted patient to bedpan. No BM, had dark/black colored smears. Fluids infusing per orders. Caregiver at bedside, educated caregiver about contact precautions. Repositioned patient for comfort. Sacrum with ulcers. Heel protectors on. Denies further needs at this time.
--- NOTE | 2019-06-01 08:00 | NUR ---
Per Brii MARTE, patients potassium at 3.8, do not replace at this time.
[2019-06-01 08:01] LABS: CALCIUM 8.1 mg/dL (8.4-10.2); CREATININE, serum 0.84 (0.52-1.25); POTASSIUM 3.8 mmol/L (3.4-5.0)
--- NOTE | 2019-06-01 09:38 | NUR ---
Today I visited with son and a "caregiver" in the room with patient. Son did not seem to remember the conversation from yesterday initially but then did acknowledge. I reminded him about talking regarding goals of care for his mother--which he quickly responded I want her to be comfortable. We reviewed her risk of aspiration "which is not new". Pt does have a feeding tube in place. Risk of aspiration, even with tube usage, is still present. Son states he knows that--but it isn't that bad as our tests showed last time she was here. He states that he "is considering placing his mother in a shelter but doesn't know where he would consider or even if that is his final decision. He stated his sister is coming on June 12 and they will have a family meeting then to discuss goals of care. We did talk of hospice services but he was not interested in further discussion. He wants to be able to spend quality time with his mother and does report he is not wanting his last memories to be ofo providing personal hygiene.
--- NOTE | 2019-06-01 10:11 | NUR ---
NATASHA collaborated with palliative care nurse, Janett. Janett reports that she has met with the patient's son, Boubacar, and that he is not yet ready for hospice and that he may be interested in usp placement. NATASHA then followed up with the patient, her son (Boubacar), and caregiver (Helga). Boubacar reports that he is interested in trying to get the patient a little bit stronger, to where she would be able to stand on her own. Boubacar reports that he is interested in SNF for the patient. He states that his sister will be flying here on 06/12 and then they will make further decisions, such as long-term care for the patient. NATASHA presented and explained the Patient Choice Form and provided him with Medicare.gov's list of nursing homes in the [facility]. The patient's son chose 1) [facility] 2) [facility]. Patient Choice Form signed by the patient's son, Boubacar, and he declined a copy. NATASHA contacted and faxed a referral to both facilities. SW awaiting their screens.
--- NOTE | 2019-06-01 11:06 | NUR ---
Sonya, at [facility], reports that they are able to accept the patient for a skilled stay. SW to inform the patient's son and will continue to follow.
[2019-06-01 11:59] VITALS: BP 133/62; PULSE 76; TEMP 98.5
--- NOTE | 2019-06-01 15:00 | NUR ---
Notified Brii AMRTE that speech therapy has seen patient and state she is able to tolerate pureed diet with nectar thick liquids. No new orders at this time.
[2019-06-01 15:36] VITALS: BP 115/53; PULSE 77; TEMP 97.4
--- NOTE | 2019-06-01 16:11 | NUR ---
Cj, at [facility], reports that they are able to accept the patient for a skilled stay. SW to inform the patient's son and will continue to follow.
--- NOTE | 2019-06-01 16:32 | NUR ---
Contacted Brii MARTE, patient had some oral intake and began leaking out around G-tube site. Patient to remain NPO for now.
--- NOTE | 2019-06-01 19:14 | NUR ---
Patient has done well throughout the day. Has had x2 black BMs today. Patient sat up to recliner x 2 today, x2 max assist to recliner and back to bed. Caregiver in throughout the day. Repostioned while in bed. Denies further needs at this time. Reported off to shift production supervisor.
[2019-06-01 19:31] VITALS: BP 112/53; PULSE 66; TEMP 97.9
--- NOTE | 2019-06-01 22:00 | NUR ---
Pt. laying in bed at this time. Pt. is alert and oriented but is forgettful at times. Shift assessment complete. INT to lt. wrist discontinued, not flushing. IV to rt. forearm patent, IV fluids infusing per orders. Peg tube gauze changed at this time. Pt. denies pain or other needs, call light within reach.
[2019-06-02] VITALS: BP 110/62; PULSE 65; TEMP 97.9
[2019-06-02 02:50] VITALS: BP 102/63; PULSE 75; TEMP 97.9
[2019-06-02 07:49] LABS: MEAN CELL VOLUME 93 fl (80.0-100.0); MEAN CORPUSCULAR HGB CONC 33 g/dl (33.0-37.0); MEAN PLATELET VOLUME 9.9 fl (7.4-10.4); PLATELET COUNT 161 K/mm3 (130-400); RED BLOOD COUNT 2.94 M/mm3 (4.10-5.30); REDCELL DISTRIBUTION WIDTH-CV 16.9 % (11.5-14.5)
[2019-06-02 07:52] LABS: HEMATOCRIT 27.4 % (37.0-47.0); HEMOGLOBIN 8.9 g/dl (12.5-16.0); MEAN CORPUSCULAR HEMOGLOBIN 30 pg (27.0-31.0)
[2019-06-02 08:06] LABS: CALCIUM 8.4 mg/dL (8.4-10.2); CREATININE, serum 0.68 (0.52-1.25)
[2019-06-02 08:29] LABS: BAND 17 % (0-10); EOSINOPHIL 2 % (0-4); LYMPHOCYTE 10 % (20.0-51.0); NEUTROPHILS 67 % (42.0-75.2); PLATELET ESTIMATE NORMAL (NORMAL)
[2019-06-02 09:00] VITALS: BP 124/57; PULSE 84; TEMP 97.6
[2019-06-02 11:32] VITALS: BP 96/51; PULSE 67; TEMP 97.6
--- NOTE | 2019-06-02 11:46 | NUR ---
NATASHA met with the patient and her son, Boubacar, to update on referrals. The patient's son would like to pursue with their first preference, [facility]. NATASHA updated Cj at [facility]. NATASHA faxed updates to [facility] and [facility]. NATASHA to continue to follow.
[2019-06-02 15:31] VITALS: BP 122/57; PULSE 72; TEMP 97.4
[2019-06-02 19:22] VITALS: BP 110/64; PULSE 73; TEMP 97.9
[2019-06-03] VITALS: BP 118/61; PULSE 76; TEMP 97.7
--- NOTE | 2019-06-03 03:40 | NUR ---
Patient doing well tonight. alert and partially oriented. harrington catheter DC'd, 9ml aspirated from balloon. catheter removed without difficulty. external catheter in place. patient has had several loose black bm this evening. PEG tube feeding done without issues. c/o nausea and prn zofran pushed. IV to R hand and L FA patent and flushes. IV ABX infusing without difficulty. skin tear noted to R willis and dressed. no further needs at this time. will continue to monitor.
[2019-06-03 04:00] VITALS: BP 136/64; PULSE 78; TEMP 98.1
[2019-06-03 06:55] LABS: MEAN CELL VOLUME 95 fl (80.0-100.0); MEAN CORPUSCULAR HGB CONC 32 g/dl (33.0-37.0); MEAN PLATELET VOLUME 9.7 fl (7.4-10.4); PLATELET COUNT 159 K/mm3 (130-400); RED BLOOD COUNT 2.97 M/mm3 (4.10-5.30); REDCELL DISTRIBUTION WIDTH-CV 16.7 % (11.5-14.5)
[2019-06-03 07:13] LABS: CALCIUM 8.6 mg/dL (8.4-10.2); CREATININE, serum 0.53 (0.52-1.25); POTASSIUM 4.2 mmol/L (3.4-5.0)
[2019-06-03 07:16] LABS: HEMATOCRIT 28.1 % (37.0-47.0); HEMOGLOBIN 9.1 g/dl (12.5-16.0); MEAN CORPUSCULAR HEMOGLOBIN 31 pg (27.0-31.0)
[2019-06-03 08:06] LABS: BAND 17 % (0-10); EOSINOPHIL 1 % (0-4); LYMPHOCYTE 11 % (20.0-51.0); NEUTROPHILS 63 % (42.0-75.2); PLATELET ESTIMATE NORMAL (NORMAL)
[2019-06-03 08:07] LABS: ANISOCYTOSIS 1+
--- NOTE | 2019-06-03 09:00 | NUR ---
Patient up from upper GI, in bed resting. Alert and partially oriented. Assessment complete. Patient drowsy after procedure, VSS. G tube to right quadrant. Denies pain at this time. Denies further needs at this time
[2019-06-03 12:16] VITALS: BP 107/65; PULSE 71; TEMP 98.5
--- NOTE | 2019-06-03 16:00 | NUR ---
The patient is to tentatively discharge tomorrow, 06/04. NATASHA notified and faxed updates to Sonya at [facility]. NATASHA contacted and updated the patient's son, Boubacar. Boubacar is in agreeance to the discharge. NATASHA also explained the IM form to Boubacar. Boubacar gave SW his verbal consent. SW to continue to follow.
[2019-06-03 16:32] VITALS: BP 122/62; PULSE 72; TEMP 97.2
--- NOTE | 2019-06-03 17:54 | NUR ---
Patient has done well throughout the day. Has been up in recliner through the day. Dark tarry stools x 2 today. Patient is a heavy 2 assist to comode and back to recliner. Antibiotics infusing per orders via pump. Denies further needs at this time. Will report off to automatic mold sander.
--- NOTE | 2019-06-03 20:00 | NUR ---
PATIENT RESTING IN BED DURING SHIFT CHANGE REPORT FROM DAY SHIFT NURSE. NO OTHER NEEDS REPORTED.
[2019-06-03 20:50] VITALS: BP 137/67; PULSE 79; TEMP 97.4
--- NOTE | 2019-06-04 00:30 | NUR ---
PATIENT RESTING IN BED, AWAKENS WITH NAME CALLED, PATIENT TOLERATING MEDS THROUGH G-TUBE AND WATER FLUSHES.
[2019-06-04 02:07] VITALS: BP 137/64; PULSE 85; TEMP 98.3
[2019-06-04 04:14] VITALS: BP 117/61; PULSE 81; TEMP 98.6
--- NOTE | 2019-06-04 06:30 | NUR ---
ASSISTED PATIENT TO USE HER CELL PHONE ATTEMPTING TO CONTACT HER SON, GOT VOICE MAIL, PATIENT LEFT MESSAGE FOR HER SON TO CALL HER.
[2019-06-04 07:31] LABS: BASO % 0.5 % (0.0-2.0); EOS # 0.1 (0.0-0.7); EOS % 1.1 % (0-4.0); GRAN # 4.7 (1.4-6.5); GRAN % 71.2 % (42.2-75.2); LYMPH # 1.3 (1.2-3.4); LYMPH % 19.2 % (20.0-51.0); MEAN CELL VOLUME 96 fl (80.0-100.0); MEAN CORPUSCULAR HGB CONC 32 g/dl (33.0-37.0); MEAN PLATELET VOLUME 10.2 fl (7.4-10.4); MONO # 0.5 (0.1-0.6); MONO % 7.2 % (1.7-9.3); PLATELET COUNT 156 K/mm3 (130-400); RED BLOOD COUNT 2.65 M/mm3 (4.10-5.30); REDCELL DISTRIBUTION WIDTH-CV 16.2 % (11.5-14.5)
[2019-06-04 07:32] LABS: HEMATOCRIT 25.3 % (37.0-47.0); HEMOGLOBIN 8.1 g/dl (12.5-16.0); MEAN CORPUSCULAR HEMOGLOBIN 31 pg (27.0-31.0)
[2019-06-04 07:35] LABS: CALCIUM 8.3 mg/dL (8.4-10.2); CREATININE, serum 0.49 (0.52-1.25); MAGNESIUM 1.6 mg/dL (1.6-2.3); POTASSIUM 3.6 mmol/L (3.4-5.0)
--- NOTE | 2019-06-04 07:44 | NUR ---
PATIENT RESTING IN BED DURING SHIFT CHANGE REPORT GIVEN TO DAY SHIFT NURSE, DID NOT AWAKEN WHEN ROOM ENTERED.
[2019-06-04 08:25] VITALS: BP 133/67; PULSE 81; TEMP 98.7
[2019-06-04] MEDS ORDERED: AMOXICILLIN 8751 TAB PO (11:43)
[2019-06-04] MEDS ORDERED: DOXYCYCLINE HY100 MG PO (11:44)
[2019-06-04 13:08] VITALS: BP 127/72; PULSE 67; TEMP 97.2
--- NOTE | 2019-06-04 14:26 | NUR ---
The patient is to discharge today, 06/04, to [facility] for a skilled stay. Transportation was scheduled for 1545, via [facility]. SW informed the patient's son (Boubacar) and her RN. They were both in agreeance to the time. No additional needs at this time.
[2019-06-04 16:04] VITALS: BP 127/72; PULSE 67; TEMP 97.2
--- NOTE | 2019-06-04 16:26 | NUR ---
Patient transferred to [facility] with transportation staff via wheelchair to [facility]. Paperwork sent. Report called to
== END 2019-06-04 16:10 | DRG 811 ==
LOC: COL.ER 09:27 → ICU 11:14 → EDBEDREQSVC 13:12 → EDBEDREQ 13:12 → ICU 05-31 09:36 → SURG 05-31 12:00
PROVIDERS: Emergency Medicine; Internal Medicine Gastroenterology; Nurse Practitioner Family; Physician Assistant; Student in an Organized Health Care Education/Training Program; ADMIT Internal Medicine
PROC: 0DJ08ZZ Inspection of Upper Intestinal Tract, Via Natural or Artificial Opening Endoscopic (ICD-10-PCS; principal; 2019-06-03 07:00)
DX: D50.0 Iron deficiency anemia secondary to blood loss (chronic) (principal); J69.0 Pneumonitis due to inhalation of food and vomit; I50.32 Chronic diastolic (congestive) heart failure; E44.0 Moderate protein-calorie malnutrition; R41.82 Altered mental status, unspecified; K22.0 Achalasia of cardia; L97.529 Non-pressure chronic ulcer of other part of left foot with unspecified severity; I25.10 Atherosclerotic heart disease of native coronary artery without angina pectoris; I48.0 Paroxysmal atrial fibrillation; G20 Parkinson's disease; E87.6 Hypokalemia; E11.649 Type 2 diabetes mellitus with hypoglycemia without coma; J44.9 Chronic obstructive pulmonary disease, unspecified; I95.9 Hypotension, unspecified; R53.81 Other malaise; G40.909 Epilepsy, unspecified, not intractable, without status epilepticus; A49.02 Methicillin resistant Staphylococcus aureus infection, unspecified site; Z68.23 Body mass index [BMI] 23.0-23.9, adult; I25.2 Old myocardial infarction; Z79.84 Long term (current) use of oral hypoglycemic drugs; Z95.5 Presence of coronary angioplasty implant and graft; Z95.0 Presence of cardiac pacemaker; Z93.1 Gastrostomy status; Z87.440 Personal history of urinary (tract) infections; Z88.6 Allergy status to analgesic agent
CPT/HCPCS: 99223-AI; 99232-AI; 99233-AI; 99239; A4314; C9113; J1815; J2405; J2543; J2704; J3370; J3475; J3480; J7030; J7042; J7050; P9016